=== PATIENT | male | born 2005 | race Caucasian/White ===

== ENCOUNTER → 2024-10-17 12:36 | Outpatient (BNVA) | payer OTHER, SELFPAY | PROVIDERS: PCP Pediatrics; Visit Provider Physician Assistant Surgical ==

== ENCOUNTER 2024-10-24 08:19 | Outpatient (AMB) | payer OTHER, SELFPAY ==
--- OUTSIDE RECORDS SUMMARY | 2024-10-24 08:36 | XMS_ITS | Data Portability ---
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 Winter use Not Available Not Available Not Available Pulmicort Flexhaler 180 mcg/actua tion breath activated active Not Available Not Available No t Available Flovent Diskus 250 mcg/actua tion powder for inhalatio n Inhale by inhalati on route. 09/29 completed Not Available Not Available Not Available Multi-Vit jensen With Fluoride 1 mg chewable tablet TAKE 1 TABLET BY MOUTH EVERY DAY 04/08 completed Not Available Not Available Not Available Vitals Date Recorded Body height Body mass index (BMI) Body mass index (BMI) Percentile per age and sex Body weight Systolic blood pressure Diastolic blood pressure Provider Name and Address Organization Details Last Updated DateTime 2 179.07 cm 42.2 kg/m2 99 % 763108. 53 g 116 mm[Hg] 66 mm[Hg] Cheli Nina [facility] 2 13:13:45 Date Recorded Body height Body mass index (BMI) Percentile per age and sex Body weight Body mass index (BMI) Systolic blood pressure Diastolic blood pressure Provider Name and Address Organization Details Last Updated DateTime 4 179.07 cm 99 % 200943. 85 g 47.2 kg/m2 122 mm[Hg] 72 mm[Hg] Elisabeth Long CMA [facility] 4 14:15:53 Date Recorded Body mass index (BMI) Percentile per age and sex Provider Name and Address Organization Details Last Updated DateTime 03/04/2024 99 % ADIEL CASTRO MD [address] [place] [address], [id number], [facility] 03/04/2024 14:33:36 Social History Question Answer Notes LastModified by Organizat ion Details LastModified Time Tobacco Smoking Status Never Smoker Not Available [facility] 05/11/2020 03:14:21 What Type Of Diet Are You Following? REGULAR [id number] Information not available 05/11/2020 Education Less Than 8th Grade [email or web address] Information not available 05/13/2011 Have There Been Any Changes To Your Family Or Social Situation? No [id number] Information not available 05/11/2020 Hard Of Hearing Or Deaf In One Or Both Ears? No Information not available 09/24/2015 Legally Blind In One Or Both Eyes? No Information not available 09/24/2015 Parent's Marital Status Unmarried [email or web address] Information not available 05/13/2011 Home Situation Both Parents Information not available 05/13/2011 Siblings Fingerville (M) 06/22/2006, Allison (F) 10/24/2012 Alliana (F) 04/16/2014 Information not available 04/21/2014 Childcare? None [email or web address] Information not available 05/13/2011 Passive Smoke Exposure No [email or web address] Information not available 05/13/2011 Year In School College Starting spring. 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 [employer] [id number] Information not available 05/11/2020 Do You Use Your Seat Belt Or Car Seat Routinely? Yes [id number] Information not available 05/11/2020 Are You Passively Exposed To Smoke? No nasselin Information not available 01/23/2013 How Much Tobacco Do You Smoke? No [id number] Information not available 05/11/2020 What Types Of Sporting Activities Do You Participate In? ACTIVE AT HOME [id number] Information not available 05/11/2020 General Stress Level Low Information not available 05/13/2011 Do You Use Any Illicit Or Recreational Drugs? No [id number] Information not available 05/11/2020 Have You Recently Traveled Abroad? No [id number] Information not available 05/11/2020 Year In School Kindergarten Information not available 05/13/2011 Sex: Unknown Functional Status Question Answer Note LastModified by Organization D etails LastModified Time What is your exercise level? Moderate [id number] Information not available 05/11/2020 Mental Status None recorded. Family History Relationship Description Onset Age of this Age Resolved Age Notes LastModified by Organization Details LastModified Time Paternal Grandfather Seizure disorder klisien Not available 2015 16:39:24 Paternal Grandfather Diabetes mellitus previo usly record ed as Diabet es klisien Not available 09/24/2015 16:39:24 Paternal Grandmother Seizure disorder klisien Not available 2015 16:39:24 Maternal Grandmother Blood coagulation disorder previo usly record ed as Bleedi ng Disord ers klisien Not available 09/24/2015 16:39:24 Brother Seizure disorder klisien Not available 2015 16:39:24 Brother Asthma klisien Not available 0 09/24/2015 16:39:24 Father Seizure disorder klisien Not available 2015 16:39:24 Father Hypercholest erolemia previo usly record ed as Elevat ed Choles terol klisien Not available 09/24/2015 16:39:24 Father Asthma klisien Not available 16:39:24 Mother Obese previo usly record ed as Obesit y klisien Not available 09/24/2015 16:39:24 Notes:Updated 03/01 Medical History Condition Response CARDIAC PROBLEMS Y ALLERGIC AND IMMUNOLOGIC PROBLEMS Y DEVELOPMENTAL/ BEHAVIORAL PROBLEMS Y HOSPITALIZATIONS N ACCIDENTS INJURIES Y VISION IMPAIRMENT Y ENDOCRINE PROBLEMS/DIABETES Y GI PROBLEMS/CONSTIPATION N CHICKEN POX / VARICELLA HISTORY or POSIT GUIDO TITER N ORTHOPEDIC PROBLEMS N MUSCLE/ JOINT/ BONE PROBLEMS Y DERMATOLOGIC PROBLEMS/ECZEMA Y ENT PROBLEMS/OTITIS MEDIA/ CHRONIC Y RENAL PROBLEMS Y HEMATOLOGIC /ONCOLOGIC PROBLEMS N OTHER Y NEUROLOGIC/ SEIZURES OR CONVULSIONS Y ADHD Y HEADACHES/MIGRAINES/DIZZINESS N CONGENITAL AND GENETIC PROBLEMS N INFECTIOUS DISEASE PROBLEMS Y PUMONARY PROBLEMS/ ASTHMA Y PSYCH PROBLEMS Y Immunizations Vaccine Type Date Status Note Provider Name and Address Organization Details Recorded Time MMR 09/25/19 08 completed Not Available [facility] 05/13/2011 03:19:09 DTP 01/06/20 04 completed Not Available [facility] 05/13/2011 03:19:09 DTP 03/24/20 05 completed Not Available [facility] 05/13/2011 03:19:09 DTP 11/04/19 04 completed Not Available [facility] 05/13/2011 03:19:09 DTP 03/16/20 04 completed Not Available [facility] 05/13/2011 03:19:20 IPV 01/06/20 04 completed Not Available [facility] 05/13/2011 03:19:09 IPV 11/04/19 04 completed Not Available [facility] 05/13/2011 03:19:20 IPV 03/24/20 05 completed Not Available [facility] 05/13/2011 03:19:09 Hib, unspecified formulation 11/04/19 04 completed Not Available [facility] 05/13/2011 03:19:09 Hib, unspecified formulation 12/03/19 05 completed Not Available [facility] 05/13/2011 03:19:09 Hib, unspecified formulation 03/16/20 04 completed Not Available [facility] 05/13/2011 03:19:09 MMR 12/03/19 05 completed Not Available [facility] 05/13/2011 03:19:20 Hib, unspecified formulation 01/06/20 04 completed Not Available [facility] 05/13/2011 03:19:09 Hep B, unspecified formulation 06/16/20 04 completed Not Available [facility] 05/13/2011 03:19:09 Hep B, unspecified formulation 10/01/19 04 completed Not Available [facility] 05/13/2011 03:19:09 Hep B, unspecified formulation 09/04/19 04 completed Not Available [facility] 05/13/2011 03:19:09 pneumococcal conjugate PCV 7 11/04/19 04 completed Not Available [facility] 05/13/2011 03:19:09 pneumococcal conjugate PCV 7 09/08/19 05 completed Not Available [facility] 05/13/2011 03:19:09 pneumococcal conjugate PCV 7 03/16/20 04 completed Not Available [facility] 05/13/2011 03:19:09 varicella 09/08/19 05 completed Not Available [facility] 05/13/2011 03:19:09 pneumococcal conjugate PCV 7 01/06/20 04 completed Not Available [facility] 05/13/2011 03:19:09 Tdap 09/12/19 15 completed Not Available [facility] 07/26/2019 02:33:47 meningococcal MCV4P 09/12/19 15 completed Not Available [facility] 07/26/2019 02:35:59 DTaP, unspecified formulation 09/30/19 09 completed Not Available [facility] 05/13/2011 03:17:07 IPV 09/30/19 09 completed Not Available [facility] 05/13/2011 03:17:07 varicella 09/30/19 09 completed Not Available [facility] 05/13/2011 03:19:09 HPV9 09/14/19 16 completed Not Available [facility] 07/26/2019 02:36:41 HPV9 11/17/19 16 completed Not Available [facility] 07/26/2019 02:36:44 HPV9 12/09/19 17 completed Not Available [facility] 07/26/2019 02:37:40 COVID-19, mRNA, LNP-S, PF, 30 mcg/0.3 mL dose 12/04/19 21 completed María Mccollum RN null, [facility] 02/23/2021 08:26:38 COVID-19, mRNA, LNP-S, PF, 30 mcg/0.3 mL dose 12/25/19 21 completed María Mccollum RN null, [facility] 02/23/2021 08:27:11 COVID-19, mRNA, LNP-S, PF, 30 mcg/0.3 mL dose 09/07/19 22 completed Karen Hall null, [facility] 09/08/2021 08:26:52 meningococcal MCV4P 04/08/20 20 completed Jory Carlos MD [address] [place] [address], , [facility] 04/08/2020 17:09:01 Hep A, ped/adol, 2 dose 04/08/20 20 completed Jory Carlos MD [address] [place] [address], , [facility] 04/08/2020 17:09:01 Influenza, split virus, quadrivalent, PF 04/08/20 20 completed Jory Carlos MD [address] [place] [address], , [facility] 04/08/2020 17:09:01 meningococcal B, OMV 04/08/20 20 cancelled patient objection Jory Carlos MD [address] [place] [address], , [facility] 04/08/2020 15:22:46 Hep A, ped/adol, 2 dose 09/30/19 22 completed Cheli Wood null, [facility] 09/29/2021 14:26:09 meningococcal B, OMV 09/30/19 22 completed Cheli rollins, [facility] 09/29/2021 14:26:10 Past Encounters Encounter ID Performer Location Encounter Start Date Encounter Closed Date Diagnosis/Indication Diagnosis SNOMED-CT Code Diagnosis ICD10 Code Diagnosis Note [id number] P[facility]a [facility] [address] [facility] [place] [address] 05/14/2007 14:35:27 05/14/2007 15:38:49 [id number] [facility] [place] [facility] [address] [place] [address] 06/05/2007 11:01:13 06/05/2007 11:02:10 [id number] [facility] [place] [facility] [address] [place] [address] 07/03/2007 14:46:11 07/03/2007 15:46:25 [id number] [facility] [place] [facility] [address] [place] [address] 08/16/2007 16:45:08 08/16/2007 17:03:09 [id number] [facility] [place] [facility] [address] [place] [address] 09/25/2007 10:05:09 09/25/2007 11:07:20 [id number] [facility] [place] [facility] [address] [place] [address] 01/21/2008 00:00:00 03/18/2009 01:23:50 [id number] [facility] [place] [facility] [address] [place] [address] 06/19/2008 15:48:51 03/18/2009 01:23:50 [id number] [facility] [place] [facility] [address] [place] [address] 07/29/2008 15:52:07 03/18/2009 01:23:50 [id number] [facility] [place] [facility] [address] [place] [address] 09/29/2008 09:42:09 09/29/2008 10:47:58 [id number] [facility] [place] [facility] [address] [place] [address] 10/14/2008 14:36:38 10/14/2008 15:11:44 [id number] [facility] [place] [facility] [address] [place] [address] 11/03/2008 11:09:36 11/03/2008 11:36:26 [id number] [facility] [place] [facility] [address] [place] [address] 4 09/13/2009 16:59:46 09/13/2009 18:10:28 [id number] Karen Hall [facility] [place] [facility] [address] [place] [address] 12/22/2009 13:27:39 12/22/2009 15:20:55 [id number] [facility] [place] [facility] [address] [place] [address] 04/13/2010 13:03:34 04/13/2010 13:51:14 [id number] [facility] [place] [facility] [address] [place] [address] 09/07/2010 12:50:29 09/07/2010 13:03:56 [id number] [facility] [place] [facility] [address] [place] [address] 09/26/2010 09:10:24 09/26/2010 09:30:24 [id number] Karen Hall [facility] [place] [facility] [address] [place] [address] 05/25/2011 13:07:00 05/25/2011 14:51:09 [id number] [facility] [place] [facility] [address] [place] [address] 06/05/2011 15:45:31 06/05/2011 17:08:07 [id number] [facility] [place] [facility] [address] [place] [address] 06/19/2011 14:50:22 06/19/2011 16:43:15 [id number] [facility] [place] [facility] [address] [place] [address] 06/21/2011 09:33:49 06/21/2011 10:21:18 [id number] [facility] [place] [facility] [address] [place] [address] 08/22/2011 14:22:23 08/22/2011 16:33:30 [id number] [facility] [place] [facility] [address] [place] [address] 4 09/13/2011 14:43:51 09/13/2011 15:18:36 [id number] [facility] [place] [facility] [address] [place] [address] 4 01/30/2012 14:33:41 01/30/2012 15:16:08 [id number] Karen Hall [facility] [place] [facility] [address] [place] [address] 09/12/2012 13:15:01 09/12/2012 16:30:43 [id number] Jory Carlos MD [address] [address] 10/30/2012 12:48:45 10/30/2012 14:16:[id number] [address] 01/23/2013 13:37:33 01/23/2013 17:22:03 Obesity 811335041 Continue w/excellen t control-BM I now 91%-and down 3 lbs. Will hold off on labs since doing so well. Will continue 1 yucky snack-no amilcar drinks-ski m milk-watch portions and exercise. F/u 2 months [id number] Miracle Ramirez [address] [address] 03/26/2013 13:35:21 03/26/2013 15:42:13 Eczema 67938695 using westcort cream qd-will increase to bid. Continue moisturize r Asthma 321398617 Just started the flovent-re cent visit Dr Vines-f/u in 07/22 Allergy 014648656 ? trou ble w/peanuts- will give epipen to have and refer to gold leaf printer Abnormal weight gain 582685261 Continues to do well-BMI now only @ 88%. Does have appt w/wgt management next month. Will f/u here prn. [id number] Jory Carlos MD [address] [address] 09/12/2013 13:11:48 09/12/2013 15:26:49 Well child 127007893 Adjustment disorder 51157666 Was seen at [facility] by Suni Lucas-saw X 1 year-wasn' t helpful-wi ll be starting w/a new therapist- Allergy 911295533 ? trou ble w/peanuts- has epipen still needs to see gold leaf printer Asthma 521056876 On flovent-rl ast visit Dr Vines 03/2013-nee ds f/u appt Attention deficit hyperactivity disorder, combined type 61665024 Was seen Psychiatry at [facility]-w as on stimulant- was on meds x 2-4 weeks-only tried 1 medication -mom to contact them again-if they won't see him I will need the records and will f/u here for eval. 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 Eczema 45313771 using westcort cream prn Continue moisturize r Seizure 19979488 Dr Light- no seizures in 2 years-disc harged him 2011 Childhood obesity 087196407 Large wgt gain-over last 6 months-BMI @ 93%-next appt w/wgt mangement in 3 months [id number] Leilani Casey MD [facility] [place] [facility] [address] [place] [address] 10/13/2013 18:03:54 10/13/2013 18:14:04 Acute pharyngitis 208878080 [id number] Katiuska Parks M.A. [facility] [address] [place] [address] 06/11/2014 10:16:18 06/11/2014 11:27:47 Acute pharyngitis 781396810 Concussion [id number] Karen Hall [facility] [address] [place] [address] 09/11/2014 13:10:37 09/11/2014 16:50:17 Well child 357364682 will defer HPV for now Asthma 526280375 On flovent- sees Dr Vines-will start albuterol before exercise Allergy 487206064 ? trou ble w/peanuts- has epipen still needs to see gold leaf printer Childhood obesity 344656839 has appt w/weight management scheduled- will defer labs to them Adjustment disorder 51500039 sees therapist at [facility] Attention deficit hyperactivity disorder, combined type 17084420 Seen by Psychiatry at [facility]- has been tried on medication -has 504 plan Developmen grey academic disorder 5928907 Had testing thru [facility]-d id recommend IEP 10/2010--fan s 504 plan now for ADHD. Eczema 19242604 using westcort cream prn Continue moisturize r Seizure 09652384 Dr Light- no seizures in 3 years-disc harged him [id number] [address] 09/22/2014 16:02:17 09/22/2014 16:45:07 Asthma 983095083 Viral syndrome 296844071 [id number] Preethi Mcdermott [address] [address] 12/09/2014 16:00:04 12/09/2014 17:14:11 Impetigo bullosa 937382472 [id number] Jory Carlos MD [address] [address] 01/06/2015 15:28:43 01/06/2015 17:16:06 Injury of finger 83357439 [id number] Jory Carlos MD [address] [address] 03/19/2015 16:32:47 03/19/2015 17:44:26 Acute pharyngitis 807933845 Asthma 671959225 restart flovent [id number] Jory Carlos MD [address] [address] 04/28/2015 15:30:59 04/28/2015 17:29:31 Acute pharyngitis 525489657 J02.9 Knee pain 61208478 M25.5 62 Longstandi ng intermitte nt knee pain [id number] Chin Hi [address] [address] 08/18/2015 14:50:17 08/18/2015 15:24:28 Acute pharyngitis 646403072 J02.9 Asthma 842799958 J45.90 9 Upper resp iratory infection 53112096 J06.9 [id number] Jory Carlos MD [address] [address] 09/14/2015 11:00:34 09/14/2015 12:55:47 Active or passive immunization 509246032 Z23 Well child 223098493 Z00 .129 Allergy 110163381 Z91.09 ? trouble w/peanuts- has epipen still needs to see gold leaf printer Asthma 350556092 J45.90 9 on flovent-se es Dr Vines-last visit ? 03/2014-mila nguyen make f/u appt Adjustment disorder 1722 600 F43.20 stopped seeing therapist at [facility] approx 3 months ago--would n't talk w/therapis t. Behavior is better Attention deficit hyperactivity disorder, combined type 54481743 F90.2 Seen by Psychiatry at [facility]- in the past-has been tried on medication X 1- -has 504 plan Developmen grey academic disorder 8032340 F81.9 has 504 plan now for ADHD. Eczema 99591179 L30.9 using westcort cream prn Continue moisturize r & dove soap Knee pain 10806161 M25.5 67 saw ortho- not an issue now Childhood obesity 164353 003 Z68.54 saw wgt management x 1- -BMI stable @ 95%-will return to weight management -will get labs done there [id number] Sophia Han [facility] [address] [place] [address] 09/24/2015 16:08:06 09/24/2015 17:05:22 Acute pharyngitis 832464854 J02.9 Streptococ amilcar sore throat 58782387 J02.0 [id number] Jory Carlos MD [facility] [employer] [address] 11/17/2015 15:27:29 11/17/2015 15:44:17 Active or passive immunization 911841598 Z23 [id number] Jory Carlos MD [facility] [employer] [address] 05/26/2016 15:45:21 05/26/2016 17:15:59 Asthma 253415340 J45.[address] Vines-? still needs to be on flovent ( last filled 07/2014 ) Low back pain 418930746 M54.5 pelvic rim pain posteriorl y w/running- x 2 weeks-? muscular- vs SI joint-will stretch before running-tr y ibuprofen- if still an issue in a few weeks will refer to sports medicine [id number] Jory Carlos MD [facility] [employer] [address] [address] 06/07/2016 14:01:52 06/07/2016 17:19:36 Child attention deficit disorder 736782893 F90.9 [id number] MD DK George Anitha hogan [address] [place] [address] [place] [address] 07/27/2016 12:41:57 07/27/2016 14:35:53 Child attention deficit disorder 581617054 F90.9 currently on Adderall 10 XR daily-pare nt scales w/ small improvemen t-do not have rn social work which had the most impairment . Will get that now and increase to 20 mg. Will f/u by phone in 2 weeks. Can use only school days now. Watch weight since has had some loss.Get repeat scales before next visit.Mom to talk with school about testing for LD. Did have neuropsych testing in 2010 through [facility] that had some issues demonstrat ed. 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 He does have some itrritabil ity after school and has some trouble getting homework done. Will try Adderall 5 mg after school-can increase to 10 mg.Can continue to use only school days now.Mom to talk with school about testing for LD again Did have neuropsych testing in 2010 through [facility] that had some issues demonstrat ed assistant professor of english shows problems with written and expressive language that can signal LD.f/u at [facility]-needs to schedule. Will schedule dedicated ADD recheck after that. [id number] MD DK George Anitha hogan [address] [place] [address] [place] [address] 12/08/2016 11:26:17 12/08/2016 13:31:52 Active or passive immunization 629961210 Z23 Well child 816511142 Z00 .129 will test for LD next year. EXcellent weight control-al though BMI still > 85%-likely combinatio n ADD meds and healthy eating. Will be following at ADD rechecks. Child atte ntion deficit disorder 496652191 F90.9 JUst saw this week-ramiro skelton on Adderall 20 XR daily, teacher scales w/ much improvemen t except hong konger which is worse.Vick oleary also does not like that teacher. He does have some irritabili ty after school and has some trouble getting homework done. Will try Adderall 5 mg after school-can increase to 10 mg.Can continue to use only school days now. Will be off for the summer. Will meet at the end of the summer /beginning or the school year. Allergy 986919313 Z91.09 ? trouble w/peanuts- has epipen still needs to see gold leaf printer- appt 02/2017 Adjustment disorder 1722 6007 F43.20 stopped seeing therapist at [facility] 2016--woul dn't talk w/therapis t. Behavior is better Developmen grey academic disorder 3987430 F81.9 has 504 plan now for ADHD. Asthma 665146103 J45.[address] Vines 2013-only uses when exercise for a long time-will use 2 puffs before exercise -if doesn't work will f/u. MDI demonstrat ed and info sheet given. Eczema 51977728 L30.9 resolved [id number] Jory Carlos MD [address] [address] 05/23/2017 10:14:21 05/23/2017 11:53:15 Child attention deficit disorder 751862331 F90.9 Currently on Adderall 20 XR school days. Teacher scales are great!!! 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 No trouble getting homework done now after school. Got crabby w/ Adderall 5 mg after school. Has 504 plan. Behavior is better. Weight increase likely 2nd to being off medication for the summer. Goals met. Will still pursue the eval for LD since needing outside help to be successful . Will remeet in 3 months. Needs to have something for lunch. Asthma 570710414 J45.90 9 will use before basketball Seborrheic dermatitis of scalp 914235916 L21.0 diffuse scaling-us e dandruff shampoo [id number] Jory Carlos MD [facility] [place] [address] [place] [address] 10/10/2017 10:25:58 10/10/2017 12:02:25 Child attention deficit disorder 079623305 F90.9 Currently on Adderall 20 XR school days. . Got crabby w/ Adderall 5 mg after school. Has 504 plan.Grade s are excellent! !! Goals met. Never pursued eval for LD since was doing so well in school. Will remeet in 2 months. at [facility]. Will meet after the summer after school has been in session for a few months & get teacher scales before then. [id number] Jory Carlos MD [facility] [place] w [address] [place] [address] 01/03/2018 14:46:38 01/03/2018 17:50:07 Well child 634964620 Z00.129 Mom to get [employer] book Re: Teenagers Overweight in childhood 353611032 Z68.53 increase in BMI to 93%-discus sed healthy eating and exercise- goal will be to keep weight the same-will f/u at next ADD checK Disorder of vision 78027 002 H53.9 no glasses-mo m to check to see when he needs his next appt Child atte ntion deficit disorder 284377371 F90.9 Currently on Adderall 20 XR school days. Will be off medication for the summer. . Got crabby w/ Adderall 5 mg after school. Has 504 plan.Grade s are much better. Goals met. Never pursued eval for LD since was doing so well in school. Will meet after the summer after school has been in session for a few months & get teacher scales before then. Allergy 972469739 Z91.09 saw gold leaf printer 04/24-has epipen-nee ds f/u 04/25 Adjustment disorder 1722 6007 F43.20 stopped seeing therapist at [facility] 2015--woul dn't talk w/therapis t. Behavior is better-see ms like typical teen Developmen grey academic disorder 3622383 F81.9 has 504 plan now for ADHD. Asthma 833122769 J45.90 9 will use before basketball -MDI demonstrat ed ( had poor technique) Eczema 64066668 L30.9 still an issue-west yannick prn Verruca vulgaris 5550665 3 B07.9 OTC meds 1st-f/u cryo prn [id number] Jory Carlos MD [facility] [place] [address] [facility] [address] 03/20/2018 15:53:33 03/20/2018 17:29:15 Child attention deficit disorder 718334361 F90.9 Currently on Adderall 20 XR school days. Was off medication for the summer. . Has 504 plan. Goals were met last year. Never pursued eval for LD since was doing so well in school.Now starting 8th grade feels disorganiz ed and less focused. Will increase to 30 mg-remeet in 2- 4 weeks & get teacher scales before then. Will contact me sooner if any issues on the increased dose of medication . Will continue melatonin for sleep. [id number] Jory Carlos MD [facility] [place] [address] [place] [address] 06/21/2018 10:44:58 06/21/2018 12:25:12 Child attention deficit disorder 547206677 F90.9 Currently on Adderall 30 XR school days.Incre ased from 20XR this school year. Has 504 plan. Melatonin works well for sleep. Discussed limiting screen time 1.5 hrs before bedtime to help with sleep issues. . Teacher's scales are all good-excep t some impairment noted in social studies. Grades however are not good in hong konger or social studies. Bunny is not sure that his medication is working any better at the higher dose- & appetite has decreased. Will try 20 XR again and see if he notices a difference . Mom to call me next week w/ progress. Will start on weekends also to see if life is better. Will then fill script for whatever works best. Never pursued eval for LD since was doing so well in school last year- really struggles w/ hong konger and social studies this this year in 8th grade. Mom to pursue now. Did have eval 2011 that was suggestive of speech and language issues. Adjustment disorder 1722 6007 F43.20 [facility] her weekly- just started- re: behavior at home Verruca vulgaris 5381543 3 B07.9 wart-cryo today. Info sheet given. [id number] Jory Carlos MD [address] [address] 10/04/2018 16:11:54 10/04/2018 17:25:22 Child attention deficit disorder 237890597 F90.9 Currently on Adderall 30 XR school days.Incre ased from 20XR this school year. Has 504 plan. Bunny is not getting enough sleep at night. Melatonin works well for sleep. Will increase to 5 mg Discussed limiting screen time 1.5 hrs before bedtime to help with sleep issues. . Teacher's scales were all good-excep t some impairment noted in social studies. Unclear how grades are right now. Never pursued eval for LD since was doing so well in school last year- really struggles w/ hong konger Did have eval 2011 that was suggestive of speech and language issues. Mom still needs to pursue eval. F/u at [facility] in 3 months. [id number] Jory Carlos MD [facility] [address] [address] 12/06/2018 10:42:51 12/06/2018 14:55:14 Allergy 014313573 Z91.09 Near syncope 575298462 R 55 had an episode near syncope- will work on breakfast and a snack- work on hydration. Does NOT sound like a seizure. No need for EEG at this point [id number] Jory Carlos MD [address] [address] 03/07/2019 08:23:32 03/07/2019 12:36:51 Well child 986549913 Z00.129 Can stop fluoride now. Will try OTC wart removal for wart on elbow. 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 Will hold off on labs unless unable to decrease weight. Eventual goal is is low 170s. Child atte ntion deficit disorder 592581287 F90.9 Has been off medication during the summer. Currently on Adderall 30 XR school days.. Has 504 plan. Melatonin works well for sleep. 5 mg . Bunny seemed to struggle in school last year.Did do educationa l testing last year. Has not found evidence of LD. Will get me a copy of the testing Did have eval 2011 that was suggestive of speech and language issues. Will need teacher scales before next appt. F/u in 2 months for recheck Asthma 379040459 J45.[address] Vines- started flovent and singulair- f/u w/ him in 2-3 months Allergy to peanut 694384 09 Z91.010 peanut allergy- epipens . Needs f/u w/ gold leaf printer Eczema 46514283 L30.9 has been doing well Adjustment disorder 1722 6007 F43.20 no longer seeing therapist since insurance doesn't cover [employer] [facility]- stopped seeing her at the end of the school year. Seems to be doing ok. Disorder of vision 43183 002 H53.9 needs appt w/ Dr antoine Anxiety 35698309 F41.9 improved [id number] Jory Carlos MD [address] [address] 05/09/2019 11:05:07 05/09/2019 12:18:53 Child attention deficit disorder 667357939 F90.9 On Adderall 30 XR taking school days- grades faily good- hong konger is a bit of a struggle- just had retesting done in school- no LD found but weakness in verbal comp. Will continue 504 plan.Bradley nue melatonin for sleep. f/u in 4 months- sooner if any change.Matt marcio get teacher scales when possible but before next next visit. Complainin g of - postnasal drip 899653033 R09.82 PND past 3 weeks- will try flonase- if not better in 1 week will treat for sinusitis w/ amox Increased body mass index 22210890 Z68.41 excellent weight control- weight down from 192-> 183. Will aim for BMI of 25 ( approx 173 lbs ) [id number] Jory Carlos MD [address] [address] 04/08/2020 14:31:27 04/08/2020 16:59:26 Child attention deficit disorder 579803230 F90.9 Last year was on Adderall 30 XR taken school days- Bunny felt like that was an OK dose- Has been off medication this year so far- needs to restart it.Will continue 504 plan.Since online , teacher scales will not be helpful. F/u 2 months. Allergy to peanut 960870 09 Z91.010 peanut allergy- ? epipens - will check. . Needs f/u w/ gold leaf printer ? 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 2019 had retesting done in school- no LD found but weakness in verbal comp. Asthma 489336443 J45.[address] Vines- 04/26- on flovent and singulair- will call to see if he needs a f/u appt Adjustment disorder 1722 6007 F43.20 no longer seeing therapist . Seems to be doing ok. Eczema 52640175 L30.9 has been doing well- not active for over a year Disorder of vision 80462 002 H53.9 needs appt w/ Dr antoine Well child 312614765 Z00 .129 Disc ADILSON. Continue melatonin for sleep. BP high today ( nervos re : immunizati ons. Will recheck at ADD recheck . Meningitis B vaccine before college. Active or passive immunization 387678149 Z23 Childhood obesity 796059 003 Z68.54 BMI continues to increase and now is >> 95%- discussed need to get weight down. 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 Will work on healthy eating- watch snacks and portions- needs to expand diet to eat more fruits and veggies. Check BMI labs. Will recheck at ADD checks. Eventual goal is is low 170s. May need referral to weight management clinic. Exercises education, guidance, and counseling 337734095 Z71.82 Diet education 72081496 Z71.3 Verruca vulgaris 8754327 3 B07.9 will do cryo when returns for ADD recheck [id number] Aleja Turk [address] [facility] [place] [address] 06/04/2020 10:45:23 06/04/2020 17:37:13 SARS-CoV-2 535817150 U07.1 Viral syndrome 820827879 B34.9 [id number] Jory Carlos MD [facility] An[place] [address] [address] 06/25/2020 14:22:44 06/25/2020 15:53:15 Child attention deficit disorder 614773629 F90.9 Last year was on Adderall 30 XR taken school days- Bunny felt like that was an OK dose. Restarted Adderall after [facility] a few months ago.504 plan.Since online , teacher scales will not be helpful.Gr ades aren't good but Bunny thinks that is because school is onlineCont inue melatonin school nights.F/u 3 months. Verruca vulgaris 5511303 3 B07.9 Nothing obvious today to cryo- will observe Excessive weight gain 22 0299298 R63.5 BMI >> 99 %- large weight gain over the past Tiny-will refer to weight management . Will limit dairy to 4 servings. Get a portion plate. Go to [employer]NJO[employer] ate.gov. Goal is 180 lbs. 2200- 2400 cals a day. Will continue daily exercise. Will recheck in 3 month at next visit. Increased blood pressure 18911204 R03.0 Today BP was excellent. [id number] Phong Swenson MD [facility] [place] [address] [address] 09/27/2020 15:40:49 09/27/2020 15:55:48 Paronychia of toe 645864061 L03.039 [id number] [facility] [address] [address] 02/23/2021 08:03:26 02/23/2021 14:21:45 Child attention deficit disorder 001300601 F90.9 ON adderall 30 XR school days- Bunny thinks this is a good dose -Grades weren't good but Bunny thinks that is because school was online.Dad is concerned that Bunny is forgetful about chores but I am not convinced that this is ADD related.We discussed some ways that may be help Bunny remember to do his chores.Has 504 plan. Continue melatonin school nights.F/u 3 months. Increased body mass index 73580587 Z68.41 Almost 50 lb weight gain over the past year- BMI >>>99 % - Bunny is already exercising 1 hr a day- has cut back on milk. NO calorie drinks. Will work on decreasing snacks more. Would get a potion plate. Sibs already on wait list for weight management . If he can get his weight down I will follow him here. Will repeat BMI labs at [facility] in a few months [id number] Phong Swenson MD [facility] [address] [place] [address] 03/07/2021 08:31:35 03/08/2021 14:04:40 Tuberculosis screening 162068781 Z11.1 [id number] Jory Carlos MD [facility] [place] [address] [place] [address] 09/29/2021 13:05:18 09/29/2021 17:26:53 History of SARS-CoV-2 7850362949 03580024 Z86.16 Had Covid 2 months ago- back to activity- never had cardiac recheck Anxiety 42105684 F41.9 no longer an issue Child atte ntion deficit disorder 265104625 F90.9 Had been on adderall 30 XR school days- Bunny thought this was a good dose. At his last ADD recheck 7 months ago , Dad was concerned that Bunny was forgetful about chores but I was not convinced that that was ADD related.We discussed some ways that might help Bunny remember to do his chores. Last refill for medication was 6 months ago . He was supposed to f/u in 3 months.Has 504 plan.Ramya than decided that he wanted to try off his medication - he feels that he is doing well. If he is interested in restarting medication he will let us know Developmen grey academic disorder 8884958 F81.9 Has 504 plan now for ADHD. 2019 had retesting done in school- no LD found but weakness in verbal comp. Allergy to peanut 290090 09 Z91.010 Peanut allergy- epipens - Needs f/u w/ gold leaf printer ? last visit 2017 Asthma 489191815 J45.[address] Vines- 04/26- was on flovent and singulair- stopped medication a while ago. Has not needed to use albuterol . Does have it at home. If starts to need it frequently will f/u. Eczema 93474050 L30.9 Not an issue for a while Adjustment disorder 1722 6007 F43.20 no longer seeing therapist . Seems to be doing ok. Disorder of vision 07615 002 H53.9 needs appt w/ opthal- it has been a long time since his last visit- used to wear glasses Verruca vulgaris 1743385 3 B07.9 resolved Childhood obesity 522669 003 Z68.54 BMI is 42.2. Bunny has gained 28 lbs from his last WCC but has lost 4 lbs over the past 7 months. Will continue to work on healthy eating- watch snacks and portions- needs to expand diet to eat more veggies.Ev entual goal is is low 170s.Will recheck weight in 3 months.Jamison lifies for bariatric surgery since BMI is > 40. May need referral to weight management clinic-if at his recheck weight increases. Last checked BMI labs 2019- needs repeat ( didn't check LFTs ) Hypertriglyceridemia 302 825046 E78.1 last trig 260- will repeat fasting Active or passive immunization 685909736 Z23 Active immunization 3387 9002 Z23 Adult heal th examination 715154735 Z00.00 Disc ADILSON. Continue melatonin for sleep. [id number] Leilani Casey MD [address] [address] 02/08/2022 13:31:01 02/08/2022 14:45:51 Impetigo bullosa 048951450 L01.03 [id number] Jory Carlos MD [address] [address] 05/12/2022 16:34:16 05/12/2022 19:59:36 Acute pharyngitis 618119886 J02.9 [id number] Leilani Casey MD [address] [address] 01/16/2024 16:18:16 01/16/2024 17:11:45 Acute pharyngitis 828671728 J02.9 Asthma 376993725 J45.90 9 [id number] ADIEL CASTRO MD [address] [address] 03/04/2024 14:07:27 03/05/2024 07:29:27 Adult health examination 851573346 Z00.00 Diet education 07029426 Z71.3 Exercises education, guidance, and counseling 697193473 Z71.82 Screening for disorder 725915080 Z13.31 Abnormal weight gain 161 932773 R63.5 Morbid obesity 596021665 E66.01 Health Concerns Section Related Observation LastModified by Organization Detai ls LastModified Time None Recorded Concern Status LastModified by Organization Details LastModified Time None Recorded Advance Directives Directive None Recorded Payers Encounter Date Sequence Insurance Name Policy Number Policy Guerrero Covered Member ID Guerrero Member ID Guarantor Name 09/29/2021 1 [place] [facility] Bunny Koromachelsea Russo [id number] Rosalie Koroma 02/08/2022 1 [place] [facility] Bunny Koromachelsea Russo [id number] Rosalie Koroma 05/12/2022 1 [place] [facility] Koromachelsea Russo [id number] Rosalie Koroma 01/16/2024 1 [place] [facility] Bunny Koromachelsea Russo [id number] Rosalie Koroma 03/04/2024 1 [place] [facility] Bunny Warechelsea Russo [id number] Rosalie Koroma Notes Date Note Type Note Provider Name and Address Organization Details Recorded Time 02/08/2022 text/html RS Sick Visit Narrative HistoryReported bypatient.Notes:Blist er rash started on R arm 3 days ago - spreading to thighs, arms, face. Itchy until they popped - yellow drainage. Not painful. No cough or congestion. No ST. No FAN. Denies myalgias. No N/V/D. Afebrile. Normal energy. Sleeping well. Normal appetite. Applying hydrocortisone cream for itch & triple antibiotic ointment. No OTC Meds taken. No sick contacts. Returned from [email or web address] 3 days ago. Has just started using antibacterial soap. Has been swimming in ocean. Lesions started BUEs - R antecub fossa area and L axilla but not where hair is present, now also on L lower abd/L popliteal fossae/R cheek and R eyebrow Leilani Casey MD [address] [place], [place], , [facility] 02/08/2022 14:06:26 05/12/2022 text/html RS Sick Visit Narrative HistoryReported bypatient.Notes:Pt here for a cough and ST that started 2 days ago.Pt has complained of FAN and body aches. Afebrile. No ear pain. No N/V/D. No new rashes noticed. No chills. No nasal congestion. Appetite slightly decreased. Energy level normal.Nyquil x 1. NO other medication.Has asthma- doesn't feel tight.Negative at home covid test performed yesterday.Brother w/ similar sx. Jory Carlos MD [address] [place] [address], , [facility] 05/12/2022 19:46:33 01/16/2024 text/html RS Sick Visit Narrative HistoryReported bypatient.Notes:Pt is here for a ST x 4 days.Dry cough, Congestion x 4 days.Intermittent SOB noticed 2 days ago. Hasn't been using inhaler.AfebrileNo sx of N/V/D, No FAN, No ear pain, No body aches, Afebrile.OTC meds Taken.Girlfriend dx w/ PNA 2 wks ago.Needs new Rx for inhaler. Leilani Casey MD [address] [place] [address], , [facility] 01/16/2024 16:56:22
--- NOTE | 2024-10-24 10:04 | A.OFFVIS_ITS ---
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 *SEE COMMENTS*: Details: Start time: 9.53am, End time: 10.38am ?I spent 40 minutes speaking with the patient on the phone plus an additional 5 minutes reviewing and updating records for a total of 45 minutes HPI Comments Details: Previous weight loss efforts: self diet this year (lost 20lbs and maintains) Wakes up: 7.30am, Sleeps: 11pm Breakfast: skips Lunch: 3-4/wk 11.30am (Ham and cheese croissant) Dinner: 9pm (chicken tenders and mac & cheese) Snacks: 2-3 snacks before dinner (cereal, chips), one after dinner (same) Exercise: Has home stationary bike Beverages: Coffee/tea: none, soda: Mountain Dew (4 days/wk), juice: none, ETOH: none PFSH Medical History (Updated 10/24/24 @ 10:11 by Rufus Still MD) Anxiety Morbid obesity Blocked tear duct, congenital Epilepsy ADHD Asthma Telehealth Telehealth Telehealth Platform: Telephone Location of provider rendering services: practice address Location of patient: address on file Patient Identification confirmed using: Name, : Yes Telehealth method: voice only Patient verbally consented to treatment: Yes Patient verbally consented to billing insurance company: Yes Patient informed of any privacy concerns related to visit: Yes Minutes spent on Phone/Video with Pt.: 45 Assessment & Plan Assessment & Plan (1) Morbid obesity: Code(s): E66.01 - Morbid (severe) obesity due to excess calories Category: Medical Plan: 1.? Plan for lap sleeve gastrectomy. If diaphragmatic or ventral hernias are present at time of surgery, these will be repaired laparoscopically as well. I emphasized the importance of close follow-up, adherence to instructions and good communication. The surgery does not replace the need to change your lifestlyle which is the cause of the obesity problem. The surgery provides the motivation to try again to change your lifestyle, it reduces the appetite and make the transition to a better lifestyle easier and doubles the amount of weight you would lose compared to doing the lifestyle change without the surgery. You will need to be on a liquid diet with protein shakes for 2 weeks before surgery to maximize weight loss and boost your nutritional status to recover better from surgery and also for the first two weeks after surgery to let the stomach heal before we introduce other foods. After the first 2 weeks we will introduce protein bars and soft foods like scrambled eggs, cottage cheese and yogurt and after the 6th week will introduce meat, fish and cooked vegetables in small amounts. Over time you should be able to eat everything in small amounts. Side effects like nausea, vomiting, heartburn or abdominal pain are not common in the practice unless you are not following in the practice. This operation requires lifetime commitment to following in our practice and communication with me. You will much less weight and experience side effects if you don?t communicate or not following in the practice. Complications are rare and in our practice is about 1/10 of the national average. However, you can develop bleeding that may require transfusion (hasn?t happened for year in the practice), you may from complications (we did not have any deaths in the practice) and infections. Infections are usually a result of breakdown in communication or not understanding or following directions correctly. They are difficult to treat, they can happen during the first 6 weeks, they may require to be in the hospital for weeks or even months, not being able to eat by mouth and you may have drains and surgeries to try and correct the issue. Other risks and complications include possible conversion to an open procedure, leaks, small bowel obstruction, blood clots, cardiac, or pulmonary complications, as [facility] complications such as ulcers, insufficient weight loss and vitamin deficiencies. 2. You will receive a link of our software hilda to generate an individualized nutritional and exercise plan specific for you. Please send me a screenshot of the plans you will generate Meal to include lean meat (beef, fish, pork, turkey, chicken), or malawian yogurt, or egg whites, or beans with a salad with olive oil and fruits (berries, pears, apples, kiwi). Avoid salt, breads, potatoes, rice, pasta, desserts. ?3. If you choose shakes, each shake would be drunk slowly, like coffee in a period of 2 hours. ?4. If you choose bars, cut each bar in 4 pieces and eat each piece in 30min ?to make each bar last 2 hours. ?5. I emphasized the importance of measuring accurately the food portion and measure it when serving the food in plate ?6. The meal portions include a specific number of forks of meat and salad. You always eat the meat portion but you can replace up to half of salad/vegetables portion with rice, potatoes or pasta, or a fruit ?if you like. The less you do it the better weight loss will be. ?7. One full-size fork is what it can be scooped on the fork without falling aside and not what can be bit with the fork. Use regular forks like those you find in a typical restaurant. ?8.? Please send me weight measurements with your body composition scale as soon as possible and then once a week. Always include your diet and exercise plan. 9. The best exercise choice would be to use your stationary bike at home that can track calories. You can create and exercise plan with the [place] hilda. ?11. Goal is to lose at least 1.5-2lbs per week ?12. Goal to lose 10% of your weight before surgery, which is about 33lbs. [facility] weight goal: 300lbs before surgery 13. Please follow the diet plan exactly without any change. If you don't like something about the plan or you feel hungry you need to communicate with me so I can help you revise the plan. You should not change the plan yourself. 14. To be scheduled for EGD to assess the stomach's anatomy. The possibility of biopsies was discussed. Patient needs to avoid use of NSAIDs and aspirin for 1 week prior to EGD. You must be on liquids only the day before your endoscopy. Risks of perforation and bleeding was discussed with the patient. This will be an outpatient procedure with IV sedation. Orders: Orders Insulin Today E66.01 - Morbid (severe) obesity due to excess calories, J45.909 - Unspecified asthma, uncomplicated H Pylori Breath Test Today E66.01 - Morbid (severe) obesity due to excess calories, J45.909 - Unspecified asthma, uncomplicated Complete Blood Count Auto Diff Today E66.01 - Morbid (severe) obesity due to excess calories, J45.909 - Unspecified asthma, uncomplicated IRON PROFILE Today E66.01 - Morbid (severe) obesity due to excess calories, J45.909 - Unspecified asthma, uncomplicated Vitamin B12 and Folate Today E66.01 - Morbid (severe) obesity due to excess calories, J45.909 - Unspecified asthma, uncomplicated Vitamin B1 Today E66.01 - Morbid (severe) obesity due to excess calories, J45.909 - Unspecified asthma, uncomplicated TSH reflex Free T4 Today E66.01 - Morbid (severe) obesity due to excess calories, J45.909 - Unspecified asthma, uncomplicated Ferritin Today E66.01 - Morbid (severe) obesity due to excess calories, J45.909 - Unspecified asthma, uncomplicated US abdomen comp w elastography Today E66.01 - Morbid (severe) obesity due to excess calories, J45.909 - Unspecified asthma, uncomplicated FL upper GI w air Today E66.01 - Morbid (severe) obesity due to excess amilcar ories, J45.909 - Unspecified asthma, uncomplicated Hemoglobin A1c Today E66.01 - Morbid (severe) obesity due to excess calories, J45.909 - Unspecified asthma, uncomplicated Lipid Panel Today E66.01 - Morbid (severe) obesity due to excess calories, J45.909 - Unspecified asthma, uncomplicated Comprehensive Met. Panel Today E66.01 - Morbid (severe) obesity due to excess calories, J45.909 - Unspecified asthma, uncomplicated Zinc Today E66.01 - Morbid (severe) obesity due to excess calories, J45.909 - Unspecified asthma, uncomplicated C Reactive Protein Today E66.01 - Morbid (severe) obesity due to excess calories, J45.909 - Unspecified asthma, uncomplicated Vitamin A Today E66.01 - Morbid (severe) obesity due to excess calories, J45.909 - Unspecified asthma, uncomplicated Vitamin D 25-OH Total Today E66.01 - Morbid (severe) obesity due to excess calories, J45.909 - Unspecified asthma, uncomplicated XR chest 2V Today E66.01 - Morbid (severe) obesity due to excess calories, J 45.909 - Unspecified asthma, uncomplicated ECG 12 lead EKG Today E66.01 - Morbid (severe) obesity due to excess calories, J45.909 - Unspecified asthma, uncomplicated Referrals Behavioral Health Referral E66.01 - Morbid (severe) obesity due to excess calories, J45.909 - Unspecified asthma, uncomplicated Nutrition/Dietitian Referral E66.01 - Morbid (severe) obesity due to excess calories, J45.909 - Unspecified asthma, uncomplicated
[2024-10-24 10:12] VITALS: BMI 46.4
== END 2024-10-24 10:39 | disposition home or self-care (01) ==
PROVIDERS: PCP Pediatrics; Visit Provider Surgery
DX: E66.01 Morbid (severe) obesity due to excess calories (principal); E66.813 Obesity, class 3; Z68.42 Body mass index [BMI] 45.0-49.9, adult
CPT/HCPCS: 98010

== ENCOUNTER 2024-11-24 13:12 | Outpatient (AMB) | payer OTHER, SELFPAY ==
--- NOTE | 2024-11-24 13:05 | MHC.WMTHER ---
Intake Intake Visit Reasons: VIDEO Intake Allergies peanut Allergy (Mild, Verified 10/24/24 10:09) [facility] Medical History (Updated 10/24/24 @ 10:11 by Rufus Still MD) Anxiety Morbid obesity Blocked tear duct, congenital Epilepsy ADHD Asthma Behavioral Health Assessment Weight Management Therapy Therapy Notes Details The patient is a 19-year-old male presenting for his initial visit to begin the behavioral health assessment as part of the surgical weight loss program. He was referred by his mother, who previously underwent weight loss surgery. The patient reports having attempted several weight loss strategies, including a low-calorie meal plan, low-carb diet, eliminating snacks, and maintaining a gym membership. He is now seeking a long-term solution to support sustained weight loss and a healthier lifestyle. Presenting Concerns Referral Source WMP-Provider. Reason for referral Completion of behavioral health assessment as part of process for weight-loss surgery. Precipitating Event Obesity. Living Situation Current Living Situation Own and Relative's/Guardian's Cliff Comments PT lives with his parents and 2 siblings. Food/Weight/Diet Expectations of change PT started the program at 333 lbs at the office scale, however he reported to be at 339Lbs at his home scale And most recent weight as of was 334 lbs using his home scale. The initial goal is to lose 10% of your weight before surgery, which is about 33lbs. Ultimate weight goal: 300lbs before surgery. PT is implementing the following: Current meal plan: Using the normal plan. He's doing a combination of shakes and 1 meal at day (dinner) Exercise plan: stationary bike. 150cal 2 times at day, trying to do 5-6 days at week. Scale: YEs Communication w/ the Dr: yes on Tuesdays. History/Relationship with food Example of meals before starting the program: Breakfast: Lunch: Dinner: Snacks: Drinks/Liquids: History/Relationship with weight In the last 10 years, the patient's Lowest weight was 180 lbs. (before COVID) and highest 350Lbs around June/2024. Social History Family history and relationship PT has been in a relationship for the past 2 years, he currently lives with his parents and 3 siblings, he's the oldest. 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 Developmental history and status Diagnosed with ADHD at age 4, had a 504 plan through school. Social support Parents, girlfriends, best friend. Community support Car club. 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 Cultural/Ethnic information Mixed, his mom is white, and his dad is . Legal Involvement and History Current or historical involvement with the legal system? None reported. Education Highest grade completed Hs. Some college. Preferred learning style Learn by doing and Visual Currently enrolled in educational program? No Interested in further educational program? 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 ) Wants help to find employment? No Meaningful activities cars, playing [employer], outdoor activites. Financial Situation Describe current financial situation Comfortable Financial assistance? None Service Service? No Mental Health and Addiction Treatment Current/Past substance abuse? No Comments Alcohol: Social. 1 beer. Cigarettes/Tobacco: None. Cannabis/Edibles: None. Current/Past addictive behavior concerns? No Psychiatric history PT reports he went to counseling around 6 years old as they were going through family issues. He was diagnosed with ADHD around age 4 and was prescribed Adderall in high school, but has not taken it since 10th grade. Denies having been in counseling as an adult. Denies any hospitalizations or MH crisis. Denies any past/current safety concerns around self-harm, other harm. However, in the last years he has had panic-like Sx, triggered by health concerns and fears of dying due to being obese. Medical and Physical Health Summary Additional Medical History not covered in history None reported. Sexual History concerns None reported. Physical exam in the last year? Yes Pain Screening Current pain? No Pain in the last few months? No Medications Is the patient compliant with medications? Not applicable Does the patient have Falcon Guardian in place? Not applicable Does the patient use complimentary health approaches? No Trauma/Abuse History History of trauma? No Questionnaires PHQ-9 Over the last 2 weeks, how often have you been bothered by any of the following problems? 1. Little interest or pleasure in doing things: not at all 2. Feeling down, depressed, or hopeless: not at all 3. Trouble falling or staying asleep, or sleeping too much: not at all 4. Feeling tired or having little energy: nearly every day 5. Poor appetite or overeating: nearly every day 6. Feeling bad about yourself - or that you are a failure or have let yourself or your family down: several days 7. Trouble concentrating on things, such as reading the newspaper or watching television: several days 8. Moving or speaking so slowly that other people could have noticed. Or the opposite - being so fidgety or restless that you have been moving around a lot more than usual: not at all 9. Thoughts that you would be better off or of hurting yourself in some way: not at all Total score: 8 Depression Screening Interpretation: Positive (From New PT pack. Completed on 10/17/24) Depression Screening Done: Yes Source: Developed by Drs. Sean Kowalksi, Natacha Brandt, Virgil Haqeu and colleagues, with an educational leydi from [employer]. Binge Eating Scale Group 1 A. I don't feel self-conscious about my wt. or body size when I'm with others. B. I feel concerned about how I look to others, but it normally does not make me fell disappointed with myself C. I do get self-conscious about my appearance and wt. which makes me feel disappointed in myself. D. I feel very self-conscious about my wt. and frequently I feel intense shame and disgust for myself. I try to avoid social contacts because of my self-consciousness. Response Group 1: C Group 2 A. I don't have any difficulty eating slowly in the proper manner. B. Although I seem to gobble down foods, I don't end up feeling stuffed because of eating to much. C. At times, I tend to eat quickly and then, I feel uncomfortably full afterwards. D. I have the habit of bolting down my food, without really chewing it. When this happens I usually feel uncomfortably stuffed because I've eaten to much. Response Group 2: C Group 3 A. I feel capable to control my eating urges when I want to. B. I feel like I have failed to control my eating more than the average person. C. I feel utterly helpless when it comes to feeling in control of my eating urges. D. Because I feel so helpless about controlling my eating I have become very desperate about trying to get control. Response Group 3: C Group 4 A. I don't have the habit of eating when I'm bored. B. I sometimes eat when I'm bored, but often I'm able to get busy and get my mind off food. C. I have a regular habit of eating when I'm bored, but occasionally, I can use some other activity to get my mind off eating. D. I have a strong habit of eating when I'm bored. Nothing seems to help me breath the habit. Response Group 4: D Group 5 A. I'm usually physically hungry when I eat something. B. Occasionally, I eat something on impulse even though I really am not hungry. C. I have the regular habit of eating foods, that I might not really enjoy, to satisfy a hungry feeling even though physically, I don't need the food. D. Although I'm not physically hungry, I get a hungry feeling in my mouth that only seems to be satisfied when I eat a food, like sandwich, that fills my mouth. Sometimes, when I eat the food to satisfy my mouth hunger, I then spit the food out so I won't gain weight. Response Group 5: C Group 6 A. I don't feel any guilt or self-hate after I overeat. B. After I overeat, occasionally I feel guilt or self-hate. C. Almost all the time I experience strong guilt or self-hate after I overeat. Response Group 6: C Group 7 A. I don't lose total control of my eating when dieting even after periods when I overeat. B. Sometimes when I eat a forbidden food on a diet, I feel like I blew it and eat even more. C. Frequently, I have the habit of saying to myself, I've blown it now, why not go all the way, when I overeat on a diet. When that happens I eat more. D. I have a regular habit of starting a strict diets for myself but I break the diets by going on an eating binge. My life seems to be either a feast or famine. Response Group 7: B Group 8 A. I rarely eat so much food that I feel uncomfortably stuffed afterwards. B. Usually about once a month, I each such a quantity of food, I end up feeling very stuffed. C. I have regular periods during the month when I eat large amounts of food, either at mealtime or at snacks. D. I eat so much food that I regularly feel quite uncomfortable after eating and sometimes a bit nauseous. Response Group 8: C Group 9 A. My level of calorie intake does not go up very high or go down very low on a regular basis. B. Sometimes after I overeat, I will try to reduce my caloric intake to almost nothing to compensate for the excess calories I've eaten. C. I have a regular habit of overeating during the night. It seems that my routine is not to be hungry in the morning but overeat in the evening. D. In my adult years, I have had week-long periods where I practically starve myself. This follows periods when I overeat. It seems I live a life of either feast or famine. Response Group 9: C Group 10 A. I usually am able to stop eating when I want to. I know when enough is enough. B. Every so often, I experience a compulsion to eat which I can't seem to control. C. Frequently, I experience strong urges to eat which I seem unable to control, but at other times I can control my eating urges. D. I feel incapable of controlling urges to eat. I have a fear of not being able to stop eating voluntarily. Response Group 10: D Group 11 A. I don't have any problem stopping eating when I feel full. B. I usually can stop eating when I feel full but occasionally overeat leaving me feeling uncomfortably stuffed. C. I have a problem stopping eating once I start and usually I feel uncomfortably stuffed after I eat a meal. D. Because I have a problem not being able to stop eating when I want, I sometimes have to induce vomiting to relieve my stuffed feeling. Response Group 11: C Group 12 A. I seem to eat just as much when I'm with others, Family social gatherings as when I'm by myself. B. Sometimes, when I'm with other persons, I don't eat as much as I want to eat because I'm self-conscious about my eating. C. Frequently, I eat only a small amount of food when others are present, because I'm very embarrassed about my eating. D. I feel so ashamed about overeating that I pick times to overeat when I know no one will see me. I feel like a closet eater. Response Group 12: A Group 13 A. I eat three meals a day with only an occasional between meal snack. B. I eat 3 meals a day, but I also normally snack between meals. C. When I am snacking heavily, I get in the habit of skipping regular meals. D. There are regular periods when I seem to be continually eating, with no planned meals. Response Group 13: D Group 14 A. I don't think much about trying to control unwanted eating urges. B. At least some of the time, I feel my thoughts are pre-occupied with trying to control my eating urges. C. I feel that frequently I spend much time thinking about how much I ate or about trying not to eat anymore. D. It seems to me that most of my waking hours are pre-occupied by thoughts about eating or not eating. I feel like I'm constantly struggling not to eat. Response Group 14: B Group 15 A. I don't think about food a great deal. B. I have strong craving for food but they last only for brief periods of time. C. I have days when I can't seem to think about anything else but food. D. Most of my days seem to be pre-occupied with thoughts about food. I feel like I live to eat. Response Group 15: B Group 16 A. I usually know whether or not I'm physically hungry. I take the right portion of food to satisfy me. B. Occasionally, I feel uncertain about knowing whether or not I'm physically hungry. A these times it's hard to know how much food I should take to satisfy me. C. Even though I might know how many calories I should eat, I don't have any idea what is a normal amount of food for me. Response Group 16: C Binge Eating Score: 30 Score less than 17 Minimal Risk Score between 18-26 Moderate Risk Score between 27-46 High Risk Assessment & Plan Assessment & Plan (1) ADHD: Code(s): F90.9 - Attention-deficit hyperactivity disorder, unspecified type (2) Anxiety: Code(s): F41.9 - Anxiety disorder, unspecified (3) Pre-bariatric surgery psychological evaluation: Code(s): Z71.89 - Other specified counseling Plan The patient is not cleared at this time, as the behavioral health assessment is still in progress. She is scheduled to return in 3 weeks to continue the evaluation and a new PHQ-9 will be completed at that time. Next Appointment: 12/17/2024 at 11am, telehealth Telehealth Telehealth Telehealth Platform: [facility] Location of provider rendering services: other Location of patient: address on file Patient Identification confirmed using: Name, : Yes Telehealth method: video Patient verbally consented to treatment: Yes Patient verbally consented to billing insurance company: Yes Patient informed of any privacy concerns related to visit: Yes Minutes spent on Phone/Video with Pt.: 50 Coding Level of Care Code New Pt Tele Psy Diag Eval (97125) Patient Type New Diagnoses ADHD F90.9 Anxiety F41.9 Pre-bariatric surgery psychological evaluation Z71.89 Time Spent (min) 50
--- OUTSIDE RECORDS SUMMARY | 2024-11-24 13:16 | XMS_ITS | Data Portability ---
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 using westcort cream qd-will increase to bid. Continue moisturize r Asthma 895817125 Just started the flovent-re cent visit Dr Vines-f/u in 07/22 Allergy 679251551 ? trou ble w/peanuts- will give epipen to have and refer to director of dietary Abnormal weight gain 119963260 Continues to do well-BMI now only @ 88%. Does have appt w/wgt management next month. Will f/u here prn. [id number] Jory Carlos MD [address] [address] 09/12/2013 13:11:48 09/12/2013 15:26:49 Well child 346477261 Adjustment disorder 48726786 Was seen at [facility] by Suni Lucas-saw X 1 year-wasn' t helpful-wi ll be starting w/a new therapist- Allergy 829469720 ? trou ble w/peanuts- has epipen still needs to see director of dietary Asthma 604548607 On flovent-rl ast visit Dr Vines 03/2013-nee ds f/u appt Attention deficit hyperactivity disorder, combined type 30532830 Was seen Psychiatry at [facility]-w as on stimulant- was on meds x 2-4 weeks-only tried 1 medication -mom to contact them again-if they won't see him I will need the records and will f/u here for eval. 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 Eczema 94574057 using westcort cream prn Continue moisturize r Seizure 23789566 Dr Light- no seizures in 2 years-disc harged him 2011 Childhood obesity 259282846 Large wgt gain-over last 6 months-BMI @ 93%-next appt w/wgt mangement in 3 months [id number] Leilani Casey MD [address] [address] 10/13/2013 18:03:54 10/13/2013 18:14:04 Acute pharyngitis 933405487 [id number] Jory Carlos MD [address] [address] 06/11/2014 10:16:18 06/11/2014 11:27:47 Acute pharyngitis 276327475 Concussion 67892855 [id number] Jory Carlos MD [address] [address] 4 09/11/2014 13:10:37 09/11/2014 16:50:17 Well child 539317021 will defer HPV for now Asthma 462927841 On flovent- sees Dr Mohinder-will start albuterol before exercise Allergy 098101997 ? trou ble w/peanuts- has epipen still needs to see director of dietary Childhood obesity 771939887 has appt w/weight management scheduled- will defer labs to them Adjustment disorder 67173058 sees therapist at [facility] Attention deficit hyperactivity disorder, combined type 95159298 Seen by Psychiatry at [facility]- has been tried on medication -has 504 plan Developmen grey academic disorder 5809413 Had testing thru [facility]-d id recommend IEP 10/2010--fan s 504 plan now for ADHD. Eczema 00038038 using westcort cream prn Continue moisturize r Seizure 50307698 Dr Light- no seizures in 3 years-disc harged him 2011 [id number] Chin Hi MD [address] [address] 09/22/2014 16:02:17 09/22/2014 16:45:07 Asthma 986405634 Viral syndrome 567083962 [id number] Jory Carlos MD [address] [address] 4 12/09/2014 16:00:04 12/09/2014 17:14:11 Impetigo bullosa 333502188 [id number] Jory Carlos MD [address] [address] 4 01/06/2015 15:28:43 01/06/2015 17:16:06 Injury of finger 39745550 [id number] Jory Carlos MD [address] [address] 4 03/19/2015 16:32:47 03/19/2015 17:44:26 Acute pharyngitis 848392540 Asthma 503911053 restart flovent [id number] Jory Carlos MD [address] [address] 4 04/28/2015 15:30:59 04/28/2015 17:29:31 Acute pharyngitis 437565746 J02.9 Knee pain 89561620 M25.5 62 Long[facility] ng intermitte nt knee pain [id number] Chin Hi MD [facility] [address] [address] 08/18/2015 14:50:17 08/18/2015 15:24:28 Acute pharyngitis 994851920 J02.9 Asthma 375252498 J45.90 9 Upper resp iratory infection 61272390 J06.9 [id number] Jory Carlos MD [address] [address] 4 09/14/2015 11:00:34 09/14/2015 12:55:47 Active or passive immunization 197377732 Z23 Well child 095337642 Z00 .129 Allergy 694864254 Z91.09 ? trouble w/peanuts- has epipen still needs to see director of dietary Asthma 356989762 J45.90 9 on flovent-se es Dr Vines-last visit ? 03/2014-mila nguyen make f/u appt Adjustment disorder 1722 6007 F43.20 stopped seeing therapist at [facility] approx 3 months ago--would n't talk w/therapis t. Behavior is better Attention deficit hyperactivity disorder, combined type 94120569 F90.2 Seen by Psychiatry at [facility]- in the past-has been tried on medication X 1- -has 504 plan Developmen grey academic disorder 5015111 F81.9 has 504 plan now for ADHD. Eczema 47823624 L30.9 using westcort cream prn Continue moisturize r & dove soap Knee pain 14168891 M25.5 67 saw ortho- not an issue now Childhood obesity 903371 003 Z68.54 saw wgt management x 1- -BMI stable @ 95%-will return to weight management -will get labs done there [id number] Sophia Han MD [address] [address] 09/24/2015 16:08:06 09/24/2015 17:05:22 Acute pharyngitis 574728444 J02.9 Streptococ amilcar sore throat 02676986 J02.0 [id number] Jory Carlos MD [address] [address] 4 11/17/2015 15:27:29 11/17/2015 15:44:17 Active or passive immunization 841243927 Z23 [id number] Jory Carlos MD [facility] [place] [facility] [address] [place] [address] 4 05/26/2016 15:45:21 05/26/2016 17:15:59 Asthma 087163557 J45.[address] Vines-? still needs to be on flovent ( last filled 07/2014 ) Low back pain 737715538 M54.5 pelvic rim pain posteriorl y w/running- x 2 weeks-? muscular- vs SI joint-will stretch before running-tr y ibuprofen- if still an issue in a few weeks will refer to sports medicine [id number] Jory Carlos MD [facility] [place] w [address] [place] [address] 4 06/07/2016 14:01:52 06/07/2016 17:19:36 Child attention deficit disorder 034647770 F90.9 [id number] Jory Carlos MD [address] [address] 4 07/27/2016 12:41:57 07/27/2016 14:35:53 Child attention deficit disorder 046496558 F90.9 currently on Adderall 10 XR daily-pare nt scales w/ small improvemen t-do not have social service worker which had the most impairment . Will get that now and increase to 20 mg. Will f/u by phone in 2 weeks. Can use only school days now. Watch weight since has had some loss.Get repeat scales before next visit.Mom to talk with school about testing for LD. Did have neuropsych testing in 2010 through [facility] that had some issues demonstrat ed. 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 w [address] [place] [address] 4 12/06/2016 10:21:34 12/06/2016 13:28:08 Child attention deficit disorder 506764830 F90.9 currently on Adderall 20 XR daily, teacher scales w/ much improvemen t except kosovan which is worse.Vick oleary also does not like that teacher. He does have some itrritabil ity after school and has some trouble getting homework done. 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 Will schedule dedicated ADD recheck after that. [id number] Jory Carlos MD [facility] [facility] [facility] [place] w [facility] [place] [address] 12/08/2016 11:26:17 12/08/2016 13:31:52 Active or passive immunization 999436190 Z23 Well child 363370718 Z00 .129 will test for LD next year. EXcellent weight control-al though BMI still > 85%-likely combinatio n ADD meds and healthy eating. Will be following at ADD rechecks. Child atte ntion deficit disorder 886429506 F90.9 JUst saw this week-ramiro skelton on Adderall 20 XR daily, teacher scales w/ much improvemen t except kosovan which is worse.Vick oleary also does not like that teacher. He does have some irritabili ty after school and has some trouble getting homework done. Will try Adderall 5 mg after school-can increase to 10 mg.Can continue to use only school days now. Will be off for the summer. Will meet at the end of the summer /beginning or the school year. Allergy 939907322 Z91.09 ? trouble w/peanuts- has epipen still needs to see director of dietary- appt 02/2017 Adjustment disorder 5442 1113 F43.20 stopped seeing therapist at [facility] 2015--woul dn't talk w/therapis t. Behavior is better Developmen grey academic disorder 3841714 F81.9 has 504 plan now for ADHD. Asthma 146484982 J45.[address] Vines 2013-only uses when exercise for a long time-will use 2 puffs before exercise -if doesn't work will f/u. MDI demonstrat ed and info sheet given. Eczema 82680202 L30.9 resolved [id number] Jory Carlos MD [facility] [facility] [place] [facility] [place] [address] 05/23/2017 10:14:21 05/23/2017 11:53:15 Child attention deficit disorder 837402351 F90.9 Currently on Adderall 20 XR school days. Teacher scales are great!!! and doing well in school w/ tutoring for kosovan. No trouble getting homework done now after school. Got crabby w/ Adderall 5 mg after school. Has 504 plan. Behavior is better. Weight increase likely 2nd to being off medication for the summer. Goals met. Will still pursue the eval for LD since needing outside help to be successful . Will remeet in 3 months. Needs to have something for lunch. Asthma 760815282 J45.90 9 will use before basketball Seborrheic dermatitis of scalp 649482311 L21.0 diffuse scaling-us e dandruff shampoo [id number] Jory Carlos MD [facility] [facility] w [address] [place] [address] 4 10/10/2017 10:25:58 10/10/2017 12:02:25 Child attention deficit disorder 156063987 F90.9 Currently on Adderall 20 XR school days. . Got crabby w/ Adderall 5 mg after school. Has 504 plan.Grade s are excellent! !! Goals met. Never pursued eval for LD since was doing so well in school. Will remeet in 2 months. at [facility]. Will meet after the summer after school has been in session for a few months & get teacher scales before then. [id number] [facility] [address] 01/03/2018 14:46:38 01/03/2018 17:50:07 Well child 829239196 Z00.129 Mom to get [employer] book Re: Teenagers Overweight in childhood 543078211 Z68.53 increase in BMI to 93%-discus sed healthy eating and exercise- goal will be to keep weight the same-will f/u at next ADD checK Disorder of vision 68534 002 H53.9 no glasses-mo m to check to see when he needs his next appt Child atte ntion deficit disorder 927440465 F90.9 Currently on Adderall 20 XR school [...] & get teacher scales before then. Allergy 798138419 Z91.09 saw director of dietary 04/24-has madeleine ds f/u 04/25 Adjustment disorder 1722 6007 F43.20 stopped seeing therapist at [facility] 2015--woul dn't talk w/therapis t. Behavior is better-see ms like typical teen Developmen grey academic disorder 3719068 F81.9 has 504 plan now for ADHD. Asthma 425448270 J45.90 9 will use before basketball -MDI demonstrat ed ( had poor technique) Eczema 90284829 L30.9 still an issue-west yannick prn Verruca vulgaris 8311666 3 B07.9 OTC meds 1st-f/u cryo prn [id number] Jory Carlos MD [facility] [facility] [facility] [place] [address] 03/20/2018 15:53:33 03/20/2018 17:29:15 Child attention deficit disorder 198198666 F90.9 Currently on Adderall 20 XR school [...] medication . Will continue melatonin for sleep. [id number] Jory Carlos MD [facility] [facility] w [facility] [place] [address] 06/21/2018 10:44:58 06/21/2018 12:25:12 Child attention deficit disorder 629985797 F90.9 Currently on Adderall 30 XR school days.Incre ased from 20XR this school year. Has 504 plan. Melatonin works well for sleep. Discussed limiting screen time 1.5 hrs before bedtime to help with sleep issues. . Teacher's scales are all good-excep t some impairment noted in social studies. Grades however are not good in kosovan or social studies. Bunny is not sure [...] in school last year- really struggles w/ kosovan and social studies this this year in 8th grade. Mom to pursue now. Did have eval 2011 that was suggestive of speech and language issues. Adjustment disorder 1722 6007 F43.20 Sees therapist at school-jo tom behavior- sees her weekly- just started- re: behavior at home Verruca vulgaris 5104695 3 B07.9 wart-cryo today. Info sheet given. [id number] MD DK George [facility] w [facility] [place] [address] 10/04/2018 16:11:54 10/04/2018 17:25:22 Child attention deficit disorder 587887827 F90.9 Currently on Adderall 30 XR school [...] in school last year- really struggles w/ kosovan Did have eval 2011 that was suggestive of speech and language issues. Mom still needs to pursue eval. F/u at [facility] in 3 months. [id number] MD DK George [employer] [place] [address] 12/06/2018 10:42:51 12/06/2018 14:55:14 Allergy 359313218 Z91.09 Near syncope 921532650 R 55 had an episode near syncope- will work on breakfast and a snack- work on hydration. Does NOT sound like a seizure. No need for EEG at this point [id number] MD DK George [facility] [address] [facility] [place] [address] 03/07/2019 08:23:32 03/07/2019 12:36:51 Well child 988660657 Z00.129 Can stop fluoride now. Will try OTC wart removal for wart on elbow. 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 Will hold off on labs unless unable to decrease weight. Eventual goal is is low 170s. Child atte ntion deficit disorder 941507068 F90.9 Has been off medication during the [...] F/u in 2 months for recheck Asthma 876270288 J45.[address] Vines- started flovent and singulair- f/u w/ him in 2-3 months Allergy to peanut 645919 09 Z91.010 peanut allergy- epipens . Needs f/u w/ director of dietary Eczema 09393660 L30.9 has been doing well Adjustment disorder 1722 6007 F43.20 no longer seeing therapist since insurance doesn't cover [facility]- stopped seeing her at the end of the school year. Seems to be doing ok. Disorder of vision 34283 002 H53.9 needs appt w/ Dr antoine Anxiety 03483239 F41.9 improved [id number] Jory Carlos MD [facility] [facility] [facility] [place] [facility] [place] [address] 05/09/2019 11:05:07 05/09/2019 12:18:53 Child attention deficit disorder 865564069 F90.9 On Adderall 30 XR taking school days- grades faily good- kosovan is a bit of a struggle- just had retesting done in school- no LD found but weakness in verbal comp. Will continue 504 plan.Bradley nue melatonin for sleep. f/u in 4 months- sooner if any change.Matt buckley get teacher scales when possible but before next next visit. Complainin g of - postnasal drip 335465011 R09.82 PND past 3 weeks- will try flonase- if not better in 1 week will treat for sinusitis w/ amox Increased body mass index 11177717 Z68.41 excellent weight control- weight down from 192-> 183. Will aim for BMI of 25 ( approx 173 lbs ) [id number] Jory Carlos MD [facility] [facility] [facility] [place] [address] [facility] [place] [address] 04/08/2020 14:31:27 04/08/2020 16:59:26 Child attention deficit disorder 559400726 F90.9 Last year was on Adderall 30 XR taken school days- Bunny felt like that was an OK dose- Has been off medication this year so far- needs to restart it.Will continue 504 plan.Since online , teacher scales will not be helpful. F/u 2 months. Allergy to peanut 506856 09 Z91.010 peanut allergy- ? epipens - will check. . Needs f/u w/ director of dietary ? last visit 2017 Developmen grey academic disorder 0241405 F81.9 has 504 plan now for ADHD. 2019 had retesting done in school- no LD found but weakness in verbal comp. Asthma 210700324 J45.[address] Vines- 04/26- on flovent and singulair- will call to see if he needs a f/u appt Adjustment disorder 1722 6007 F43.20 no longer seeing therapist . Seems to be doing ok. Eczema 97588488 L30.9 has been doing well- not active for over a year Disorder of vision 72649 002 H53.9 needs appt w/ Dr antoine Well child 281471872 Z00 .129 Disc ADILSON. Continue melatonin for sleep. BP high today ( nervos re : immunizati ons. Will recheck at ADD recheck . Meningitis B vaccine before college. Active or passive immunization 281557254 Z23 Childhood obesity 789541 003 Z68.54 BMI continues to increase and [...] management clinic. Exercises education, guidance, and counseling 972455649 Z71.82 Diet education 84407454 Z71.3 Verruca vulgaris 9273558 3 B07.9 will do cryo when returns for ADD recheck [id number] Jory Carlos MD [address] [address] 06/04/2020 10:45:23 06/04/2020 17:37:13 SARS-CoV-2 916764807 U07.1 Viral syndrome 188481991 B34.9 [id number] Jory Carlos MD [address] [address] 06/25/2020 14:22:44 06/25/2020 15:53:15 Child attention deficit disorder 791410676 F90.9 Last year was on Adderall 30 XR taken school days- Bunny felt like that was an OK dose. Restarted Adderall after [facility] a few months ago.504 plan.Since online , teacher scales will not be helpful.Gr ades aren't good but Bunny thinks that is because school is onlineCont inue melatonin school nights.F/u 3 months. Verruca vulgaris 3041628 3 B07.9 Nothing obvious today to cryo- will observe Excessive weight gain 22 3758745 R63.5 BMI >> 99 %- large weight gain over the past Tiny-will refer to weight management . Will limit dairy to 4 servings. Get a portion plate. Go to Choosemypl ate.gov. Goal is 180 lbs. 2200- 2400 cals a day. Will continue daily exercise. Will recheck in 3 month at next visit. Increased blood pressure 24046602 R03.0 Today BP was excellent. [id number] Phong Swenson MD [address] [address] 09/27/2020 15:40:49 09/27/2020 15:55:48 Paronychia of toe 379116213 L03.039 [id number] Jory Carlos MD [facility] [employer] [facility] [facility] [place] [address] [address] 02/23/2021 08:03:26 02/23/2021 14:21:45 Child attention deficit disorder 898253222 F90.9 ON adderall 30 XR school days- [...] nights.F/u 3 months. Increased body mass index 29086174 Z68.41 Almost 50 lb weight gain over [...] him here. Will repeat BMI labs at [facility] in a few months [id number] Phong Swenson MD [facility] [facility] [facility] [facility] [address] [address] 03/07/2021 08:31:35 03/08/2021 14:04:40 Tuberculosis screening 497684584 Z11.1 [id number] Jory Carlos MD [address] [address] 4 09/29/2021 13:05:18 09/29/2021 17:26:53 History of SARS-CoV-2 0614287419 18817864 Z86.16 Had Covid 2 months ago- back to activity- never had cardiac recheck Anxiety 64260808 F41.9 no longer an issue Child atte ntion deficit disorder 880132154 F90.9 Had been on adderall 30 XR [...] let us know Developmen grey academic disorder 3791170 F81.9 Has 504 plan now for ADHD. 2019 had retesting done in school- no LD found but weakness in verbal comp. Allergy to peanut 367502 09 Z91.010 Peanut allergy- epipens - Needs f/u w/ director of dietary ? last visit 2017 Asthma 652333034 J45.[address] Vines- 04/26- was on flovent and singulair- stopped medication a while ago. Has not needed to use albuterol . Does have it at home. If starts to need it frequently will f/u. Eczema 53425964 L30.9 Not an issue for a while Adjustment disorder 1722 6007 F43.20 no longer seeing therapist . Seems to be doing ok. Disorder of vision 64448 002 H53.9 needs appt w/ opthal- it has been a long time since his last visit- used to wear glasses Verruca vulgaris [id number] 3 B07.9 resolved Childhood obesity 059882 003 Z68.54 BMI is 42.2. Bunny has gained 28 lbs from his last WCC but has lost 4 lbs over the past 7 months. Will continue to work on healthy eating- watch snacks and portions- needs to expand diet to eat more veggies.Ev entual goal is is low 170s.Will recheck weight in 3 months.Jamison ortizies for bariatric surgery since BMI is > 40. May need referral to weight management clinic-if at his recheck weight increases. Last checked BMI labs 2019- needs repeat ( didn't check LFTs ) Hypertriglyceridemia 302 [id number] E78.1 last trig 260- will repeat fasting Active or passive immunization [id number] Z23 Active immunization 0737 9002 Z23 Adult heal th examination 405217072 Z00.00 Disc ADILSON. Continue melatonin for sleep. [id number] Leilani Casey MD [facility] Anitha hogan [address] [place] [address] [place] [phone] 02/08/2022 13:31:01 02/08/2022 14:45:51 Impetigo bullosa [id number] L01.03 [id number] Jory Carlos MD [facility] Anitha [address] [phone] 05/12/2022 16:34:16 05/12/2022 19:59:36 Acute pharyngitis [id number] J02.9 [id number] Leilani Casey MD [facility] [address] [phone] 01/16/2024 16:18:16 01/16/2024 17:11:45 Acute pharyngitis [id number] J02.9 Asthma 921059173 J45.90 [id number] ADIEL CASTRO MD [facility] Anitha [address] [phone] 03/04/2024 14:07:27 03/05/2024 07:29:27 Adult health examination 086263766 Z00.00 Diet education 17901401 Z71.3 Exercises education, guidance, and counseling 225934253 Z71.82 Screening for disorder 914570368 Z13.31 Abnormal weight gain 161 909268 R63.5 Morbid obesity 366958623 E66.01 Health Concerns Section Related Observation LastModified by Organization Detai ls LastModified Time None Recorded Concern Status LastModified by Organization Details LastModified Time None Recorded Advance Directives Directive None Recorded Payers Encounter Date Sequence Insurance Name Policy Number Policy Guerrero Covered Member ID Guerrero Member ID Guarantor Name 09/29/2021 2 [place] [facility] Bunny Russo [id number] Rosalie Koroma 02/08/2022 2 [place] Bunny Russo [id number] Rosalie Koroma 05/12/2022 2 [place] [facility] Bunny Koroma Russo [id number] Rosalie Koroma 01/16/2024 2 [place] Bunny Koroma Russo [id number] Rosalie Koroma 03/04/2024 2 [place] [facility] Bunny Russo [id number] Rosalie Koroma Notes Date Note Type Note [...] Meds taken. No sick contacts. Returned from [employer] 3 days ago. Has just started using antibacterial soap. Has been swimming in ocean. Lesions started BUEs - R antecub fossa area and L axilla but not where hair is present, now also on L lower abd/L popliteal fossae/R cheek and R eyebrow Leilani Casey MD [address] [place] [address], , [facility] 02/08/2022 14:06:26 05/12/2022 text/html RS [...] yesterday.Brother w/ similar sx. Jory Carlos MD [address] [place] [address], , [facility] 05/12/2022 19:46:33 01/16/2024 text/html RS Sick Visit Narrative HistoryReported bypatient.Notes:Pt is here for a ST x 4 days.Dry cough, Congestion x 4 days.Intermittent SOB noticed 2 days ago. Hasn't been using inhaler.AfebrileNo sx of N/V/D, No FAN, No ear pain, No body aches, Afebrile.OTC meds Taken.Girlfriend dx w/ PNA 2 wks ago.Needs new Rx for inhaler. Leilani Casey MD [address] [place] [address], [phone], [facility] 01/16/2024 16:56:22
== END 2024-11-24 14:05 | disposition home or self-care (01) ==
LOC: HO.HBST 13:12
PROVIDERS: Visit Provider Counselor Mental Health
DX: F90.9 Attention-deficit hyperactivity disorder, unspecified type (principal); F41.9 Anxiety disorder, unspecified; Z71.89 Other specified counseling
CPT/HCPCS: 90791

== ENCOUNTER → 2024-11-24 13:12 | Outpatient (BNVA) | payer OTHER, SELFPAY | PROVIDERS: Visit Provider Counselor Mental Health ==

== ENCOUNTER 2024-12-17 11:17 | Outpatient (AMB) | payer OTHER, SELFPAY ==
--- NOTE | 2024-12-17 11:10 | MHC.WMTHER ---
Intake Intake Visit Reasons: VIDEO F/U Allergies peanut Allergy (Mild, Verified 10/24/24 10:09) [facility] Medical History (Updated 10/24/24 @ 10:11 by Rufus Still MD) Anxiety Morbid obesity Blocked tear duct, congenital Epilepsy ADHD Asthma Behavioral Health Assessment Weight Management Therapy Therapy Notes Details The patient is a 19-year-old male presenting for a second behavioral health visit as part of the preoperative assessment for the surgical weight loss program. He was referred by his mother, who has previously undergone weight loss surgery. Bunny reported difficulty adhering to his prescribed meal plan, noting that he frequently skips shakes during the day and consumes snacks, which results in increased hunger later in the day. Despite these setbacks, he continues to engage in physical activity twice daily. He expressed frustration over not losing weight in recent weeks; he understands and is aware that this is due to not following the plan. During the session, the patient was challenged on his current level of commitment and the lifestyle changes required for long-term success. It was noted that his current behaviors suggest he may not yet be fully prepared for surgery. He acknowledged these concerns and agreed to re-engage with the meal plan. Mindfulness techniques and decision-making strategies were introduced to support improved regulation of snacking behaviors. Psychoeducation was provided to help him develop a more rational approach to managing unhealthy eating patterns, including snacking and episodes of binge eating. Today, the behavioral health assessment was completed. However, due to ongoing difficulties adhering to the pre-operative guidelines set by the surgical team, the patient is not yet cleared for surgery. He will continue with follow-up appointments to address behavioral modification and enhance readiness for weight-loss surgery. It was reinforced that surgery is not a substitute for sustainable lifestyle changes, and continued effort in this area will be essential for long-term success. Presenting Concerns Referral Source P-Provider. Reason for referral Completion of behavioral health assessment as part of process for weight-loss surgery. Precipitating Event Obesity. Living Situation Current Living Situation Own and Relative's/Guardian's Cliff At risk of losing current housing? No Satisfied with current living situation? Yes Comments PT lives with his parents and 3 siblings. Food/Weight/Diet Expectations of change PT started the program at 333 lbs at the office scale, however he reported to be at 339Lbs at his home scale And most recent weight as of 11/18/2024 was 334 lbs. using his home scale. Recent weight on 12/14/24: 333Lbs The initial goal is to lose 10% of your weight before surgery, which is about 33lbs. Ultimate weight goal: 300lbs before surgery. PT is implementing the following: Current meal plan: Using the normal plan. He's doing a combination of shakes and 1 meal at day (dinner). Currently not following it, he has been snacking at work. Exercise plan: stationary bike. 150cal 2 times at day, trying to do 5-6 days at week. Scale: Yes Communication w/ the Dr: yes on Tuesdays. History/Relationship with food PT reports he has issues trying new things, since age 1 he sticks to the same things do doesn't east as healthy. He doesn't eat veggies. Example of meals before starting the program: Breakfast: Skip Lunch: fast food/take out from [employer] or [employer]. Dinner: whatever his mom cooks - chicken dianne pasta, rice with pork, it varies daily, he wouldn't eat salads. Snacks: sweets, cereal, cakes, strawberry rolls, at least 3-4 at day. Drinks/Liquids: coffee: none. Soda: 1 can 3-4 times at week. Juice: 1 cup couple days at week. Milk: 1% half a gallon at day. Energy drinks: none. Water: over a gallon at day. History/Relationship with weight In the last 10 years, the patient's Lowest weight was 180 lbs. (before COVID) and highest 350Lbs around June/2024. History/Relationship with dieting Self-diets. Portion control. Choosing healthy options. Binge Eating Do you frequently eat large amounts of food in short periods of time, not feeling physically hungry? Yes Do you feel out of control when you eat a large amount of food in a short period of time? No Do you eat large amounts of food rapidly and typically alone? No Night Eating Do you wake up at least once during the night to eat? No If you wake up in the night, do you find that it is necessary to eat something in order to fall back asleep? No Do you have little or no appetite in the morning and feel very hungry in the evening, often overeating between dinner and when you go to bed? Yes Social History Family history and relationship PT has been in a relationship for the past 2 years, he currently lives with his parents and 3 siblings, he's the oldest. Pt reports he ahs good family relationships. 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 Developmental history and status Diagnosed with ADHD at age 4, had a 504 plan through school. Social support Parents, girlfriends, best friend. Community support Car club. Yazidism/Spirituality Baptism, goes to yazidi every Sunday. Cultural/Ethnic information Mixed, his mom is white, and his dad is . Legal Involvement and History Current or historical involvement with the legal system? None reported. Education Highest grade completed Hs. Some college. Preferred learning style Learn by doing and Visual Currently enrolled in educational program? No Interested in further educational program? 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 ) Wants help to find employment? No Meaningful activities cars, playing Xbox, outdoor activites. Financial Situation Describe current financial situation Comfortable Financial assistance? None Service Service? No Mental Health and Addiction Treatment Current/Past substance abuse? No Comments Alcohol: Social. 1 beer. Cigarettes/Tobacco: None. Cannabis/Edibles: None. Current/Past addictive behavior concerns? No Psychiatric history Patient reports engaging in counseling briefly around the age of 6 due to family-related issues. He was diagnosed with ADHD at approximately age 4 and was prescribed Adderall during high school; however, he discontinued use by 10th grade. He denies any mental health treatment or counseling in adulthood, as well as any history of psychiatric hospitalizations or mental health crises. He also denies any past or current thoughts or behaviors related to self-harm or harm to others. In recent years, he has experienced intermittent panic-like symptoms, primarily triggered by health-related anxiety and fears of mortality, which he attributes to concerns about obesity. Medical and Physical Health Summary Additional Medical History not covered in history None reported. Sexual History concerns None reported. Physical exam in the last year? Yes Pain Screening Current pain? No Pain in the last few months? No Medications Is the patient compliant with medications? Not applicable Does the patient have Falcon Guardian in place? Not applicable Does the patient use complimentary health approaches? No Trauma/Abuse History History of trauma? No Questionnaires PHQ-9 Over the last 2 weeks, how often have you been bothered by any of the following problems? 1. Little interest or pleasure in doing things: not at all 2. Feeling down, depressed, or hopeless: not at all 3. Trouble falling or staying asleep, or sleeping too much: not at all 4. Feeling tired or having little energy: not at all 5. Poor appetite or overeating: more than half the days (over snacking. ) 6. Feeling bad about yourself - or that you are a failure or have let yourself or your family down: several days (due to weight. ) 7. Trouble concentrating on things, such as reading the newspaper or watching television: not at all 8. Moving or speaking so slowly that other people could have noticed. Or the opposite - being so fidgety or restless that you have been moving around a lot more than usual: not at all 9. Thoughts that you would be better off or of hurting yourself in some way: not at all Total score: 3 Depression Screening Interpretation: Negative Depression Screening Done: Yes 83153 - PHQ-9 Billing: Yes Source: Developed by Drs. Sean Kowalski, Natacha Brandt, Virgil Haque and colleagues, with an educational leydi from [employer]. Assessment & Plan Assessment & Plan (1) ADHD: Code(s): F90.9 - Attention-deficit hyperactivity disorder, unspecified type (2) Anxiety: Code(s): F41.9 - Anxiety disorder, unspecified (3) Pre-bariatric surgery psychological evaluation: Code(s): Z71.89 - Other specified counseling Plan To support gradual behavior change, the patient agreed to implement small, manageable modifications?such as trying different protein bars and incorporating a greater variety of foods at dinner to reduce meal fatigue?while continuing to follow the portion guidelines provided by Dr. R. He was also encouraged to set timers for his shakes, particularly on days when his schedule varies and he is more likely to skip meals. Additionally, he was advised to prepare shakes in advance and bring them to work, even if doing so feels uncomfortable, in order to maintain consistency with the plan. As he will be traveling soon?and has noted that previous getaways have been challenging in terms of adhering to the program?the upcoming trip was framed as an opportunity to practice these new strategies and maintain accountability to his goals. Although there are no significant mental health concerns or risk factors preventing the patient from proceeding with surgery, he is not yet cleared due to ongoing challenges with eating behaviors. He will return in approximately 2-4 weeks for continued support focused on habit-building and mindset preparation. Next appointment: January 14, 2025, at 12:00 PM (Video Visit). Telehealth Telehealth Telehealth Platform: [facility] Location of provider rendering services: other Location of patient: address on file Patient Identification confirmed using: Name, : Yes Telehealth method: video Patient verbally consented to treatment: Yes Patient verbally consented to billing insurance company: Yes Patient informed of any privacy concerns related to visit: Yes Minutes spent on Phone/Video with Pt.: 55 Coding Level of Care Code Established Pt Tele Psytx >53 mins (99247) Patient Type Established Diagnoses ADHD F90.9 Anxiety F41.9 Pre-bariatric surgery psychological evaluation Z71.89 Additional Codes PHQ-9 - 60444 - PHQ-9 Billing: Yes ([id number]) Time Spent (min) 55
--- OUTSIDE RECORDS SUMMARY | 2024-12-17 12:57 | XMS_ITS | Data Portability ---
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 disorder 35868340 Was seen at [facility] by Suni Lucas-saw X 1 year-wasn' t helpful-wi ll be starting w/a new therapist- Allergy 499186366 ? trou ble w/peanuts- has epipen still needs to see sericulturist Asthma 429916854 On flovent-rl ast visit Dr Vines 03/2013-nee ds f/u appt Attention deficit hyperactivity disorder, combined type 03438216 Was seen Psychiatry at [facility]-w as on stimulant- was on meds x 2-4 weeks-only tried 1 medication -mom to contact them again-if they won't see him I will need the records and will f/u here for eval. 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 Eczema 20189869 using westcort cream prn Continue moisturize r Seizure 57554075 Dr Light- no seizures in 2 years-disc harged him 2011 Childhood obesity 139119684 Large wgt gain-over last 6 months-BMI @ 93%-next appt w/wgt mangement in 3 months [id number] Leilani Casey MD [address] [address] 4 10/13/2013 18:03:54 10/13/2013 18:14:04 Acute pharyngitis 709851439 [id number] Jory Carlos MD [address] [address] 4 06/11/2014 10:16:18 06/11/2014 11:27:47 Acute pharyngitis 122827694 Concussion 60495255 [id number] Jory Carlos MD [address] [address] 4 09/11/2014 13:10:37 09/11/2014 16:50:17 Well child 037302964 will defer HPV for now Asthma 536470200 On flovent- sees Dr Mohinder-will start albuterol before exercise Allergy 885007675 ? trou ble w/peanuts- has epipen still needs to see sericulturist Childhood obesity 551005588 has appt w/weight management scheduled- will defer labs to them Adjustment disorder 12510599 sees therapist at [facility] Attention deficit hyperactivity disorder, combined type 91806382 Seen by Psychiatry at [facility]- has been tried on medication -has 504 plan Developmen grey academic disorder 2170747 Had testing thru [facility]-d id recommend IEP 10/2010--fan s 504 plan now for ADHD. Eczema 96388748 using westcort cream prn Continue moisturize r Seizure 31005747 Dr Light- no seizures in 3 years-disc harged him 2011 [id number] Chin Hi MD [address] [address] 4 09/22/2014 16:02:17 09/22/2014 16:45:07 Asthma 692056202 Viral syndrome 463508106 [id number] Jory Carlos MD [address] [address] 4 12/09/2014 16:00:04 12/09/2014 17:14:11 Impetigo bullosa 132328657 [id number] Jory Carlos MD [address] [address] 4 01/06/2015 15:28:43 01/06/2015 17:16:06 Injury of finger 51590643 [id number] Jory Carlos MD [address] [address] 4 03/19/2015 16:32:47 03/19/2015 17:44:26 Acute pharyngitis 858122094 Asthma 700024526 restart flovent [id number] Jory Carlos MD [address] [address] 4 04/28/2015 15:30:59 04/28/2015 17:29:31 Acute pharyngitis 118331114 J02.9 Knee pain 32754559 M25.5 62 Longstandi ng intermitte nt knee pain [id number] Chin Hi MD [facility] [address] [address] 4 08/18/2015 14:50:17 08/18/2015 15:24:28 Acute pharyngitis 497384492 J02.9 Asthma 852225206 J45.90 9 Upper resp iratory infection 26145940 J06.9 [id number] Jory Carlos MD [address] [address] 4 09/14/2015 11:00:34 09/14/2015 12:55:47 Active or passive immunization 874150691 Z23 Well child 175699198 Z00 .129 Allergy 415851970 Z91.09 ? trouble w/peanuts- has epipen still needs to see sericulturist Asthma 985238359 J45.90 9 on flovent-se es Dr Vines-last visit ? 03/2014-mila nguyen make f/u appt Adjustment disorder 1722 6007 F43.20 stopped seeing therapist at [facility] approx 3 months ago--would n't talk w/therapis t. Behavior is better Attention deficit hyperactivity disorder, combined type 70148697 F90.2 Seen by Psychiatry at [facility]- in the past-has been tried on medication X 1- -has 504 plan Developmen grey academic disorder 6470320 F81.9 has 504 plan now for ADHD. Eczema 65461699 L30.9 using westcort cream prn Continue moisturize r & dove soap Knee pain 70157271 M25.5 67 saw ortho- not an issue now Childhood obesity 038308 003 Z68.54 saw wgt management x 1- -BMI stable @ 95%-will return to weight management -will get labs done there [id number] Sophia Han MD [address] [address] 4 09/24/2015 16:08:06 09/24/2015 17:05:22 Acute pharyngitis 621727779 J02.9 Streptococ amilcar sore throat 74687484 J02.0 [id number] Jory Carlos MD [address] [address] 4 11/17/2015 15:27:29 11/17/2015 15:44:17 Active or passive immunization 963686182 Z23 [id number] Jory Carlos MD [facility] [place] [facility] [address] [place] [address] 4 05/26/2016 15:45:21 05/26/2016 17:15:59 Asthma 262411539 J45.[address] Vines-? still needs to be on flovent ( last filled 07/2014 ) Low back pain 110528381 M54.5 pelvic rim pain posteriorl y w/running- x 2 weeks-? muscular- vs SI joint-will stretch before running-tr y ibuprofen- if still an issue in a few weeks will refer to sports medicine [id number] Jory Carlos MD [facility] [place] w [address] [place] [address] 4 06/07/2016 14:01:52 06/07/2016 17:19:36 Child attention deficit disorder 850779373 F90.9 [id number] Jory Carlos MD [address] [address] 4 07/27/2016 12:41:57 07/27/2016 14:35:53 Child attention deficit disorder 743650462 F90.9 currently on Adderall 10 XR daily-pare nt scales w/ small improvemen t-do not have social media specialist which had the most impairment . Will get that now and increase to 20 mg. Will f/u by phone in 2 weeks. Can use only school days now. Watch weight since has had some loss.Get repeat scales before next visit.Mom to talk with school about testing for LD. Did have neuropsych testing in 2010 through [facility] that had some issues demonstrat ed. weather teacher shows problems with written and expressive language that can signal LD.f/u 2 months [id number] Jory Carlos MD [facility] w [address] [place] [address] 4 12/06/2016 10:21:34 12/06/2016 13:28:08 Child attention deficit disorder 608427362 F90.9 currently on Adderall 20 XR daily, teacher scales w/ much improvemen t except malian which is worse.Vick oleary also does not like that teacher. He does have some itrritabil ity after school and has some trouble getting homework done. Will try Adderall 5 mg after school-can increase to 10 mg.Can continue to use only school days now.Mom to talk with school about testing for LD again Did have neuropsych testing in 2010 through [facility] that had some issues demonstrat ed weather teacher shows problems with written and expressive language that can signal LD.f/u at [facility]-needs to schedule. Will schedule dedicated ADD recheck after that. [id number] Jory Carlos MD [facility] [place] [facility] [place] [address] 4 12/08/2016 11:26:17 12/08/2016 13:31:52 Active or passive immunization 575304705 Z23 Well child 654573993 Z00 .129 will test for LD next year. EXcellent weight control-al though BMI still > 85%-likely combinatio n ADD meds and healthy eating. Will be following at ADD rechecks. Child atte ntion deficit disorder 572852840 F90.9 JUst saw this week-ramiro skelton on Adderall 20 XR daily, teacher scales w/ much improvemen t except malian which is worse.Vick oleary also does not like that teacher. He does have some irritabili ty after school and has some trouble getting homework done. Will try Adderall 5 mg after school-can increase to 10 mg.Can continue to use only school days now. Will be off for the summer. Will meet at the end of the summer /beginning or the school year. Allergy 299968324 Z91.09 ? trouble w/peanuts- has epipen still needs to see sericulturist- appt 02/2017 Adjustment disorder 7792 6166 F43.20 stopped seeing therapist at [facility] 2015--woul dn't talk w/therapis t. Behavior is better Developmen grey academic disorder 1977373 F81.9 has 504 plan now for ADHD. Asthma 747064171 J45.[address] Vines 2013-only uses when exercise for a long time-will use 2 puffs before exercise -if doesn't work will f/u. MDI demonstrat ed and info sheet given. Eczema 69777424 L30.9 resolved [id number] Jory Carlos MD [facility]a [address] [facility] [place] [address] 05/23/2017 10:14:21 05/23/2017 11:53:15 Child attention deficit disorder 533275175 F90.9 Currently on Adderall 20 XR school days. Teacher scales are great!!! and doing well in school w/ tutoring for malian. No trouble getting homework done now after school. Got crabby w/ Adderall 5 mg after school. Has 504 plan. Behavior is better. Weight increase likely 2nd to being off medication for the summer. Goals met. Will still pursue the eval for LD since needing outside help to be successful . Will remeet in 3 months. Needs to have something for lunch. Asthma 305183297 J45.90 9 will use before basketball Seborrheic dermatitis of scalp 036194208 L21.0 diffuse scaling-us e dandruff shampoo [id number] Jory Carlos MD [facility] [employer] w [address] [place] [address] 4 10/10/2017 10:25:58 10/10/2017 12:02:25 Child attention deficit disorder 176401367 F90.9 Currently on Adderall 20 XR school days. . Got crabby w/ Adderall 5 mg after school. Has 504 plan.Grade s are excellent! !! Goals met. Never pursued eval for LD since was doing so well in school. Will remeet in 2 months. at [facility]. Will meet after the summer after school has been in session for a few months & get teacher scales before then. [id number] J[facility] [address] 01/03/2018 14:46:38 01/03/2018 17:50:07 Well child 660239352 Z00.129 Mom to get [employer] book Re: Teenagers Overweight in childhood 951314908 Z68.53 increase in BMI to 93%-discus sed healthy eating and exercise- goal will be to keep weight the same-will f/u at next ADD checK Disorder of vision 76211 002 H53.9 no glasses-mo m to check to see when he needs his next appt Child atte ntion deficit disorder 035707242 F90.9 Currently on Adderall 20 XR school [...] & get teacher scales before then. Allergy 887576379 Z91.09 saw sericulturist 04/24-has madeleine ds f/u 04/25 Adjustment disorder 1722 6007 F43.20 stopped seeing therapist at [facility] 2015--woul dn't talk w/therapis t. Behavior is better-see ms like typical teen Developmen grey academic disorder 2006359 F81.9 has 504 plan now for ADHD. Asthma 906911362 J45.90 9 will use before basketball -MDI demonstrat ed ( had poor technique) Eczema 95252330 L30.9 still an issue-west yannick prn Verruca vulgaris 9101841 3 B07.9 OTC meds 1st-f/u cryo prn [id number] Jory Carlos MD [facility] [place] [address] 03/20/2018 15:53:33 03/20/2018 17:29:15 Child attention deficit disorder 012284178 F90.9 Currently on Adderall 20 XR school [...] medication . Will continue melatonin for sleep. [id number] Jory Carlos MD [facility] [employer] [address] 06/21/2018 10:44:58 06/21/2018 12:25:12 Child attention deficit disorder 465282940 F90.9 Currently on Adderall 30 XR school days.Incre ased from 20XR this school year. Has 504 plan. Melatonin works well for sleep. Discussed limiting screen time 1.5 hrs before bedtime to help with sleep issues. . Teacher's scales are all good-excep t some impairment noted in social studies. Grades however are not good in malian or social studies. Bunny is not sure [...] in school last year- really struggles w/ malian and social studies this this year in 8th grade. Mom to pursue now. Did have eval 2011 that was suggestive of speech and language issues. Adjustment disorder 1722 6007 F43.20 Sees therapist at school-jo tom behavior- sees her weekly- just started- re: behavior at home Verruca vulgaris 4717265 3 B07.9 wart-cryo today. Info sheet given. [id number] MD DK George [employer] [place] [facility] [place] [address] 10/04/2018 16:11:54 10/04/2018 17:25:22 Child attention deficit disorder 812036798 F90.9 Currently on Adderall 30 XR school [...] in school last year- really struggles w/ malian Did have eval 2011 that was suggestive of speech and language issues. Mom still needs to pursue eval. F/u at [facility] in 3 months. [id number] MD DK [facility] [place] [address] 4 12/06/2018 10:42:51 12/06/2018 14:55:14 Allergy 127973447 Z91.09 Near syncope 183080327 R 55 had an episode near syncope- will work on breakfast and a snack- work on hydration. Does NOT sound like a seizure. No need for EEG at this point [id number] MD [facility] [address] [facility] [place] [place] [address] 03/07/2019 08:23:32 03/07/2019 12:36:51 Well child 757043249 Z00.129 Can stop fluoride now. Will try OTC wart removal for wart on elbow. 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 Will hold off on labs unless unable to decrease weight. Eventual goal is is low 170s. Child atte ntion deficit disorder 828510460 F90.9 Has been off medication during the [...] F/u in 2 months for recheck Asthma 492472357 J45.[address] Vines- started flovent and singulair- f/u w/ him in 2-3 months Allergy to peanut 350069 09 Z91.010 peanut allergy- epipens . Needs f/u w/ sericulturist Eczema 05369747 L30.9 has been doing well Adjustment disorder 1722 6007 F43.20 no longer seeing therapist since insurance doesn't cover [facility]- stopped seeing her at the end of the school year. Seems to be doing ok. Disorder of vision 49618 002 H53.9 needs appt w/ Dr antoine Anxiety 09010091 F41.9 improved [id number] Jory Carlos MD [facility] [place] [facility] [place] [address] 05/09/2019 11:05:07 05/09/2019 12:18:53 Child attention deficit disorder 471445300 F90.9 On Adderall 30 XR taking school days- grades faily good- malian is a bit of a struggle- just had retesting done in school- no LD found but weakness in verbal comp. Will continue 504 plan.Bradley nue melatonin for sleep. f/u in 4 months- sooner if any change.Matt buckley get teacher scales when possible but before next next visit. Complainin g of - postnasal drip 945110490 R09.82 PND past 3 weeks- will try flonase- if not better in 1 week will treat for sinusitis w/ amox Increased body mass index 15217387 Z68.41 excellent weight control- weight down from 192-> 183. Will aim for BMI of 25 ( approx 173 lbs ) [id number] Jory Carlos MD [facility] Anitha [address] [facility] [place] [address] 4 04/08/2020 14:31:27 04/08/2020 16:59:26 Child attention deficit disorder 571579177 F90.9 Last year was on Adderall 30 XR taken school days- Bunny felt like that was an OK dose- Has been off medication this year so far- needs to restart it.Will continue 504 plan.Since online , teacher scales will not be helpful. F/u 2 months. Allergy to peanut 084220 09 Z91.010 peanut allergy- ? epipens - will check. . Needs f/u w/ sericulturist ? last visit 2017 Developmen grey academic disorder 3548575 F81.9 has 504 plan now for ADHD. 2019 had retesting done in school- no LD found but weakness in verbal comp. Asthma 732986697 J45.[address] Vines- 04/26- on flovent and singulair- will call to see if he needs a f/u appt Adjustment disorder 1722 6007 F43.20 no longer seeing therapist . Seems to be doing ok. Eczema 29002637 L30.9 has been doing well- not active for over a year Disorder of vision 98198 002 H53.9 needs appt w/ Dr antoine Well child 954533620 Z00 .129 Disc ADILSON. Continue melatonin for sleep. BP high today ( nervos re : immunizati ons. Will recheck at ADD recheck . Meningitis B vaccine before college. Active or passive immunization 067026848 Z23 Childhood obesity 716440 003 Z68.54 BMI continues to increase and [...] management clinic. Exercises education, guidance, and counseling 445557752 Z71.82 Diet education 95590505 Z71.3 Verruca vulgaris 9336311 3 B07.9 will do cryo when returns for ADD recheck [id number] Jory Carlos MD [address] [address] 06/04/2020 10:45:23 06/04/2020 17:37:13 SARS-CoV-2 392996035 U07.1 Viral syndrome 812174207 B34.9 [id number] Jory Carlos MD [address] [address] 4 06/25/2020 14:22:44 06/25/2020 15:53:15 Child attention deficit disorder 735461139 F90.9 Last year was on Adderall 30 XR taken school days- Bunny felt like that was an OK dose. Restarted Adderall after [facility] a few months ago.504 plan.Since online , teacher scales will not be helpful.Gr ades aren't good but Bunny thinks that is because school is onlineCont inue melatonin school nights.F/u 3 months. Verruca vulgaris 8163711 3 B07.9 Nothing obvious today to cryo- will observe Excessive weight gain 22 7596883 R63.5 BMI >> 99 %- large weight gain over the past Tiny-will refer to weight management . Will limit dairy to 4 servings. Get a portion plate. Go to Choosemypl ate.gov. Goal is 180 lbs. 2200- 2400 cals a day. Will continue daily exercise. Will recheck in 3 month at next visit. Increased blood pressure 36623806 R03.0 Today BP was excellent. [id number] Phong Swenson MD [address] [address] 09/27/2020 15:40:49 09/27/2020 15:55:48 Paronychia of toe 359550270 L03.039 [id number] Jory Carlos MD [facility] Anitha [address] [address] 02/23/2021 08:03:26 02/23/2021 14:21:45 Child attention deficit disorder 902117470 F90.9 ON adderall 30 XR school days- [...] nights.F/u 3 months. Increased body mass index 87720893 Z68.41 Almost 50 lb weight gain over [...] him here. Will repeat BMI labs at [facility] in a few months [id number] Phong Swenson MD [facility] [address] [address] 03/07/2021 08:31:35 03/08/2021 14:04:40 Tuberculosis screening 250356101 Z11.1 [id number] Jory Carlos MD [address] [address] 4 09/29/2021 13:05:18 09/29/2021 17:26:53 History of SARS-CoV-2 9377127921 28290845 Z86.16 Had Covid 2 months ago- back to activity- never had cardiac recheck Anxiety 09688959 F41.9 no longer an issue Child atte ntion deficit disorder 900653737 F90.9 Had been on adderall 30 XR [...] let us know Developmen grey academic disorder 7347024 F81.9 Has 504 plan now for ADHD. 2019 had retesting done in school- no LD found but weakness in verbal comp. Allergy to peanut 759846 09 Z91.010 Peanut allergy- epipens - Needs f/u w/ sericulturist ? last visit 2017 Asthma 987529060 J45.[address] Vines- 04/26- was on flovent and singulair- stopped medication a while ago. Has not needed to use albuterol . Does have it at home. If starts to need it frequently will f/u. Eczema 68020907 L30.9 Not an issue for a while Adjustment disorder 1722 6007 F43.20 no longer seeing therapist . Seems to be doing ok. Disorder of vision 31695 002 H53.9 needs appt w/ opthal- it has been a long time since his last visit- used to wear glasses Verruca vulgaris 2465239 3 B07.9 resolved Childhood obesity 991343 003 Z68.54 BMI is 42.2. Bunny has [...] ( didn't check LFTs ) Hypertriglyceridemia 302 715617 E78.1 last trig 260- will repeat fasting Active or passive immunization 208473479 Z23 Active immunization 3127 9002 Z23 Adult heal th examination 151486076 Z00.00 Disc ADILSON. Continue melatonin for sleep. [id number] Leilani Casey MD [facility] [place] [address] [place] [address] [place] [address] 4 02/08/2022 13:31:01 02/08/2022 14:45:51 Impetigo bullosa 163648640 L01.03 [id number] Jory Carlos MD [facility] [place] [address] [address] 4 05/12/2022 16:34:16 05/12/2022 19:59:36 Acute pharyngitis 193955899 J02.9 [id number] Leilani Casey MD [facility] [address] [address] 4 01/16/2024 16:18:16 01/16/2024 17:11:45 Acute pharyngitis 861771343 J02.9 Asthma 173027783 J45.90 9 [id number] ADIEL CASTRO MD [facility] [place] [address] [address] 03/04/2024 14:07:27 03/05/2024 07:29:27 Adult health examination 822393058 Z00.00 Diet education 57285051 Z71.3 Exercises education, guidance, and counseling 232466377 Z71.82 Screening for disorder 550177730 Z13.31 Abnormal weight gain 161 573989 R63.5 Morbid obesity [id number] E66.01 Health Concerns Section Related Observation LastModified by Organization Detai ls LastModified Time None Recorded Concern Status LastModified by Organization Details LastModified Time None Recorded Advance Directives Directive None Recorded Payers Encounter Date Sequence Insurance Name Policy Number Policy Guerrero Covered Member ID Guerrero Member ID Guarantor Name 09/29/2021 2 [place] [facility] Bunny Russo [id number] Rosalie Koroma 02/08/2022 2 [place] Bunny Russo [id number] Rosalie Koroma 05/12/2022 2 [place] [facility] [place] Bunny Koroma Russo [id number] Rosalie Koroma 01/16/2024 2 [place] Bunny Koroma Rus[place] [id number] Rosalie Koroma 03/04/2024 2 [place] [facility] [place] Bunny Russo [id number] Rosalie Koroma Notes Date Note Type Note [...] Meds taken. No sick contacts. Returned from [place] 3 days ago. Has just started using antibacterial soap. Has been swimming in ocean. Lesions started BUEs - R antecub fossa area and L axilla but not where hair is present, now also on L lower abd/L popliteal fossae/R cheek and R eyebrow Leilani Casey MD [address] [place] [address], , [facility] 02/08/2022 14:06:26 05/12/2022 text/html RS Sick [...] yesterday.Brother w/ similar sx. Jory Carlos MD [address] [place] [address], , [facility] 05/12/2022 19:46:33 01/16/2024 text/html RS Sick Visit Narrative HistoryReported bypatient.Notes:Pt is here for a ST x 4 days.Dry cough, Congestion x 4 days.Intermittent SOB noticed 2 days ago. Hasn't been using inhaler.AfebrileNo sx of N/V/D, No FAN, No ear pain, No body aches, Afebrile.OTC meds Taken.Girlfriend dx w/ PNA 2 wks ago.Needs new Rx for inhaler. Leilani Casey MD [address] [place] [address], [id number], [facility] 01/16/2024 16:56:22
== END 2024-12-17 12:01 | disposition home or self-care (01) ==
LOC: HO.HBST 11:17
PROVIDERS: Visit Provider Counselor Mental Health
DX: F90.9 Attention-deficit hyperactivity disorder, unspecified type (principal); F41.9 Anxiety disorder, unspecified; Z71.89 Other specified counseling
CPT/HCPCS: 90837

== ENCOUNTER 2024-12-23 07:22 | Outpatient (REF) | payer OTHER, SELFPAY ==
--- NOTE | ~2024-12-23 | XR_ITS ---
EXAMINATION: XR CHEST CLINICAL INFORMATION: E66.01 - Morbid (severe) obesity due to excess calories COMPARISON: None available. TECHNIQUE: 2 views of the chest were obtained. FINDINGS: No consolidation, pleural effusion or pneumothorax. Cardiomediastinal silhouette size is normal. Osseous structures are intact. XR/XR chest 2V IMPRESSION: No acute airspace disease. Normal chest x-ray. Electronically signed by: Martin Segura MD 12/23/2024 08:43 AM EDT
--- OUTSIDE RECORDS SUMMARY | 2024-12-23 07:26 | XMS_ITS | Data Portability ---
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 and exercise. F/u 2 months [id number] Jory Carlos MD [facility] [place] [address] [address] 03/26/2013 13:35:21 03/26/2013 15:42:13 Eczema 23507975 using westcort cream qd-will increase to bid. Continue moisturize r Asthma 023701186 Just started the flovent-re cent visit Dr Vines-f/u in 07/22 Allergy 019228730 ? trou ble w/peanuts- will give epipen to have and refer to plastics fabricator and assembler Abnormal weight gain 197029517 Continues to do well-BMI now only @ 88%. Does have appt w/wgt management next month. Will f/u here prn. [id number] Jory Carlos MD [address] [address] 09/12/2013 13:11:48 09/12/2013 15:26:49 Well child 462397052 Adjustment disorder 69074751 Was seen at [facility] by Suni Lucas-saw X 1 year-wasn' t helpful-wi ll be starting w/a new therapist- Allergy 250552551 ? trou ble w/peanuts- has epipen still needs to see plastics fabricator and assembler Asthma 745782632 On flovent-rl ast visit Dr Vines 03/2013-nee ds f/u appt Attention deficit hyperactivity disorder, combined type 45033168 Was seen Psychiatry at [facility]-w as on stimulant- was on meds x 2-4 weeks-only tried 1 medication -mom to contact them again-if they won't see him I will need the records and will f/u here for eval. Developmen grey academic disorder 2142876 Had testing thru [facility]-d id recommend IEP 10/2010--fan s 504 plan now for ADHD. Eczema 33391033 using westcort cream prn Continue moisturize r Seizure 33324250 Dr Light- no seizures in 2 years-disc harged him 2011 Childhood obesity 213939238 Large wgt gain-over last 6 months-BMI @ 93%-next appt w/wgt mangement in 3 months [id number] Leilani Casey MD [facility] [address] [address] 10/13/2013 18:03:54 10/13/2013 18:14:04 Acute pharyngitis 872001671 [id number] Jory Carlos MD [facility] [address] [address] 06/11/2014 10:16:18 06/11/2014 11:27:47 Acute pharyngitis 209488100 Concussion 14217804 [id number] Jory Carlos MD [address] [address] 09/11/2014 13:10:37 09/11/2014 16:50:17 Well child 101317230 will defer HPV for now Asthma 745526167 On flovent- sees Dr Vines-will start albuterol before exercise Allergy 919642826 ? trou ble w/peanuts- has epipen still needs to see plastics fabricator and assembler Childhood obesity 584489116 has appt w/weight management scheduled- will defer labs to them Adjustment disorder 96124064 sees therapist at [facility] Attention deficit hyperactivity disorder, combined type 35898820 Seen by Psychiatry at [facility]- has been tried on medication -has 504 plan Developmen grey academic disorder 8661855 Had testing thru [facility]-d id recommend IEP 10/2010--fan s 504 plan now for ADHD. Eczema 83261085 using westcort cream prn Continue moisturize r Seizure 17994669 Dr Light- no seizures in 3 years-disc harged him 2011 [id number] Chin Hi MD [address] [address] 09/22/2014 16:02:17 09/22/2014 16:45:07 Asthma 079667652 Viral syndrome 508044729 [id number] Jory Carlos MD [address] [address] 12/09/2014 16:00:04 12/09/2014 17:14:11 Impetigo bullosa 247121645 [id number] Jory Carlos MD [address] [address] 01/06/2015 15:28:43 01/06/2015 17:16:06 Injury of finger 79718683 [id number] Jory Carlos MD [address] [address] 03/19/2015 16:32:47 03/19/2015 17:44:26 Acute pharyngitis 716865710 Asthma 486639286 restart flovent [id number] Jory Carlos MD [address] [address] 04/28/2015 15:30:59 04/28/2015 17:29:31 Acute pharyngitis 915293167 J02.9 Knee pain 56217494 M25.5 62 Longstandi ng intermitte nt knee pain [id number] Chin Hi MD [facility] [address] [address] 08/18/2015 14:50:17 08/18/2015 15:24:28 Acute pharyngitis 443307376 J02.9 Asthma 791163249 J45.90 9 Upper resp iratory infection 09213817 J06.9 [id number] Jory Carlos MD [address] [address] 09/14/2015 11:00:34 09/14/2015 12:55:47 Active or passive immunization 295390513 Z23 Well child 013449518 Z00 .129 Allergy 440468478 Z91.09 ? trouble w/peanuts- has epipen still needs to see plastics fabricator and assembler Asthma 113720481 J45.90 9 on flovent-se es Dr Vines-last visit ? 03/2014-mila trejo f/u appt Adjustment disorder 1722 6007 F43.20 stopped seeing therapist at [facility] approx 3 months ago--would n't talk w/therapis t. Behavior is better Attention deficit hyperactivity disorder, combined type 46429978 F90.2 Seen by Psychiatry at [facility]- in the past-has been tried on medication X 1- -has 504 plan Developmen grey academic disorder 4576377 F81.9 has 504 plan now for ADHD. Eczema 41949276 L30.9 using westcort cream prn Continue moisturize r & dove soap Knee pain 52447673 M25.5 67 saw ortho- not an issue now Childhood obesity 315903 003 Z68.54 saw wgt management x 1- -BMI stable @ 95%-will return to weight management -will get labs done there [id number] Sophia Han MD [facility] [place] [address] 09/24/2015 16:08:06 09/24/2015 17:05:22 Acute pharyngitis 906893808 J02.9 Streptococ mailcar sore throat 15537890 J02.0 [id number] Jory Carlos MD [facility] [address] [address] 11/17/2015 15:27:29 11/17/2015 15:44:17 Active or passive immunization 337238218 Z23 [id number] Jory Carlos MD [address] [address] 05/26/2016 15:45:21 05/26/2016 17:15:59 Asthma 458087466 J45.[address] Vines-? still needs to be on flovent ( last filled 07/2014 ) Low back pain 225851817 M54.5 pelvic rim pain posteriorl y w/running- x 2 weeks-? muscular- vs SI joint-will stretch before running-tr y ibuprofen- if still an issue in a few weeks will refer to sports medicine [id number] Jory Carlos MD [facility] [address] [address] 06/07/2016 14:01:52 06/07/2016 17:19:36 Child attention deficit disorder 354314440 F90.9 [id number] Jory Carlos MD [address] [address] 07/27/2016 12:41:57 07/27/2016 14:35:53 Child attention deficit disorder 333856506 F90.9 currently on Adderall 10 XR daily-pare nt scales w/ small improvemen t-do not have manager social work which had the most impairment . Will get that now and increase to 20 mg. Will f/u by phone in 2 weeks. Can use only school days now. Watch weight since has had some loss.Get repeat scales before next visit.Mom to talk with school about testing for LD. Did have neuropsych testing in 2010 through [facility] that had some issues demonstrat ed. instructional resource teacher shows problems with written and expressive language that can signal LD.f/u 2 months [id number] Jory Carlos MD [address] [address] 12/06/2016 10:21:34 12/06/2016 13:28:08 Child attention deficit disorder 834362392 F90.9 currently on Adderall 20 XR daily, teacher scales w/ much improvemen t except thai which is worse.Vick oleary also does not like that teacher. He does have some itrritabil ity after school and has some trouble getting homework done. Will try Adderall 5 mg after school-can increase to 10 mg.Can continue to use only school days now.Mom to talk with school about testing for LD again Did have neuropsych testing in 2010 through [facility] that had some issues demonstrat ed instructional resource teacher shows problems with written and expressive language that can signal LD.f/u at [facility]-needs to schedule. Will schedule dedicated ADD recheck after that. [id number] Jory Carlos MD [facility] [place] [address] [facility] [place] [address] 12/08/2016 11:26:17 12/08/2016 13:31:52 Active or passive immunization 128411849 Z23 Well child 350133979 Z00 .129 will test for LD next year. EXcellent weight control-al though BMI still > 85%-likely combinatio n ADD meds and healthy eating. Will be following at ADD rechecks. Child atte ntion deficit disorder 502634643 F90.9 JUst saw this week-ramiro skelton on Adderall 20 XR daily, teacher scales w/ much improvemen t except thai which is worse.Vick oleary also does not like that teacher. He does have some irritabili ty after school and has some trouble getting homework done. Will try Adderall 5 mg after school-can increase to 10 mg.Can continue to use only school days now. Will be off for the summer. Will meet at the end of the summer /beginning or the school year. Allergy 083777581 Z91.09 ? trouble w/peanuts- has epipen still needs to see plastics fabricator and assembler- appt 02/2017 Adjustment disorder 1722 0147 F43.20 stopped seeing therapist at [facility] 2015--woul dn't talk w/therapis t. Behavior is better Developmen grey academic disorder 1630675 F81.9 has 504 plan now for ADHD. Asthma 675619318 J45.[address] Vines 2013-only uses when exercise for a long time-will use 2 puffs before exercise -if doesn't work will f/u. MDI demonstrat ed and info sheet given. Eczema 58191767 L30.9 resolved [id number] Jory Carlos MD [facility] [address] [facility] [place] [address] 05/23/2017 10:14:21 05/23/2017 11:53:15 Child attention deficit disorder 545356792 F90.9 Currently on Adderall 20 XR school days. Teacher scales are great!!! and doing well in school w/ tutoring for thai. No trouble getting homework done now after school. Got crabby w/ Adderall 5 mg after school. Has 504 plan. Behavior is better. Weight increase likely 2nd to being off medication for the summer. Goals met. Will still pursue the eval for LD since needing outside help to be successful . Will remeet in 3 months. Needs to have something for lunch. Asthma 299346253 J45.90 9 will use before basketball Seborrheic dermatitis of scalp 452305485 L21.0 diffuse scaling-us e dandruff shampoo [id number] Jory Carlos MD [facility] [place] [address] [place] [address] 10/10/2017 10:25:58 10/10/2017 12:02:25 Child attention deficit disorder 863562019 F90.9 Currently on Adderall 20 XR school days. . Got crabby w/ Adderall 5 mg after school. Has 504 plan.Grade s are excellent! !! Goals met. Never pursued eval for LD since was doing so well in school. Will remeet in 2 months. at [facility]. Will meet after the summer after school has been in session for a few months & get teacher scales before then. [id number] Jory Carlos MD [facility] [place] [address] [address] 01/03/2018 14:46:38 01/03/2018 17:50:07 Well child 591162796 Z00.129 Mom to get [employer] book Re: Teenagers Overweight in childhood 621993638 Z68.53 increase in BMI to 93%-discus sed healthy eating and exercise- goal will be to keep weight the same-will f/u at next ADD checK Disorder of vision 00640 002 H53.9 no glasses-mo m to check to see when he needs his next appt Child atte ntion deficit disorder 417743506 F90.9 Currently on Adderall 20 XR school [...] & get teacher scales before then. Allergy 055100907 Z91.09 saw plastics fabricator and assembler 04/24-has madeleine ds f/u 04/25 Adjustment disorder 1722 6007 F43.20 stopped seeing therapist at [facility] 2016--woul dn't talk w/therapis t. Behavior is better-see ms like typical teen Developmen grey academic disorder 8759046 F81.9 has 504 plan now for ADHD. Asthma 191403386 J45.90 9 will use before basketball -MDI demonstrat ed ( had poor technique) Eczema 96972802 L30.9 still an issue-west yannick prn Verruca vulgaris 5828209 3 B07.9 OTC meds 1st-f/u cryo prn [id number] Jory Carlos MD [facility] [employer] [address] [address] 03/20/2018 15:53:33 03/20/2018 17:29:15 Child attention deficit disorder 509588143 F90.9 Currently on Adderall 20 XR school [...] medication . Will continue melatonin for sleep. [id number] Jory Carlos MD [facility] [place] [address] [address] [facility] [place] [address] 06/21/2018 10:44:58 06/21/2018 12:25:12 Child attention deficit disorder 330080833 F90.9 Currently on Adderall 30 XR school days.Incre ased from 20XR this school year. Has 504 plan. Melatonin works well for sleep. Discussed limiting screen time 1.5 hrs before bedtime to help with sleep issues. . Teacher's scales are all good-excep t some impairment noted in social studies. Grades however are not good in thai or social studies. Bunny is not sure [...] in school last year- really struggles w/ thai and social studies this this year in 8th grade. Mom to pursue now. Did have eval 2011 that was suggestive of speech and language issues. Adjustment disorder 1722 6007 F43.20 Sees therapist at school-jo tom behavior- sees her weekly- just started- re: behavior at home Verruca vulgaris 1434685 3 B07.9 wart-cryo today. Info sheet given. [id number] MD DK George [employer] w [facility] [place] [address] 10/04/2018 16:11:54 10/04/2018 17:25:22 Child attention deficit disorder 858338297 F90.9 Currently on Adderall 30 XR school [...] in school last year- really struggles w/ thai Did have eval 2011 that was suggestive of speech and language issues. Mom still needs to pursue eval. F/u at [facility] in 3 months. [id number] MD DK George [place] [address] 12/06/2018 10:42:51 12/06/2018 14:55:14 Allergy 140930045 Z91.09 Near syncope 033408051 R 55 had an episode near syncope- will work on breakfast and a snack- work on hydration. Does NOT sound like a seizure. No need for EEG at this point [id number] MD DK George [place] [address] [facility] [place] [address] 03/07/2019 08:23:32 03/07/2019 12:36:51 Well child 722345868 Z00.129 Can stop fluoride now. Will try OTC wart removal for wart on elbow. 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 Will hold off on labs unless unable to decrease weight. Eventual goal is is low 170s. Child atte ntion deficit disorder 514134961 F90.9 Has been off medication during the [...] F/u in 2 months for recheck Asthma 395708279 J45.[address] Vines- started flovent and singulair- f/u w/ him in 2-3 months Allergy to peanut 131248 09 Z91.010 peanut allergy- epipens . Needs f/u w/ plastics fabricator and assembler Eczema 06392030 L30.9 has been doing well Adjustment disorder 1722 6007 F43.20 no longer seeing therapist since insurance doesn't cover [facility]- stopped seeing her at the end of the school year. Seems to be doing ok. Disorder of vision 06172 002 H53.9 needs appt w/ Dr antoine Anxiety 22586490 F41.9 improved [id number] MD [facility] [place] [address] [facility] [place] [address] 05/09/2019 11:05:07 05/09/2019 12:18:53 Child attention deficit disorder 250625843 F90.9 On Adderall 30 XR taking school days- grades faily good- thai is a bit of a struggle- just had retesting done in school- no LD found but weakness in verbal comp. Will continue 504 plan.Bradley nue melatonin for sleep. f/u in 4 months- sooner if any change.Matt buckley get teacher scales when possible but before next next visit. Complainin g of - postnasal drip 597624493 R09.82 PND past 3 weeks- will try flonase- if not better in 1 week will treat for sinusitis w/ amox Increased body mass index 40261544 Z68.41 excellent weight control- weight down from 192-> 183. Will aim for BMI of 25 ( approx 173 lbs ) [id number] Jory Carlos MD [facility] [address] [facility] [place] [address] 04/08/2020 14:31:27 04/08/2020 16:59:26 Child attention deficit disorder 665535715 F90.9 Last year was on Adderall 30 XR taken school days- Bunny felt like that was an OK dose- Has been off medication this year so far- needs to restart it.Will continue 504 plan.Since online , teacher scales will not be helpful. F/u 2 months. Allergy to peanut 544043 09 Z91.010 peanut allergy- ? epipens - will check. . Needs f/u w/ plastics fabricator and assembler ? last visit 2017 Developmen grey academic disorder 0431374 F81.9 has 504 plan now for ADHD. 2019 had retesting done in school- no LD found but weakness in verbal comp. Asthma 841784609 J45.[address] Vines- 04/26- on flovent and singulair- will call to see if he needs a f/u appt Adjustment disorder 1722 6007 F43.20 no longer seeing therapist . Seems to be doing ok. Eczema 69450784 L30.9 has been doing well- not active for over a year Disorder of vision 22213 002 H53.9 needs appt w/ Dr antoine Well child 419706537 Z00 .129 Disc ADILSON. Continue melatonin for sleep. BP high today ( nervos re : immunizati ons. Will recheck at ADD recheck . Meningitis B vaccine before college. Active or passive immunization 630965030 Z23 Childhood obesity 279679 003 Z68.54 BMI continues to increase and [...] management clinic. Exercises education, guidance, and counseling 785036785 Z71.82 Diet education 01706640 Z71.3 Verruca vulgaris 8617812 3 B07.9 will do cryo when returns for ADD recheck [id number] Jory Carlos MD [address] [address] 06/04/2020 10:45:23 06/04/2020 17:37:13 SARS-CoV-2 597058123 U07.1 Viral syndrome 362352648 B34.9 [id number] Jory Carlos MD [address] [address] 06/25/2020 14:22:44 06/25/2020 15:53:15 Child attention deficit disorder 341742900 F90.9 Last year was on Adderall 30 XR taken school days- Bunny felt like that was an OK dose. Restarted Adderall after [facility] a few months ago.504 plan.Since online , teacher scales will not be helpful.Gr ades aren't good but Bunny thinks that is because school is onlineCont inue melatonin school nights.F/u 3 months. Verruca vulgaris 0816713 3 B07.9 Nothing obvious today to cryo- will observe Excessive weight gain 22 8703597 R63.5 BMI >> 99 %- large weight gain over the past Tiny-will refer to weight management . Will limit dairy to 4 servings. Get a portion plate. Go to Choosemypl ate.gov. Goal is 180 lbs. 2200- 2400 cals a day. Will continue daily exercise. Will recheck in 3 month at next visit. Increased blood pressure 89219479 R03.0 Today BP was excellent. [id number] Phong Swenson MD [address] [address] 09/27/2020 15:40:49 09/27/2020 15:55:48 Paronychia of toe 062319658 L03.039 [id number] Jory Carlos MD [address] [address] 02/23/2021 08:03:26 02/23/2021 14:21:45 Child attention deficit disorder 886838362 F90.9 ON adderall 30 XR school days- [...] nights.F/u 3 months. Increased body mass index 99732606 Z68.41 Almost 50 lb weight gain over [...] him here. Will repeat BMI labs at [facility] in a few months [id number] Phong Swenson MD [address] [address] 03/07/2021 08:31:35 03/08/2021 14:04:40 Tuberculosis screening 549335638 Z11.1 [id number] Jory Carlos MD [address] [address] 09/29/2021 13:05:18 09/29/2021 17:26:53 History of SARS-CoV-2 3860146998 90238799 Z86.16 Had Covid 2 months ago- back to activity- never had cardiac recheck Anxiety 88318750 F41.9 no longer an issue Child atte ntion deficit disorder 527575893 F90.9 Had been on adderall 30 XR [...] let us know Developmen grey academic disorder 4173327 F81.9 Has 504 plan now for ADHD. 2019 had retesting done in school- no LD found but weakness in verbal comp. Allergy to peanut 739519 09 Z91.010 Peanut allergy- epipens - Needs f/u w/ plastics fabricator and assembler ? last visit 2017 Asthma 859174221 J45.[address] Vines- 04/26- was on flovent and singulair- stopped medication a while ago. Has not needed to use albuterol . Does have it at home. If starts to need it frequently will f/u. Eczema [id number] L30.9 Not an issue for a while Adjustment disorder 1722 6007 F43.20 no longer seeing therapist . Seems to be doing ok. Disorder of vision 48022 002 H53.9 needs appt w/ opthal- it has been a long time since his last visit- used to wear glasses Verruca vulgaris [id number] B07.9 resolved Childhood obesity 193923 003 Z68.54 BMI is 42.2. Bunny has [...] recheck weight increases. Last checked BMI labs 2020- needs repeat ( didn't check LFTs ) Hypertriglyceridemia 302 033401 E78.1 last trig 260- will repeat fasting Active or passive immunization [id number] Z23 Active immunization 1187 9002 Z23 Adult heal th examination 222090553 Z00.00 Disc ADILSON. Continue melatonin for sleep. [id number] Leilani Casey MD [facility] Anitha hogan [address] [place] [address] [place] [address] 02/08/2022 13:31:01 02/08/2022 14:45:51 Impetigo bullosa 216630867 L01.03 [id number] Jory Carlos MD [facility] [address] [address] 05/12/2022 16:34:16 05/12/2022 19:59:36 Acute pharyngitis [id number] J02.9 [id number] Leilani Casey MD [facility] [address] [address] 01/16/2024 16:18:16 01/16/2024 17:11:45 Acute pharyngitis 125887282 J02.9 Asthma 378824416 J45.90 9 [id number] ADIEL CASTRO MD [facility] [address] [address] 03/04/2024 14:07:27 03/05/2024 07:29:27 Adult health examination 577376927 Z00.00 Diet education 01144899 Z71.3 Exercises education, guidance, and counseling 143077048 Z71.82 Screening for disorder 610670641 Z13.31 Abnormal weight gain 161 932975 R63.5 Morbid obesity 530487618 E66.01 Health Concerns Section Related Observation LastModified by Organization Detai ls LastModified Time None Recorded Concern Status LastModified by Organization Details LastModified Time None Recorded Advance Directives Directive None Recorded Payers Insurance Date Sequence Insurance Name Policy Number Policy Guerrero Covered Member ID Guerrero Member ID Guarantor Name 10/02/[address] [place] [address] [email or web address] [facility] [id number] Bunny Russo [id number] 1 Rosalie Koroma 10/02/2024 1 [facility] - PLAN TYPE 3 (MEDICAID HMO) Bunny Martins [id number] Rosalie Koroma 10/02/2024 1 [facility] NET PLAN (MEDICAID HMO) [id number] Bunny Martins [id number] Rosalie Koroma 05/14/2007 1 *SELF PAY* Paulino Koroma 11/18/2024 2 [place] [facility] Bunny Russo [id number] Rosalie Koroma 11/18/2024 1 SULY [id number] Bunny Russo [id number] Rosalie Koroma Notes Date Note Type Note [...] Meds taken. No sick contacts. Returned from [employer] 3 days ago. Has just started using antibacterial soap. Has been swimming in ocean. Lesions started BUEs - R antecub fossa area and L axilla but not where hair is present, now also on L lower abd/L popliteal fossae/R cheek and R eyebrow Leilani Casey MD [address] [place] [address], , [facility] 02/08/2022 14:06:26 05/12/2022 text/html [...] yesterday.Brother w/ similar sx. Jory Carlos MD [address] [place] [address], , [facility] 05/12/2022 19:46:33 01/16/2024 text/html RS Sick Visit Narrative HistoryReported bypatient.Notes:Pt is here for a ST x 4 days.Dry cough, Congestion x 4 days.Intermittent SOB noticed 2 days ago. Hasn't been using inhaler.AfebrileNo sx of N/V/D, No FAN, No ear pain, No body aches, Afebrile.OTC meds Taken.Girlfriend dx w/ PNA 2 wks ago.Needs new Rx for inhaler. Leilani Casey MD [address] [place] [address], [phone], [facility] 01/16/2024 16:56:22
--- NOTE | 2024-12-23 07:57 | ECG_ITS ---
Test Reason : obesity Blood Pressure : */* mmHG Vent. Rate : 79 BPM Atrial Rate : 79 BPM P-R Int : 154 ms QRS Dur : 88 ms QT Int : 374 ms P-R-T Axes : 31 23 11 degrees QTcB Int : 428 ms Normal sinus rhythm Normal ECG No previous ECGs available Referred By: Rufus Still Electronically Signed By: Livan Patricio
[2024-12-23 08:10] LABS: MANUAL DIFF FLAG NO
[2024-12-23 08:42] LABS: Basophils Absolute Auto 0.1 X10*3/uL (0.0-0.2); Basophils Percent Auto 0.7 % (0-2); Eosinophils Absolute Auto 0.3 X10*3/uL (0.0-0.4); Eosinophils Percent Auto 3.1 % (0-4); Hematocrit 46.7 % (42.0-52.0); Hemoglobin 15.9 g/dl (14.0-18.0); Imm Gran Abs Auto 0.08 X10*3/uL (0.00-0.03); Imm Gran Pct Auto 0.8 % (0.0-0.4); Lymphocytes Percent Auto 31.9 % (20-40); Mean Corpuscular Hemoglobin 28.3 pg (27.0-33.0); Mean Corpuscular Volume 83.1 fL (80.0-98.0); Monocytes Absolute Auto 1.1 X10*3/uL (0.1-1.2); Monocytes Percent Auto 11.4 % (2-11); Neutrophils Absolute Auto 4.9 x10*3/uL (2.0-8.3); Neutrophils Percent Auto 52.1 % (45-73); Platelet Count 233 X10*3/uL (160-400); Red Blood Count 5.62 X10*6/uL (4.60-5.80); Red Cell Distribution Width 12.7 % (11.0-16.0); White Blood Count 9.5 X10*3/uL (4.8-10.8)
[2024-12-23 08:59] LABS: Estimated Average Glucose 111 mg/dL; Hemoglobin A1C 150.4096 umol/L; Hemoglobin A1c % 5.5 % (<6.0)
[2024-12-23 09:01] LABS: Anion Gap 10 (12-20)
[2024-12-23 09:06] LABS: Alanine Aminotransferase 76 U/L (0-40); Albumin Level 4.4 g/dL (3.5-5.0); Alkaline Phosphatase 106 U/L (39-117); Aspartate Amino Transferase 39 U/L (5-37); Bilirubin Total 1.1 mg/dL (0.0-1.0); Blood Urea Nitrogen 14 mg/dL (9-16); C Reactive Protein 1.39 mg/dL (< or = 0.50); Calcium 9.4 mg/dL (8.4-10.2); Carbon Dioxide 26 mmol/L (22-29); Chloride 107 mmol/L (96-108); Cholesterol 172 mg/dL (<200); Estimated Glomerular Filt Rate > 60; Glucose Random 106 mg/dL (60-115); HDL Cholesterol 35 mg/dL (>40); Iron 68 mcg/dL (45-160); LDL Cholesterol Calculated 105 mg/dL (<100); Percent Iron Saturation 23 % (15-50); Potassium 4.2 mmol/L (3.3-5.1); Sodium 139 mmol/L (135-145); Total Iron Binding Capacity 296 mcg/dL (228-428); Triglycerides 164 mg/dL (<150); Unsaturated Iron Binding 228 ug/dL
[2024-12-23 09:30] LABS: Ferritin 98 ng/mL (20-250); TSH reflex Free T4 3.42 uIU/mL (0.32-4.0); Vitamin D 25-OH Total 20.9 ng/mL (>30)
[2024-12-23 09:37] LABS: Folate 10.9 ng/mL (> or = 4.0); Vitamin B12 698 pg/mL (200-900)
[2024-12-23 10:36] LABS: Insulin 29 uU/mL (2-29)
[2024-12-25 23:19] LABS: Zinc 75 mcg/dL (60-130)
[2024-12-26 19:34] LABS: Vitamin A 65 mcg/dL (38-98)
[2024-12-27 08:13] LABS: Vitamin B1 11 nmol/L (8-30)
== END 2024-12-23 07:23 | disposition home or self-care (01) ==
LOC: HO.XRAY 07:22
PROVIDERS: Visit Provider Surgery
DX: E66.01 Morbid (severe) obesity due to excess calories (principal); I10 Essential (primary) hypertension; Z13.1 Encounter for screening for diabetes mellitus
CPT/HCPCS: 36415; 71046; 80053; 80061; 82306; 82607; 82728; 82746; 83036; 83525; 83540; 84425; 84443; 84590; 84630; 85025; 86140; 93005

== ENCOUNTER → 2024-12-23 07:57 | Outpatient (BNV) | payer OTHER, SELFPAY | PROVIDERS: Visit Provider Internal Medicine Cardiovascular Disease | DX: E66.9 Obesity, unspecified (principal) | CPT/HCPCS: 93010 ==

== ENCOUNTER → 2024-12-23 08:25 | Outpatient (BNV) | payer OTHER, SELFPAY | PROVIDERS: Visit Provider Radiology Diagnostic Radiology | DX: E66.01 Morbid (severe) obesity due to excess calories (principal) | CPT/HCPCS: 71046 ==

== ENCOUNTER 2025-01-14 12:11 | Outpatient (AMB) | payer OTHER, SELFPAY ==
--- NOTE | 2025-01-14 12:05 | A.OFFWM_ITS ---
Intake Intake Visit Reasons: VIDEO F/U Allergies peanut Allergy (Mild, Verified 10/24/24 10:09) UNKN [facility] Medical History (Updated 12/23/24 @ 21:11 by Rufus Still MD) Anxiety Morbid obesity Blocked tear duct, congenital Epilepsy ADHD Asthma Behavioral Health Assessment Weight Management Therapy Therapy Notes Details The patient is a 19-year-old male presenting for a behavioral health follow-up visit via Telehealth. He has been cleared from a behavioral health standpoint for weight-loss surgery. His mental health is currently stable, with no safety concerns or significant psychological barriers noted. He demonstrates emotional readiness for surgery, appropriate insight, and the capacity to follow through with treatment. However, the patient has shown inconsistent adherence to the pre-operative meal and exercise plans provided. During the session, psychoeducation was offered on the importance of pre- surgical behavior change and its direct impact on post-operative outcomes, including weight loss, recovery, and complication risk. Motivational interviewing techniques were used to explore current barriers to adherence and to enhance his internal motivation for change. The patient was encouraged to reflect on personal values and goals that support healthier routines. He is advised to maintain ongoing communication with bariatric care team to reinforce accountability and support. Behavioral health follow-up will continue after surgery monitor progress, address potential emotional challenges, and assist in establishing long-term behavioral changes essential for surgical success. Presenting Concerns Referral Source WMP-Provider. Reason for referral Completion of behavioral health assessment as part of process for weight-loss surgery. Precipitating Event Obesity. Living Situation Current Living Situation Own and Relative's/Guardian's Cliff At risk of losing current housing? No Satisfied with current living situation? Yes Comments PT lives with his parents and 3 siblings. Food/Weight/Diet Expectations of change PT started the program at 333 lbs at the office scale, however he reported to be at 339Lbs at his home scale And most recent weight as of 11/18/2024 was 334 lbs. using his home scale. Recent weight on 12/14/24: 333Lbs Weight as of 01/13/2025: 327Lbs The initial goal is to lose 10% of your weight before surgery, which is about 33lbs. Ultimate weight goal: 300lbs before surgery. PT is implementing the following: Current meal plan: Using the normal plan. He's doing a combination of shakes and 1 meal at day (dinner). Following most of the times, besides when he was on vacation. Exercise plan: stationary bike. 150cal 2 times at day, trying to do 5-6 days at week. Scale: Yes Communication w/ the Dr: yes on Tuesdays. History/Relationship with food PT reports he has issues trying new things, since age 1 he sticks to the same things do doesn't east as healthy. He doesn't eat veggies. Yesterday meals: Breakfast: Nutra gram bar and a cheese stick. In between 12-2: Protein shake (24 oz of water and 2 scoops- uses isopure) - Doing it wrong. Dinner: Quesadillas (grilled chicken, cheese, marii de suresh, low carb tortilla) Snacks: None. Drinks/Liquids: water. History/Relationship with weight In the last 10 years, the patient's Lowest weight was 180 lbs. (before COVID) and highest 350Lbs around June/2024. History/Relationship with dieting Self-diets. Portion control. Choosing healthy options. Binge Eating Do you frequently eat large amounts of food in short periods of time, not feeling physically hungry? Yes Do you feel out of control when you eat a large amount of food in a short period of time? No Do you eat large amounts of food rapidly and typically alone? No Night Eating Do you wake up at least once during the night to eat? No If you wake up in the night, do you find that it is necessary to eat something in order to fall back asleep? No Do you have little or no appetite in the morning and feel very hungry in the evening, often overeating between dinner and when you go to bed? Yes Social History Family history and relationship PT has been in a relationship for the past 2 years, he currently lives with his parents and 3 siblings, he's the oldest. Pt reports he ahs good family relationships. Parental/Familial geographic information scientist obligations None reported. Developmental history and status Diagnosed with ADHD at age 4, had a 504 plan through school. Social support Parents, girlfriends, best friend. Community support Car club. Gnosticist/Spirituality Yarsanism, goes to confucianist every Sunday. Cultural/Ethnic information Mixed, his mom is white, and his dad is . Legal Involvement and History Current or historical involvement with the legal system? None reported. Education Highest grade completed Hs. Some college. Preferred learning style Learn by doing and Visual Currently enrolled in educational program? No Interested in further educational program? 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 ) Wants help to find employment? No Meaningful activities cars, playing [employer], outdoor activites. Financial Situation Describe current financial situation Comfortable Financial assistance? None Service Service? No Mental Health and Addiction Treatment Current/Past substance abuse? No Comments Alcohol: Social. 1 beer. Cigarettes/Tobacco: None. Cannabis/Edibles: None. Current/Past addictive behavior concerns? No Psychiatric history Patient reports engaging in counseling briefly around the age of 6 due to family-related issues. He was diagnosed with ADHD at approximately age 4 and was prescribed Adderall during high school; however, he discontinued use by 10th grade. He denies any mental health treatment or counseling in adulthood, as well as any history of psychiatric hospitalizations or mental health crises. He also denies any past or current thoughts or be haviors related to self-harm or harm to others. In recent years, he has experienced intermittent panic-like symptoms, primarily triggered by health-related anxiety and fears of mortality, which he attributes to concerns about obesity. Medical and Physical Health Summary Additional Medical History not covered in history None reported. Sexual History concerns None reported. Physical exam in the last year? Yes Pain Screening Current pain? No Pain in the last few months? No Medications Is the patient compliant with medications? Not applicable Does the patient have Falcon Guardian in place? Not applicable Does the patient use complimentary health approaches? No Trauma/Abuse History History of trauma? No Assessment & Plan Assessment & Plan (1) ADHD: Code(s): F90.9 - Attention-deficit hyperactivity disorder, unspecified type (2) Anxiety: Code(s): F41.9 - Anxiety disorder, unspecified (3) Pre-bariatric surgery psychological evaluation: Code(s): Z71.89 - Other specified counseling Plan Patient is cleared from a behavioral health standpoint for weight-loss surgery. Behavioral health follow-up to continue after surgery to support lifestyle adjustments, emotional coping, and long-term habit formation. Next hilda: 1-2 weeks after surgery. Telehealth Telehealth Telehealth Platform: [employer] Location of provider rendering services: other (Home office. [place], [place]) Location of patient: address on file Patient Identification confirmed using: Name, : Yes Telehealth method: video Patient verbally consented to treatment: Yes Patient verbally consented to billing insurance company: Yes Patient informed of any privacy concerns related to visit: Yes Minutes spent on Phone/Video with Pt.: 45 Coding Level of Care Code Established Pt Tele Psytx 45 mins (11905) Patient Type Established Diagnoses ADHD F90.9 Anxiety F41.9 Pre-bariatric surgery psychological evaluation Z71.89 Time Spent (min) 45
--- OUTSIDE RECORDS SUMMARY | 2025-01-14 13:15 | XMS_ITS | Data Portability ---
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 14:16:33 [id number] Jory Carlos MD [address] [address] 01/23/2013 13:37:33 01/23/2013 17:22:03 Obesity [id number] Continue w/excellen t control-BM I now 91%-and down 3 lbs. Will hold off on labs since doing so well. Will continue 1 yucky snack-no amilcar drinks-ski m milk-watch portions and exercise. F/u 2 months [id number] Jory Carlos MD [facility] [address] [place] [address] 03/26/2013 13:35:21 03/26/2013 15:42:13 Eczema 25412145 using westcort cream qd-will increase to bid. Continue moisturize r Asthma 962302866 Just started the flovent-re cent visit Dr Vines-f/u in 07/22 Allergy 591522314 ? trou ble w/peanuts- will give epipen to have and refer to enterprise analyst Abnormal weight gain 089324049 Continues to do well-BMI now only @ 88%. Does have appt w/wgt management next month. Will f/u here prn. [id number] Jory Carlos MD [address] [address] 09/12/2013 13:11:48 09/12/2013 15:26:49 Well child [id number] Adjustment disorder 27656728 Was seen at [facility] by Suni Lucas-saw X 1 year-wasn' t helpful-wi ll be starting w/a new therapist- Allergy 200721274 ? trou ble w/peanuts- has epipen still needs to see enterprise analyst Asthma 454950027 On flovent-rl ast visit Dr Vines 03/2013-nee ds f/u appt Attention deficit hyperactivity disorder, combined type 68732275 Was seen Psychiatry at [facility]-w as on stimulant- was on meds x 2-4 weeks-only tried 1 medication -mom to contact them again-if they won't see him I will need the records and will f/u here for eval. 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 Eczema 36524856 using westcort cream prn Continue moisturize r Seizure 09228694 Dr Light- no seizures in 2 years-disc harged him 2011 Childhood obesity 057949531 Large wgt gain-over last 6 months-BMI @ 93%-next appt w/wgt mangement in 3 months [id number] Leilani Casey MD [address] [address] 10/13/2013 18:03:54 10/13/2013 18:14:04 Acute pharyngitis 182775878 [id number] Jory Carlos MD [address] [address] 06/11/2014 10:16:18 06/11/2014 11:27:47 Acute pharyngitis 281390372 Concussion 83675210 [id number] Jory Carlos MD [address] [address] 09/11/2014 13:10:37 09/11/2014 16:50:17 Well child 278174984 will defer HPV for now Asthma 947996660 On flovent- sees Dr Vines-will start albuterol before exercise Allergy 963070299 ? trou ble w/peanuts- has epipen still needs to see enterprise analyst Childhood obesity 981703457 has appt w/weight management scheduled- will defer labs to them Adjustment disorder 14859258 sees therapist at [facility] Attention deficit hyperactivity disorder, combined type 93909034 Seen by Psychiatry at [facility]- has been tried on medication -has 504 plan Developmen grey academic disorder 0216489 Had testing thru [facility]-d id recommend IEP 10/2010--fan s 504 plan now for ADHD. Eczema 81967620 using westcort cream prn Continue moisturize r Seizure 79681073 Dr Light- no seizures in 3 years-disc harged him 2011 [id number] Chin Hi MD [address] [address] 09/22/2014 16:02:17 09/22/2014 16:45:07 Asthma 665183800 Viral syndrome 602933021 [id number] Jory Carlos MD [address] [address] 12/09/2014 16:00:04 12/09/2014 17:14:11 Impetigo bullosa 200534735 [id number] Jory Carlos MD [address] [address] 01/06/2015 15:28:43 01/06/2015 17:16:06 Injury of finger 35444742 [id number] Jory Carlos MD [address] [address] 4 03/19/2015 16:32:47 03/19/2015 17:44:26 Acute pharyngitis 991627861 Asthma 663465622 restart flovent [id number] Jory Carlos MD [address] [address] 04/28/2015 15:30:59 04/28/2015 17:29:31 Acute pharyngitis 920379480 J02.9 Knee pain 17053703 M25.5 62 Long[address] [address] intermitte nt knee pain [id number] Chin Hi MD [facility] [address] [address] 4 08/18/2015 14:50:17 08/18/2015 15:24:28 Acute pharyngitis 123914906 J02.9 Asthma 890542841 J45.90 9 Upper resp iratory infection 87049461 J06.9 [id number] Jory Carlos MD [address] [address] 09/14/2015 11:00:34 09/14/2015 12:55:47 Active or passive immunization 419123959 Z23 Well child 632090005 Z00 .129 Allergy 105912914 Z91.09 ? trouble w/peanuts- has epipen still needs to see enterprise analyst Asthma 131040462 J45.90 9 on flovent-se es Dr Vines-last visit ? 03/2014-mila nguyen make f/u appt Adjustment disorder 1722 6007 F43.20 stopped seeing therapist at [facility] approx 3 months ago--would n't talk w/therapis t. Behavior is better Attention deficit hyperactivity disorder, combined type 11293557 F90.2 Seen by Psychiatry at [facility]- in the past-has been tried on medication X 1- -has 504 plan Developmen grey academic disorder 3471422 F81.9 has 504 plan now for ADHD. Eczema 74462622 L30.9 using westcort cream prn Continue moisturize r & dove soap Knee pain 26542615 M25.5 67 saw ortho- not an issue now Childhood obesity 130829 003 Z68.54 saw wgt management x 1- -BMI stable @ 95%-will return to weight management -will get labs done there [id number] Sophia Han MD [address] [address] 4 09/24/2015 16:08:06 09/24/2015 17:05:22 Acute pharyngitis 169678098 J02.9 Streptococ amilcar sore throat 35666227 J02.0 [id number] Jory Carlos MD [address] [address] 11/17/2015 15:27:29 11/17/2015 15:44:17 Active or passive immunization 920197650 Z23 [id number] Jory Carlos MD [facility] [address] [place] [address] 4 05/26/2016 15:45:21 05/26/2016 17:15:59 Asthma 780635468 J45.[address] Vines-? still needs to be on flovent ( last filled 07/2014 ) Low back pain 531830695 M54.5 pelvic rim pain posteriorl y w/running- x 2 weeks-? 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 Will get that now and increase to 20 mg. Will f/u by phone in 2 weeks. Can use only school days now. Watch weight since has had some loss.Get repeat scales before next visit.Mom to talk with school about testing for LD. Did have neuropsych testing in 2010 through [facility] that had some issues demonstrat ed. latin teacher shows problems with written and expressive language that can signal LD.f/u 2 months [id number] Jory Carlos MD [facility] w [address] [place] [address] 12/06/2016 10:21:34 12/06/2016 13:28:08 Child attention deficit disorder 569104448 F90.9 currently on Adderall 20 XR daily, teacher scales w/ much improvemen t except jordanian which is worse.Vick oleary also does not like that teacher. He does have some itrritabil ity after school and has some trouble getting homework done. Will try Adderall 5 mg after school-can increase to 10 mg.Can continue to use only school days now.Mom to talk with school about testing for LD again Did have neuropsych testing in 2010 through [facility] that had some issues demonstrat ed latin teacher shows problems with written and expressive language that can signal LD.f/u at [facility]-needs to schedule. Will schedule dedicated ADD recheck after that. [id number] Jory Carlos MD [facility] [place]ith[facility] w [facility] [place] [address] 12/08/2016 11:26:17 12/08/2016 13:31:52 Active or passive immunization 182975814 Z23 Well child 822205235 Z00 .129 will test for LD next year. EXcellent weight control-al though BMI still > 85%-likely combinatio n ADD meds and healthy eating. Will be following at ADD rechecks. Child atte ntion deficit disorder 344963275 F90.9 JUst saw this week-ramiro skelton on Adderall 20 XR daily, teacher scales w/ much improvemen t except jordanian which is worse.Vick oleary also does not like that teacher. He does have some irritabili ty after school and has some trouble getting homework done. Will try Adderall 5 mg after school-can increase to 10 mg.Can continue to use only school days now. Will be off for the summer. Will meet at the end of the summer /beginning or the school year. Allergy 639072035 Z91.09 ? trouble w/peanuts- has epipen still needs to see enterprise analyst- appt 02/2017 Adjustment disorder 1722 4187 F43.20 stopped seeing therapist at [facility] 2015--woul dn't talk w/therapis t. Behavior is better Developmen grey academic disorder 4902338 F81.9 has 504 plan now for ADHD. Asthma 147661014 J45.[address] Vines 2013-only uses when exercise for a long time-will use 2 puffs before exercise -if doesn't work will f/u. MDI demonstrat ed and info sheet given. Eczema 44880315 L30.9 resolved [id number] Jory Carlos MD [facility]a [facility] [place] [address] 05/23/2017 10:14:21 05/23/2017 11:53:15 Child attention deficit disorder 403172495 F90.9 Currently on Adderall 20 XR school days. Teacher scales are great!!! and doing well in school w/ tutoring for jordanian. No trouble getting homework done now after school. Got crabby w/ Adderall 5 mg after school. Has 504 plan. Behavior is better. Weight increase likely 2nd to being off medication for the summer. Goals met. Will still pursue the eval for LD since needing outside help to be successful . Will remeet in 3 months. Needs to have something for lunch. Asthma 759026153 J45.90 9 will use before basketball Seborrheic dermatitis of scalp 556890802 L21.0 diffuse scaling-us e dandruff shampoo [id number] Jory Carlos MD [facility] [employer] w [address] [place] [address] 10/10/2017 10:25:58 10/10/2017 12:02:25 Child attention deficit disorder 956932906 F90.9 Currently on Adderall 20 XR school days. . Got crabby w/ Adderall 5 mg after school. Has 504 plan.Grade s are excellent! !! Goals met. Never pursued eval for LD since was doing so well in school. Will remeet in 2 months. at [facility]. Will meet after the summer after school has been in session for a few months & get teacher scales before then. [id number] Jory Carlos MD [facility] [address] [address] 01/03/2018 14:46:38 01/03/2018 17:50:07 Well child 838357367 Z00.129 Mom to get [employer] book Re: Teenagers Overweight in childhood 272041052 Z68.53 increase in BMI to 93%-discus sed healthy eating and exercise- goal will be to keep weight the same-will f/u at next ADD checK Disorder of vision 11112 002 H53.9 no glasses-mo m to check to see when he needs his next appt Child atte ntion deficit disorder 921305438 F90.9 Currently on Adderall 20 XR school [...] & get teacher scales before then. Allergy 068786281 Z91.09 saw enterprise analyst 04/24-has madeleine ds f/u 04/25 Adjustment disorder 1722 6007 F43.20 stopped seeing therapist at [facility] 2016--woul dn't talk w/therapis t. Behavior is better-see ms like typical teen Developmen grey academic disorder 2194092 F81.9 has 504 plan now for ADHD. Asthma 660415442 J45.90 9 will use before basketball -MDI demonstrat ed ( had poor technique) Eczema 00837909 L30.9 still an issue-west yannick prn Verruca vulgaris 0296690 3 B07.9 OTC meds 1st-f/u cryo prn [id number] Jory Carlos MD [facility] [employer] [facility] [place] [address] 03/20/2018 15:53:33 03/20/2018 17:29:15 Child attention deficit disorder 576205432 F90.9 Currently on Adderall 20 XR school [...] medication . Will continue melatonin for sleep. [id number] Jory Carlos MD [facility] [employer] [facility] [employer] [facility] [place] [address] 06/21/2018 10:44:58 06/21/2018 12:25:12 Child attention deficit disorder 168588964 F90.9 Currently on Adderall 30 XR school days.Incre ased from 20XR this school year. Has 504 plan. Melatonin works well for sleep. Discussed limiting screen time 1.5 hrs before bedtime to help with sleep issues. . Teacher's scales are all good-excep t some impairment noted in social studies. Grades however are not good in jordanian or social studies. Bunny is not sure [...] in school last year- really struggles w/ jordanian and social studies this this year in 8th grade. Mom to pursue now. Did have eval 2011 that was suggestive of speech and language issues. Adjustment disorder 1722 6007 F43.20 Sees therapist at school-jo tom behavior- sees her weekly- just started- re: behavior at home Verruca vulgaris 4526825 3 B07.9 wart-cryo today. Info sheet given. [id number] MD DK George [employer] [facility] [place] [address] 10/04/2018 16:11:54 10/04/2018 17:25:22 Child attention deficit disorder 703167925 F90.9 Currently on Adderall 30 XR school [...] in school last year- really struggles w/ jordanian Did have eval 2011 that was suggestive of speech and language issues. Mom still needs to pursue eval. F/u at [facility] in 3 months. [id number] MD DK [employer] [place] [address] [facility] [place] [address] 12/06/2018 10:42:51 12/06/2018 14:55:14 Allergy 911371554 Z91.09 Near syncope 726088362 R 55 had an episode near syncope- will work on breakfast and a snack- work on hydration. Does NOT sound like a seizure. No need for EEG at this point [id number] MD [facility] [employer] [facility] [address] [facility] [place] [address] 03/07/2019 08:23:32 03/07/2019 12:36:51 Well child 374231923 Z00.129 Can stop fluoride now. Will try OTC wart removal for wart on elbow. 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 Will hold off on labs unless unable to decrease weight. Eventual goal is is low 170s. Child atte ntion deficit disorder 447127988 F90.9 Has been off medication during the [...] F/u in 2 months for recheck Asthma 753559697 J45.[address] Vines- started flovent and singulair- f/u w/ him in 2-3 months Allergy to peanut 399322 09 Z91.010 peanut allergy- epipens . Needs f/u w/ enterprise analyst Eczema 04075135 L30.9 has been doing well Adjustment disorder 1722 6007 F43.20 no longer seeing therapist since insurance doesn't cover [facility]- stopped seeing her at the end of the school year. Seems to be doing ok. Disorder of vision 01681 002 H53.9 needs appt w/ Dr antoine Anxiety 56624203 F41.9 improved [id number] Jory Carlos MD [facility] Anitha w [address] [facility] [place] [address] 05/09/2019 11:05:07 05/09/2019 12:18:53 Child attention deficit disorder 390175243 F90.9 On Adderall 30 XR taking school days- grades faily good- jordanian is a bit of a struggle- just had retesting done in school- no LD found but weakness in verbal comp. Will continue 504 plan.Bradley nue melatonin for sleep. f/u in 4 months- sooner if any change.Matt buckley get teacher scales when possible but before next next visit. Complainin g of - postnasal drip 336780744 R09.82 PND past 3 weeks- will try flonase- if not better in 1 week will treat for sinusitis w/ amox Increased body mass index 69990509 Z68.41 excellent weight control- weight down from 192-> 183. Will aim for BMI of 25 ( approx 173 lbs ) [id number] Jory Carlos MD [facility] Anith[address] [facility] [place] [address] 04/08/2020 14:31:27 04/08/2020 16:59:26 Child attention deficit disorder 148571626 F90.9 Last year was on Adderall 30 XR taken school days- Bunny felt like that was an OK dose- Has been off medication this year so far- needs to restart it.Will continue 504 plan.Since online , teacher scales will not be helpful. F/u 2 months. Allergy to peanut 858847 09 Z91.010 peanut allergy- ? epipens - will check. . Needs f/u w/ enterprise analyst ? last visit 2017 Developmen grey academic disorder 9534103 F81.9 has 504 plan now for ADHD. 2019 had retesting done in school- no LD found but weakness in verbal comp. Asthma 669451031 J45.[address] Vines- 04/26- on flovent and singulair- will call to see if he needs a f/u appt Adjustment disorder 1722 6007 F43.20 no longer seeing therapist . Seems to be doing ok. Eczema 16208324 L30.9 has been doing well- not active for over a year Disorder of vision 59050 002 H53.9 needs appt w/ Dr antoine Well child 576874069 Z00 .129 Disc ADILSON. Continue melatonin for sleep. BP high today ( nervos re : immunizati ons. Will recheck at ADD recheck . Meningitis B vaccine before college. Active or passive immunization 002924377 Z23 Childhood obesity 510930 003 Z68.54 BMI continues to increase and [...] management clinic. Exercises education, guidance, and counseling 134221884 Z71.82 Diet education 78837361 Z71.3 Verruca vulgaris 4517308 3 B07.9 will do cryo when returns for ADD recheck [id number] Jory Carlos MD [address] [address] 06/04/2020 10:45:23 06/04/2020 17:37:13 SARS-CoV-2 622541440 U07.1 Viral syndrome 975687617 B34.9 [id number] Jory Carlos MD [address] [address] 06/25/2020 14:22:44 06/25/2020 15:53:15 Child attention deficit disorder 575814057 F90.9 Last year was on Adderall 30 XR taken school days- Bunny felt like that was an OK dose. Restarted Adderall after [facility] a few months ago.504 plan.Since online , teacher scales will not be helpful.Gr ades aren't good but Bunny thinks that is because school is onlineCont inue melatonin school nights.F/u 3 months. Verruca vulgaris 5917662 3 B07.9 Nothing obvious today to cryo- will observe Excessive weight gain 22 3836757 R63.5 BMI >> 99 %- large weight gain over the past Tiny-will refer to weight management . Will limit dairy to 4 servings. Get a portion plate. Go to Choosemypl ate.gov. Goal is 180 lbs. 2200- 2400 cals a day. Will continue daily exercise. Will recheck in 3 month at next visit. Increased blood pressure 05656714 R03.0 Today BP was excellent. [id number] Phong Swenson MD [address] [address] 09/27/2020 15:40:49 09/27/2020 15:55:48 Paronychia of toe 174603979 L03.039 [id number] Jory Carlos MD [facility] Anitha [address] [address] 02/23/2021 08:03:26 02/23/2021 14:21:45 Child attention deficit disorder 540528285 F90.9 ON adderall 30 XR school days- [...] nights.F/u 3 months. Increased body mass index 45279515 Z68.41 Almost 50 lb weight gain over [...] him here. Will repeat BMI labs at [facility] in a few months [id number] Phong Swenson MD [facility] Anitha [address] [address] 03/07/2021 08:31:35 03/08/2021 14:04:40 Tuberculosis screening 361862455 Z11.1 [id number] Jory Carlos MD [facility] [address] 09/29/2021 13:05:18 09/29/2021 17:26:53 History of SARS-CoV-2 0254565116 53952701 Z86.16 Had Covid 2 months ago- back to activity- never had cardiac recheck Anxiety 65845195 F41.9 no longer an issue Child atte ntion deficit disorder 641305948 F90.9 Had been on adderall 30 XR [...] let us know Developmen grey academic disorder [id number] F81.9 Has 504 plan now for ADHD. 2019 had retesting done in school- no LD found but weakness in verbal comp. Allergy to peanut 570590 09 Z91.010 Peanut allergy- epipens - Needs f/u w/ enterprise analyst ? last visit 2017 Asthma [id number] J45.[address] Vines- 04/26- was on flovent and singulair- stopped medication a while ago. Has not needed to use albuterol . Does have it at home. If starts to need it frequently will f/u. Eczema 60391340 L30.9 Not an issue for a while Adjustment disorder 1722 6007 F43.20 no longer seeing therapist . Seems to be doing ok. Disorder of vision 13741 002 H53.9 needs appt w/ opthal- it has been a long time since his last visit- used to wear glasses Verruca vulgaris 1971430 3 B07.9 resolved Childhood obesity 739617 003 Z68.54 BMI is 42.2. Bunny has [...] ( didn't check LFTs ) Hypertriglyceridemia 302 003465 E78.1 last trig 260- will repeat fasting Active or passive immunization 789071365 Z23 Active immunization 1177 9002 Z23 Adult heal th examination 110396442 Z00.00 Disc ADILSON. Continue melatonin for sleep. [id number] Leilani Casey MD [facility] Anitha hogan [address] [place] [address] [place] [phone] 02/08/2022 13:31:01 02/08/2022 14:45:51 Impetigo bullosa 114736692 L01.03 [id number] Jory Carlos MD [facility] Anitha [address] [phone] 05/12/2022 16:34:16 05/12/2022 19:59:36 Acute pharyngitis 314364699 J02.9 [id number] Leilani Casey MD [facility] Anitha [address] [address] 01/16/2024 16:18:16 01/16/2024 17:11:45 Acute pharyngitis 413142984 J02.9 Asthma 417196564 J45.90 9 [id number] ADIEL CASTRO MD [facility] Anitha [address] [address] 03/04/2024 14:07:27 03/05/2024 07:29:27 Adult health examination 096940921 Z00.00 Diet education 71010674 Z71.3 Exercises education, guidance, and counseling 687695397 Z71.82 Screening for disorder 501668818 Z13.31 Abnormal weight gain 161 105304 R63.5 Morbid obesity 393208995 E66.01 Health Concerns Section Related Observation LastModified by Organization Detai ls LastModified Time None Recorded Concern Status LastModified by Organization Details LastModified Time None Recorded Advance Directives Directive None Recorded Payers Insurance Date Sequence Insurance Name Policy Number Policy Guerrero Covered Member ID Guerrero Member ID Guarantor Name 10/02/2024 1 [facility] (MEDICAID HMO) [id number] Bunny Russo [id number] Rosalie Koroma 10/02/2024 1 [facility] - PLAN TYPE 3 (MEDICAID HMO) Bunny Martins [id number] Rosalie Koroma 10/02/2024 1 [facility] NET PLAN (MEDICAID HMO) [id number] Bunny Martins [id number] Rosalie Koroma 05/14/2007 1 *SELF PAY* Paulino Koroma 11/18/2024 2 [place] [facility] Bunny Russo [id number] Rosalie Koroma 11/18/2024 1 [id number] Bunny Russo [id number] Rosalie Koroma Notes Date Note Type [...] Meds taken. No sick contacts. Returned from [employer] 3 days ago. Has just started using antibacterial soap. Has been swimming in ocean. Lesions started BUEs - R antecub fossa area and L axilla but not where hair is present, now also on L lower abd/L popliteal fossae/R cheek and R eyebrow Leilani Casey MD [address] [place] [address], , [facility] 02/08/2022 14:06:26 05/12/2022 text/html RS [...] yesterday.Brother w/ similar sx. Jory Carlos MD [address] [place] [address], , [facility] 05/12/2022 19:46:33 01/16/2024 text/html RS Sick Visit Narrative HistoryReported bypatient.Notes:Pt is here for a ST x 4 days.Dry cough, Congestion x 4 days.Intermittent SOB noticed 2 days ago. Hasn't been using inhaler.AfebrileNo sx of N/V/D, No FAN, No ear pain, No body aches, Afebrile.OTC meds Taken.Girlfriend dx w/ PNA 2 wks ago.Needs new Rx for inhaler. Leilani Casey MD [address] [place] [address], [phone], [facility] 01/16/2024 16:56:22
== END 2025-01-14 13:06 | disposition home or self-care (01) ==
LOC: HO.HBST 12:11
PROVIDERS: Visit Provider Counselor Mental Health
DX: F90.9 Attention-deficit hyperactivity disorder, unspecified type (principal); F41.9 Anxiety disorder, unspecified; Z71.89 Other specified counseling
CPT/HCPCS: 90834

== ENCOUNTER 2025-01-15 10:35 | Day surgery (SDC) | payer OTHER, SELFPAY ==
[2025-01-12 14:33] VITALS: BMI 46.4
--- NOTE | 2025-01-14 09:16 | HO.ANESPROP2 ---
Documented by User: Tiara Baer NP 01/14/25 09:16 HPI - Anesthesia Eval Consult details Narrative: 19yo M for Upper Endoscopy [facility] Active Problems Active Problems: All Active Problems Vitamin D deficiency (Acute) Asthma (Acute) Epilepsy (Acute) Anxiety (Acute) ADHD (Acute) Morbid obesity (Acute) Past Medical History Medical History Anxiety Morbid obesity Blocked tear duct, congenital Epilepsy ADHD Asthma Social History Social History Are you a primary foster care therapist to a significant other at home: No Do you presently have visiting nurse or other home services: No Patient Tobacco Use Status: Never used Tobacco Second Hand Smoke Exposure: No Meds Allergies Allergy/AdvReac Type Severity Reaction Status Date / Time peanut Allergy Mild UNKN Verified 10/24/24 10:09 Home Medications ?Medication ?Instructions ?Recorded ?Confirmed ?Last Taken ?Type albuterol sulfate 90 mcg/actuation 2 puff inhalation Q6H PRN Wheezing 10/24/24 01/15/25 Unknown History aerosol inhaler Exam Height,Weight and Vital Signs: Height 5 ft 11 in Weight 151.046 kg Assessment and Plan Assessment Anesthesia Assessment: Chart Reviewed Documented by User: Miracle Cowart MD 01/15/25 12:13 [facility] Past Medical History Medical History Anxiety Morbid obesity Blocked tear duct, congenital Epilepsy ADHD Asthma Surgical History History of Problems with Anesthesia: No Social History Social History Are you a primary foster care therapist to a significant other at home: No Do you presently have visiting nurse or other home services: No Patient Tobacco Use Status: Never used Tobacco Second Hand Smoke Exposure: No Meds Allergies Allergy/AdvReac Type Severity Reaction Status Date / Time peanut Allergy Mild UNKN Verified 10/24/24 10:09 Home Medications ?Medication ?Instructions ?Recorded ?Confirmed ?Last Taken ?Type albuterol sulfate 90 mcg/actuation 2 puff inhalation Q6H PRN Wheezing 10/24/24 01/15/25 Unknown History aerosol inhaler Exam Airway Mallampati Class: III TM Dist: >3cm Neck ROM: Full Loose/Missing/Broken Teeth: No Heart: RRR Lungs: CTA Assessment and Plan Assessment Anesthesia Assessment: Anesthesia Plan Discussed Final Anesthetic Review History of Problems with Anesthesia: No NPO: Yes ASA Class: III Final Preanesthetic Review: Meds/Allgs Chart Reviewed, Consent Obtained/Reviewed and Anes Risks/Benef Reviewed Patient Risk: Intermediate Procedure Risk: Intermediate Anesthetic Plan Anesthetic Plan: MAC: Disposition: Standard PACU
[2025-01-15 10:51] VITALS: BP 140/86; PULSE 106; RESP 16; TEMP 36.7; O2SAT 100
[2025-01-15] MEDS: Lactated Ringers 1,000 ML 80 ML IVCONT (10:57)
--- NOTE | 2025-01-15 11:57 | MHC.SHP ---
Pre-Procedural Eval Section A - 24 Hr Update-Section A only Date of Service: 01/15/25 The patient is an INPATIENT: No The patient has been examined within 24 hours of the surgical procedure. The History & Physical has been completed within 30 days and I have reviewed it.: Yes Section B - Complete if H&P > 30 days Chief Complaint: Morbid (severe) obesity due to excess calories Relevant Family History (Specify if Yes): No Relevant Social History: None Present Medications: None Medical History: No relevant PMH History of Previous Operations: No relevant previous surgery Allergies: Allergies Allergy/AdvReac Type Severity Reaction Status Date / Time peanut Allergy Mild UNKN Verified 10/24/24 10:09 Review of Systems Sugical H&P ROS: Negative: Constitution, Cardiovascular, Respiratory, Neurological, Psychiatric, Hem-Onc, Allergic/Immunologic, Gastrointestinal, Genitourinary, Musculoskeletal, Integumentary, Endocrine and Eyes/Ears/Nose/Throat Exam Surgical H&P Exam: Normal: HEENT, Normal: Heart, Normal: Lungs, Normal: Extremities, Normal: Abdomen, Normal: Skin and Normal: Neurological Plan Diagnosis/Plan: Unchanged (EGD to assess the stomach's anatomy. Risks of bleeding and perforation were discussed with the patient and he is in agreement with the plan.) I have reviewed the history and physical and performed a pertinent physical examination on my patient. No changes have occurred unless specified. Time Spent With Patient Time: Total time managing care of this patient today ____ minutes.
--- NOTE | 2025-01-15 11:58 | PM.OP ---
Brief Operative Note Date of Service: 01/15/25 Pre-op diagnosis: Morbid obesity Post-op diagnosis: same (& small diaphragmatic hernia) Procedure: PROCEDURE DATE: 01/15/2025 PREOPERATIVE DIAGNOSIS: Morbid obesity POSTOPERATIVE DIAGNOSIS: ?Same as above. 1) small hiatal hernia PROCEDURE: Gnckiiex-nsqtka-hjqrjiyqgyyd with biopsies Surgeon: ?Joao Still M.D.. Ph.D. Hospice Home Care Coordinator: None ? Anesthesia: IV sedation Estimated blood loss: ?Minimal FINDINGS AND PROCEDURE: ? OPERATIVE INDICATIONS: ?The patient is a 19 year old male known to me who is interested in bariatric surgery. Based on this information I recommended an upper endoscopy to evaluate the patient's symptoms. Risks and complications of the surgery were discussed with the patient in advance particularly the possibility of perforation or bleeding that may require surgical intervention. The patient understood the risks and was in agreement with the plan. ? PROCEDURE: After informed consent was obtained by the patient, the patient was ?transferred to the Operating Room and was placed in the supine position.? After successful induction of IV sedation, a mouth block was inserted and the patient was placed in the left lateral decubitus position. An upper endoscopy was performed next, the oropharynx and esophagus appeared within the normal limits. There was a small fixed 2-3cm hiatal hernia. The z-line was smooth. Two biopsies were obtained from the distal esophagus 2-3 cm proximal to the GE junction and two additional biopsies from the GE junction. The stomach was entered and it appeared to be of normal size. There was no gastritis. There was no stricture or ulcer. A biopsy was obtained from the gastric fundus and antrum. No significant bleeding was noted from any of the biopsy sites. Retroflexion of the scope confirmed the presence of a diaphragmatic hernia. The scope was then advanced into the duodenum which appeared to be normal as well. At that point the duodenum ?and the stomach were decompressed and the scope was withdrawn from the patient's mouth. The patient extubated and was transferred in stable condition to the Recovery Room for further care. I was present and performed all steps of the procedure. There were no residents to assist with this case. Joao Still M.D., Ph.D. Surgeon: Rufus Still MD Anesthesia: MAC Was an Hospice Home Care Coordinator used for this Procedure?: No Estimated blood loss (mL): 0 IV fluids (mL): 400 Urine output (mL): 0 (No Plok to record output) Pathology: other (1) antrum x1, 2) fundus x1, 3) GE junction x2, 4) distal esophagus x2) Condition: stable Disposition: PACU
[2025-01-15 12:40] VITALS: BP 129/87; PULSE 101; RESP 18; TEMP 36.4; O2SAT 98
[2025-01-15 12:55] VITALS: BP 134/86; PULSE 80; RESP 18; O2SAT 98
[2025-01-15 13:10] VITALS: BP 147/93; PULSE 76; RESP 18; O2SAT 98
[2025-01-15 13:25] VITALS: BP 139/95; PULSE 76; RESP 18; TEMP 36.4; O2SAT 98
== END 2025-01-15 13:58 | disposition home or self-care (01) ==
PROVIDERS: Visit Provider Surgery
PROC: 0DJ08ZZ Inspection of Upper Intestinal Tract, Via Natural or Artificial Opening Endoscopic (ICD-10-PCS; CPT 43235; principal; 2025-01-15 13:10)
DX: E66.01 Morbid (severe) obesity due to excess calories (principal); Z68.42 Body mass index [BMI] 45.0-49.9, adult; K44.9 Diaphragmatic hernia without obstruction or gangrene; K20.80 Other esophagitis without bleeding; J45.909 Unspecified asthma, uncomplicated; G40.909 Epilepsy, unspecified, not intractable, without status epilepticus; F90.9 Attention-deficit hyperactivity disorder, unspecified type; F41.9 Anxiety disorder, unspecified; Z91.010 Allergy to peanuts; Z79.899 Other long term (current) drug therapy
CPT/HCPCS: 43239; 88305; 88313; 88342; J2250; J2704

== ENCOUNTER → 2025-01-15 10:35 | Outpatient (BNV) | payer OTHER, SELFPAY | PROVIDERS: Visit Provider Surgery | DX: K44.0 Diaphragmatic hernia with obstruction, without gangrene (principal) | CPT/HCPCS: 43239 ==

== ENCOUNTER 2025-01-26 10:00 | Outpatient (REF) | payer OTHER, SELFPAY ==
--- NOTE | ~2025-01-26 | FL_ITS ---
EXAMINATION: XR FLUOROSCOPY UPPER GI SERIES CLINICAL INFORMATION: Morbid obesity due to excess calories. Patient complaining of mild reflux type symptoms. COMPARISON: None TECHNIQUE: Fluoroscopic air contrast upper GI examination was performed utilizing standard techniques with thin and thick barium and effervescent granules. Numerous spot images were obtained. Several fluoroscopic image hold cine sequences were also obtained. FINDINGS: UPPER GI SERIES: Lateral cine images of the oropharynx and hypopharynx demonstrate normal swallow mechanism with normal epiglottic inversion and soft palate elevation. No laryngeal penetration, glottic or subglottic aspiration identified. No nasopharyngeal reflux present. Hypopharyngeal structures appear normal without evidence of mass or diverticulum. There was no significant cricopharyngeal achalasia. Dual and single contrast images of the esophagus demonstrate normal caliber, contour, and mucosal pattern. No evidence of stricture, mass, or ulcerations identified. Esophageal peristalsis was normal. No evidence of hiatus hernia identified. No significant gastroesophageal reflux was seen during the course of the examination and on reflux views. Dual contrast and single contrast images of the stomach demonstrated normal contour and mucosal pattern without evidence of mass, ulceration, or other abnormality. Contrast freely passed into the gastric antrum and duodenal bulb without delay. Single and air-contrast images of the duodenal bulb demonstrate no abnormality. The duodenal sweep has a normal appearance, course, and mucosal fold appearance. FLUOROSCOPY TIME: 2 minutes, 12 seconds Number of Spot Images:8 Number of cines obtained: 16 DOSE AREA PRODUCT: 4042 uGy-m2 (microgray-meter squared) FL/FL upper GI w air IMPRESSION: 1. Normal upper GI examination. Electronically signed by: Jeremy Goins MD 01/26/2025 11:12 AM EDT
--- OUTSIDE RECORDS SUMMARY | 2025-01-26 10:45 | XMS_ITS ---
Author Name [facility] Organization Unknown History of Medication Use Medication Directions Dispensed Refills Start Date End Date Stat us Adderall XR 20 mg capsule,extended release Take 1 capsule every day by oral route for 30 days. 12/12/2017 8 completed desonide 0.05 % topical cream apply bid to area (face) 08/22/2011 active Zithromax 200 mg/5 mL oral suspension Take 7.5 ml PO day one, then 3.25 ml PO day 2-5 06/19/2011 active Loprox 0.77 % topical gel Apply to the affected and surrounding areas of skin by topical route 2 times per day in the morning and evening 09/26/2010 active ketoconazole 2 % topical cream Apply to the affected area(s) by topical route once daily for 2 weeks 09/07/2010 active Amoxil 250 mg/5 mL oral suspension Take 10 mL twice a day by oral route for 10 days. 09/13/2009 0 completed montelukast 10 mg tablet TAKE 1 TABLET BY MOUTH EVERY DAY IN THE EVENING 0 completed hydrocortisone valerate 0.2 % oint 03/07/20 1 9 active dextroamphetamine-am phetamine 5 mg tablet Take 1 tablet every day by oral route for 30 days. 8 completed epinephrine 0.3 mg/0.3 mL injection, auto-injector USE NEEDED FOR ANAPHYLAXIS- MAY REPEAT IN 5-15 MIN active mupirocin 2 % topical ointment Apply a small amount to the affected area by topical route 3 times per day x 7 days active Pulmicort Flexhaler 180 mcg/actuation breath activated active cephalexin 500 mg capsule Take 1 capsule twice a day by oral route for 10 days. Take 1 capsule twice a day by oral route for 10 days. completed Allergies Allergen Reaction Severity Comment Documented Date Source Statu s PEANUT CTHLPVP PEANUT ALLERGENIC EXTRACT CTHLPV P active PHENOBARBITAL VOMITING [facility] Problems Problem Status Onset Date Problem Type Date of Resoluti on Source Developmental academic disorder active ProblemAct [facility] History of SARS-CoV-2 active 2020-06-04 ProblemAct [facility] Allergy to peanut active 2019-03-07 ProblemAct [facility] Anxiety active 2019-03-07 ProblemAct [facility] Child attention deficit disorder active 2016-09-23 ProblemAct [facility] Increased body mass index active 2017-12-24 ProblemAct [facility] Adjustment disorder active ProblemAct [facility] Asthma active ProblemAct [facility] Hypertriglyceridemia active 2021-09-24 ProblemAct [facility] Disorder of vision active 2016-09-23 ProblemAct [facility] Immunizations Vaccine Date Source Lot Number Status Hep A, ped/adol, 2 dose 09/29/2021 [facility] [id number] c ompleted meningococcal B, OMV 09/29/2021 [facility] [id number] comp leted COVID-19, mRNA, LNP-S, PF, 30 mcg/0.3 mL dose 09/06/2021 [facility] completed COVID-19, mRNA, LNP-S, PF, 30 mcg/0.3 mL dose 12/24/2020 C [facility] completed COVID-19, mRNA, LNP-S, PF, 30 mcg/0.3 mL dose 12/03/2020 [facility] completed Hep A, ped/adol, 2 dose 04/08/2020 [facility] [id number] c ompleted Influenza, split virus, quadrivalent, PF 04/08/2020 [facility] P [id number] completed meningococcal MCV4P 04/08/2020 [facility] [id number] compl eted HPV9 12/08/2016 [facility] [id number] completed HPV9 11/17/2015 [facility] [id number] completed HPV9 09/14/2015 [facility] [id number] completed meningococcal MCV4P 09/11/2014 [facility] [id number] compl eted Tdap 09/11/2014 [facility] [id number] completed DTaP, unspecified formulation 09/29/2008 [facility] completed IPV 09/29/2008 [facility] completed varicella 09/29/2008 [facility] completed MMR 09/25/2007 [facility] completed DTP 03/24/2005 [facility] completed IPV 03/24/2005 [facility] completed Hib, unspecified formulation 12/02/2004 [facility] completed MMR 12/02/2004 [facility] completed pneumococcal conjugate PCV 7 09/07/2004 [facility] completed varicella 09/07/2004 [facility] completed Hep B, unspecified formulation 06/16/2004 [facility] completed DTP 03/16/2004 [facility] completed Hib, unspecified formulation 03/16/2004 [facility] completed pneumococcal conjugate PCV 7 03/16/2004 [facility] completed DTP 01/06/2004 [facility] completed Hib, unspecified formulation 01/06/2004 [facility] completed IPV 01/06/2004 [facility] completed pneumococcal conjugate PCV 7 01/06/2004 [facility] completed DTP 2003 [facility] completed Hib, unspecified formulation 2003 [facility] completed IPV 2003 [facility] completed pneumococcal conjugate PCV 7 2003 [facility] completed Hep B, unspecified formulation 2003 [facility] completed Hep B, unspecified formulation 2003 [facility] completed Encounters Encounter Type Encounter Reason Primary Diagnosis Location Date Ambulatory Acute pharyngitis, unspecified Acute pharyngitis, unspecified [facility] 03/04/2024 Ambulatory Acute pharyngitis, unspecified Acute pharyngitis, unspecified [facility] 01/16/2024 Ambulatory [facility] 05/12/2022 Ambulatory [facility] 02/08/2022 Ambulatory [facility] 09/29/2021 Care Team Organization Name Specialty Phone Email Start Date End Da te [facility] 05/10/2023 [facility] 03/30/2023 024 [facility] 2021 [facility] 202005/12/2022
--- OUTSIDE RECORDS SUMMARY | 2025-01-26 10:45 | XMS_ITS | Data Portability ---
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 18668057 using westcort cream qd-will increase to bid. Continue moisturize r Asthma 095219865 Just started the flovent-re cent visit Dr Vines-f/u in 07/22 Allergy 293310759 ? trou ble w/peanuts- will give epipen to have and refer to industrial aerial installer Abnormal weight gain 363536131 Continues to do well-BMI now only @ 88%. Does have appt w/wgt management next month. Will f/u here prn. [id number] Jory Carlos MD [address] [address] 09/12/2013 13:11:48 09/12/2013 15:26:49 Well child 126115095 Adjustment disorder 55574878 Was seen at [facility] by Suni Lucas-saw X 1 year-wasn' t helpful-wi ll be starting w/a new therapist- Allergy 526745456 ? trou ble w/peanuts- has epipen still needs to see industrial aerial installer Asthma 610817048 On flovent-rl ast visit Dr Vines 03/2013-nee ds f/u appt Attention deficit hyperactivity disorder, combined type 74507548 Was seen Psychiatry at [facility]-w as on stimulant- was on meds x 2-4 weeks-only tried 1 medication -mom to contact them again-if they won't see him I will need the records and will f/u here for eval. 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 Eczema 36255282 using westcort cream prn Continue moisturize r Seizure 03510423 Dr Light- no seizures in 2 years-disc harged him 2011 Childhood obesity 241162016 Large wgt gain-over last 6 months-BMI @ 93%-next appt w/wgt mangement in 3 months [id number] Leilani Casey MD [address] [address] 10/13/2013 18:03:54 10/13/2013 18:14:04 Acute pharyngitis 249899489 [id number] Jory Carlos MD [address] [address] 06/11/2014 10:16:18 06/11/2014 11:27:47 Acute pharyngitis 031155208 Concussion 29711036 [id number] Jory Carlos MD [address] [address] 09/11/2014 13:10:37 09/11/2014 16:50:17 Well child 278946316 will defer HPV for now Asthma 060473063 On flovent- sees Dr Vines-will start albuterol before exercise Allergy 751761357 ? trou ble w/peanuts- has epipen still needs to see industrial aerial installer Childhood obesity 922292082 has appt w/weight management scheduled- will defer labs to them Adjustment disorder 97910580 sees therapist at [facility] Attention deficit hyperactivity disorder, combined type 61902599 Seen by Psychiatry at [facility]- has been tried on medication -has 504 plan Developmen grey academic disorder 6763811 Had testing thru [facility]-d id recommend IEP 10/2010--fan s 504 plan now for ADHD. Eczema 51771497 using westcort cream prn Continue moisturize r Seizure 74443226 Dr Light- no seizures in 3 years-disc harged him 2011 [id number] Chin Hi MD [address] [address] 09/22/2014 16:02:17 09/22/2014 16:45:07 Asthma 858370075 Viral syndrome 302689608 [id number] Jory Carlos MD [address] [address] 4 12/09/2014 16:00:04 12/09/2014 17:14:11 Impetigo bullosa 641464033 [id number] Jory Carlos MD [address] [address] 4 01/06/2015 15:28:43 01/06/2015 17:16:06 Injury of finger 11700243 [id number] Jory Carlos MD [address] [address] 4 03/19/2015 16:32:47 03/19/2015 17:44:26 Acute pharyngitis 933234478 Asthma 331710341 restart flovent [id number] Jory Carlos MD [address] [address] 4 04/28/2015 15:30:59 04/28/2015 17:29:31 Acute pharyngitis 667889284 J02.9 Knee pain 49541590 M25.5 [address] knee pain [id number] Chin Hi MD [facility] [address] [address] 08/18/2015 14:50:17 08/18/2015 15:24:28 Acute pharyngitis 668516506 J02.9 Asthma 249330609 J45.90 9 Upper resp iratory infection 71932582 J06.9 [id number] Jory Carlos MD [address] [address] 09/14/2015 11:00:34 09/14/2015 12:55:47 Active or passive immunization 272824631 Z23 Well child 979869712 Z00 .129 Allergy 976792468 Z91.09 ? trouble w/peanuts- has epipen still needs to see industrial aerial installer Asthma 088111425 J45.90 9 on flovent-se es Dr Vines-last visit ? 03/2014-mila nguyen make f/u appt Adjustment disorder 1722 6007 F43.20 stopped seeing therapist at [facility] approx 3 months ago--would n't talk w/therapis t. Behavior is better Attention deficit hyperactivity disorder, combined type 06904964 F90.2 Seen by Psychiatry at [facility]- in the past-has been tried on medication X 1- -has 504 plan Developmen grey academic disorder 5884272 F81.9 has 504 plan now for ADHD. Eczema 79168686 L30.9 using westcort cream prn Continue moisturize r & dove soap Knee pain 43621199 M25.5 67 saw ortho- not an issue now Childhood obesity 833319 003 Z68.54 saw wgt management x 1- -BMI stable @ 95%-will return to weight management -will get labs done there [id number] Sophia Han MD [address] [address] 4 09/24/2015 16:08:06 09/24/2015 17:05:22 Acute pharyngitis 504623099 J02.9 Streptococ amilcar sore throat 82008564 J02.0 [id number] Jory Carlos MD [address] [address] 4 11/17/2015 15:27:29 11/17/2015 15:44:17 Active or passive immunization 799956470 Z23 [id number] Jory Carlos MD [facility] [address] [place] [address] 4 05/26/2016 15:45:21 05/26/2016 17:15:59 Asthma 729500436 J45.[address] Vines-? still needs to be on flovent ( last filled 07/2014 ) Low back pain 277546018 M54.5 pelvic rim pain posteriorl y w/running- x 2 weeks-? muscular- vs SI joint-will stretch before running-tr y ibuprofen- if still an issue in a few weeks will refer to sports medicine [id number] Jory Carlos MD [facility] [address] [place] [address] 4 06/07/2016 14:01:52 06/07/2016 17:19:36 Child attention deficit disorder 665666599 F90.9 [id number] Jory Carlos MD [address] [address] 4 07/27/2016 12:41:57 07/27/2016 14:35:53 Child attention deficit disorder 381703902 F90.9 currently on Adderall 10 XR daily-pare nt scales w/ small improvemen t-do not have social work lecturer which had the most impairment . Will get that now and increase to 20 mg. Will f/u by phone in 2 weeks. Can use only school days now. Watch weight since has had some loss.Get repeat scales before next visit.Mom to talk with school about testing for LD. Did have neuropsych testing in 2010 through [facility] that had some issues demonstrat ed. 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 He does have some itrritabil ity after school and has some trouble getting homework done. 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 Will schedule dedicated ADD recheck after that. [id number] Jory Carlos MD [facility] w [facility] [place] [address] 12/08/2016 11:26:17 12/08/2016 13:31:52 Active or passive immunization 450694382 Z23 Well child 000458621 Z00 .129 will test for LD next year. EXcellent weight control-al though BMI still > 85%-likely combinatio n ADD meds and healthy eating. Will be following at ADD rechecks. Child atte ntion deficit disorder 949466169 F90.9 JUst saw this week-ramiro skelton on Adderall 20 XR daily, teacher scales w/ much improvemen t except ethiopian which is worse.Vick oleary also does not like that teacher. He does have some irritabili ty after school and has some trouble getting homework done. Will try Adderall 5 mg after school-can increase to 10 mg.Can continue to use only school days now. Will be off for the summer. Will meet at the end of the summer /beginning or the school year. Allergy 274231434 Z91.09 ? trouble w/peanuts- has epipen still needs to see industrial aerial installer- appt 02/2017 Adjustment disorder 1722 9777 F43.20 stopped seeing therapist at [facility] 2015--woul dn't talk w/therapis t. Behavior is better Developmen grey academic disorder 8962408 F81.9 has 504 plan now for ADHD. Asthma 930855708 J45.[address] Vines 2013-only uses when exercise for a long time-will use 2 puffs before exercise -if doesn't work will f/u. MDI demonstrat ed and info sheet given. Eczema 73547217 L30.9 resolved [id number] Jory Carlos MD [facility] [place] [place] [address] 05/23/2017 10:14:21 05/23/2017 11:53:15 Child attention deficit disorder 617251956 F90.9 Currently on Adderall 20 XR school days. Teacher scales are great!!! and doing well in school w/ tutoring for ethiopian. No trouble getting homework done now after school. Got crabby w/ Adderall 5 mg after school. Has 504 plan. Behavior is better. Weight increase likely 2nd to being off medication for the summer. Goals met. Will still pursue the eval for LD since needing outside help to be successful . Will remeet in 3 months. Needs to have something for lunch. Asthma 124777687 J45.90 9 will use before basketball Seborrheic dermatitis of scalp 004792342 L21.0 diffuse scaling-us e dandruff shampoo [id number] Jory Carlos MD [facility] [address] [place] [address] 10/10/2017 10:25:58 10/10/2017 12:02:25 Child attention deficit disorder 411153995 F90.9 Currently on Adderall 20 XR school days. . Got crabby w/ Adderall 5 mg after school. Has 504 plan.Grade s are excellent! !! Goals met. Never pursued eval for LD since was doing so well in school. Will remeet in 2 months. at [facility]. Will meet after the summer after school has been in session for a few months & get teacher scales before then. [id number] Jory Carlos MD [facility] [employer] [address] 01/03/2018 14:46:38 01/03/2018 17:50:07 Well child 590774952 Z00.129 Mom to get [employer] book Re: Teenagers Overweight in childhood 360969298 Z68.53 increase in BMI to 93%-discus sed healthy eating and exercise- goal will be to keep weight the same-will f/u at next ADD checK Disorder of vision 93232 002 H53.9 no glasses-mo m to check to see when he needs his next appt Child atte ntion deficit disorder 591229796 F90.9 Currently on Adderall 20 XR school [...] & get teacher scales before then. Allergy 771528670 Z91.09 saw industrial aerial installer 04/24-has madeleine ds f/u 04/25 Adjustment disorder 1722 6007 F43.20 stopped seeing therapist at [facility] 2016--woul dn't talk w/therapis t. Behavior is better-see ms like typical teen Developmen grey academic disorder 6617497 F81.9 has 504 plan now for ADHD. Asthma 265509702 J45.90 9 will use before basketball -MDI demonstrat ed ( had poor technique) Eczema 36568458 L30.9 still an issue-west yannick prn Verruca vulgaris 2752461 3 B07.9 OTC meds 1st-f/u cryo prn [id number] Jory Carlos MD [facility] [place] [place] [address] 03/20/2018 15:53:33 03/20/2018 17:29:15 Child attention deficit disorder 352118754 F90.9 Currently on Adderall 20 XR school [...] medication . Will continue melatonin for sleep. [id number] Jory Carlos MD [facility] [employer] [facility] [employer] [place] [address] 06/21/2018 10:44:58 06/21/2018 12:25:12 Child attention deficit disorder 207004278 F90.9 Currently on Adderall 30 XR school days.Incre ased from 20XR this school year. Has 504 plan. Melatonin works well for sleep. Discussed limiting screen time 1.5 hrs before bedtime to help with sleep issues. . Teacher's scales are all good-excep t some impairment noted in social studies. Grades however are not good in ethiopian or social studies. Bunny is not sure [...] in school last year- really struggles w/ ethiopian and social studies this this year in 8th grade. Mom to pursue now. Did have eval 2011 that was suggestive of speech and language issues. Adjustment disorder 1722 6007 F43.20 Sees therapist at school-jo tom behavior- sees her weekly- just started- re: behavior at home Verruca vulgaris 7275805 3 B07.9 wart-cryo today. Info sheet given. [id number] MD DK George [facility] [employer] [place] [place] [address] 10/04/2018 16:11:54 10/04/2018 17:25:22 Child attention deficit disorder 000754064 F90.9 Currently on Adderall 30 XR school [...] in school last year- really struggles w/ ethiopian Did have eval 2011 that was suggestive of speech and language issues. Mom still needs to pursue eval. F/u at [facility] in 3 months. [id number] MD DK [facility] w [address] [facility] [employer] [place] [address] 12/06/2018 10:42:51 12/06/2018 14:55:14 Allergy 033744442 Z91.09 Near syncope 303099687 R 53 had an episode near syncope- will work on breakfast and a snack- work on hydration. Does NOT sound like a seizure. No need for EEG at this point [id number] MD [facility] [address] [facility] [place] [address] 03/07/2019 08:23:32 03/07/2019 12:36:51 Well child 450864802 Z00.129 Can stop fluoride now. Will try OTC wart removal for wart on elbow. 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 Will hold off on labs unless unable to decrease weight. Eventual goal is is low 170s. Child atte ntion deficit disorder 700575641 F90.9 Has been off medication during the [...] F/u in 2 months for recheck Asthma 202221367 J45.[address] Vines- started flovent and singulair- f/u w/ him in 2-3 months Allergy to peanut 345902 09 Z91.010 peanut allergy- epipens . Needs f/u w/ industrial aerial installer Eczema 96178909 L30.9 has been doing well Adjustment disorder 1722 6007 F43.20 no longer seeing therapist since insurance doesn't cover [place] [facility]- stopped seeing her at the end of the school year. Seems to be doing ok. Disorder of vision 41825 002 H53.9 needs appt w/ Dr antoine Anxiety 90082431 F41.9 improved [id number] Jory Carlos MD [facility] w [address] [facility] [place] [address] 05/09/2019 11:05:07 05/09/2019 12:18:53 Child attention deficit disorder 901345029 F90.9 On Adderall 30 XR taking school days- grades faily good- ethiopian is a bit of a struggle- just had retesting done in school- no LD found but weakness in verbal comp. Will continue 504 plan.Bradley nue melatonin for sleep. f/u in 4 months- sooner if any change.Matt buckley get teacher scales when possible but before next next visit. Complainin g of - postnasal drip 471657594 R09.82 PND past 3 weeks- will try flonase- if not better in 1 week will treat for sinusitis w/ amox Increased body mass index 72937700 Z68.41 excellent weight control- weight down from 192-> 183. Will aim for BMI of 25 ( approx 173 lbs ) [id number] Jory Carlos MD [facility] [address] [facility] [place] [address] 04/08/2020 14:31:27 04/08/2020 16:59:26 Child attention deficit disorder 043097523 F90.9 Last year was on Adderall 30 XR taken school days- Bunny felt like that was an OK dose- Has been off medication this year so far- needs to restart it.Will continue 504 plan.Since online , teacher scales will not be helpful. F/u 2 months. Allergy to peanut 712758 09 Z91.010 peanut allergy- ? epipens - will check. . Needs f/u w/ industrial aerial installer ? last visit 2017 Developmen grey academic disorder 6874559 F81.9 has 504 plan now for ADHD. 2019 had retesting done in school- no LD found but weakness in verbal comp. Asthma 935871638 J45.[address] Vines- 04/26- on flovent and singulair- will call to see if he needs a f/u appt Adjustment disorder 1722 6007 F43.20 no longer seeing therapist . Seems to be doing ok. Eczema 00529021 L30.9 has been doing well- not active for over a year Disorder of vision 32918 002 H53.9 needs appt w/ Dr antoine Well child 843413356 Z00 .129 Disc ADILSON. Continue melatonin for sleep. BP high today ( nervos re : immunizati ons. Will recheck at ADD recheck . Meningitis B vaccine before college. Active or passive immunization 966092199 Z23 Childhood obesity 170304 003 Z68.54 BMI continues to increase and [...] management clinic. Exercises education, guidance, and counseling 806339947 Z71.82 Diet education 23296993 Z71.3 Verruca vulgaris 4382926 3 B07.9 will do cryo when returns for ADD recheck [id number] Jory Carlos MD [address] [address] 06/04/2020 10:45:23 06/04/2020 17:37:13 SARS-CoV-2 540412925 U07.1 Viral syndrome 569795606 B34.9 [id number] Jory Carlos MD [address] [address] 06/25/2020 14:22:44 06/25/2020 15:53:15 Child attention deficit disorder 124029264 F90.9 Last year was on Adderall 30 XR taken school days- Bunny felt like that was an OK dose. Restarted Adderall after [facility] a few months ago.504 plan.Since online , teacher scales will not be helpful.Gr ades aren't good but Bunny thinks that is because school is onlineCont inue melatonin school nights.F/u 3 months. Verruca vulgaris 3378083 3 B07.9 Nothing obvious today to cryo- will observe Excessive weight gain 22 0430823 R63.5 BMI >> 99 %- large weight gain over the past Tiny-will refer to weight management . Will limit dairy to 4 servings. Get a portion plate. Go to Choosemypl ate.gov. Goal is 180 lbs. 2200- 2400 cals a day. Will continue daily exercise. Will recheck in 3 month at next visit. Increased blood pressure 51634866 R03.0 Today BP was excellent. [id number] Phong Swenson MD [address] [address] 09/27/2020 15:40:49 09/27/2020 15:55:48 Paronychia of toe 059668909 L03.039 [id number] Jory Carlos MD [facility] Anitha [address] [address] 02/23/2021 08:03:26 02/23/2021 14:21:45 Child attention deficit disorder 598833373 F90.9 ON adderall 30 XR school days- [...] nights.F/u 3 months. Increased body mass index 89888745 Z68.41 Almost 50 lb weight gain over [...] him here. Will repeat BMI labs at [facility] in a few months [id number] Phong Swenson MD [facility] Anith[address] [address] 03/07/2021 08:31:35 03/08/2021 14:04:40 Tuberculosis screening 131699240 Z11.1 [id number] Jory Carlos MD [facility] [address] 09/29/2021 13:05:18 09/29/2021 17:26:53 History of SARS-CoV-2 8963983058 35026667 Z86.16 Had Covid 2 months ago- back to activity- never had cardiac recheck Anxiety 81925766 F41.9 no longer an issue Child atte ntion deficit disorder [id number] F90.9 Had been on adderall 30 XR [...] let us know Developmen grey academic disorder 7841027 F81.9 Has 504 plan now for ADHD. 2019 had retesting done in school- no LD found but weakness in verbal comp. Allergy to peanut 706109 09 Z91.010 Peanut allergy- epipens - Needs f/u w/ industrial aerial installer ? last visit 2017 Asthma [id number] J45.[address] Vines- 04/26- was on flovent and singulair- stopped medication a while ago. Has not needed to use albuterol . Does have it at home. If starts to need it frequently will f/u. Eczema 09718681 L30.9 Not an issue for a while Adjustment disorder 1722 6007 F43.20 no longer seeing therapist . Seems to be doing ok. Disorder of vision 18900 002 H53.9 needs appt w/ opthal- it has been a long time since his last visit- used to wear glasses Verruca vulgaris [id number] 3 B07.9 resolved Childhood obesity 680609 003 Z68.54 BMI is 42.2. Bunny has [...] ( didn't check LFTs ) Hypertriglyceridemia 302 561611 E78.1 last trig 260- will repeat fasting Active or passive immunization 067339511 Z23 Active immunization 2377 9002 Z23 Adult heal th examination 519915834 Z00.00 Disc ADILSON. Continue melatonin for sleep. [id number] Leilani Casey MD [facility] Anitha hogan [address] [place] [address] [place] [phone] 02/08/2022 13:31:01 02/08/2022 14:45:51 Impetigo bullosa 870957975 L01.03 [id number] Jory Carlos MD [facility] Anitha [address] [phone] 05/12/2022 16:34:16 05/12/2022 19:59:36 Acute pharyngitis 539912037 J02.9 [id number] Leilani Casey MD [facility] Anitha [address] [phone] 01/16/2024 16:18:16 01/16/2024 17:11:45 Acute pharyngitis 458959836 J02.9 Asthma 928989697 J45.90 9 [id number] ADIEL CASTRO MD [facility] Anitha [address] [phone] 03/04/2024 14:07:27 03/05/2024 07:29:27 Adult health examination 016093062 Z00.00 Diet education 38916641 Z71.3 Exercises education, guidance, and counseling 497946978 Z71.82 Screening for disorder 080842003 Z13.31 Abnormal weight gain 161 117263 R63.5 Morbid obesity 871248221 E66.01 Health Concerns Section Related Observation LastModified by Organization Detai ls LastModified Time None Recorded Concern Status LastModified by Organization Details LastModified Time None Recorded Advance Directives Directive None Recorded Payers Insurance Date Sequence Insurance Name Policy Number Policy Guerrero Covered Member ID Guerrero Member ID Guarantor Name 10/02/2024 1 [facility] (MEDICAID HMO) [id number] Bunny Russo [id number] Rosalie Koroma 10/02/2024 1 [facility] - PLAN TYPE 3 (MEDICAID HMO) Bunny Martins [id number] Rosalie Koroma 10/02/2024 1 [facility] NET PLAN (MEDICAID HMO) [id number] Bunny Martins [id number] Rosalie Koroma 05/14/2007 1 *SELF PAY* Paulino Koroma 11/18/2024 2 [place] [facility] Bunny Russo [id number] Rosalie Koroma 11/18/2024 1 [id number] Bunny Russo [id number] Rosalie Koroma Notes Date Note Type [...] Meds taken. No sick contacts. Returned from [place] 3 days ago. Has just started using antibacterial soap. Has been swimming in ocean. Lesions started BUEs - R antecub fossa area and L axilla but not where hair is present, now also on L lower abd/L popliteal fossae/R cheek and R eyebrow Leilani Casey MD [address] [place] [address], , [facility] 02/08/2022 14:06:26 05/12/2022 text/html [...] yesterday.Brother w/ similar sx. Jory Carlos MD [address] [place] [address], , [facility] 05/12/2022 19:46:33 01/16/2024 text/html RS Sick Visit Narrative HistoryReported bypatient.Notes:Pt is here for a ST x 4 days.Dry cough, Congestion x 4 days.Intermittent SOB noticed 2 days ago. Hasn't been using inhaler.AfebrileNo sx of N/V/D, No FAN, No ear pain, No body aches, Afebrile.OTC meds Taken.Girlfriend dx w/ PNA 2 wks ago.Needs new Rx for inhaler. Leilani Casey MD [address] [place] [address], [phone], [facility] 01/16/2024 16:56:22
== END 2025-01-26 10:01 | disposition home or self-care (01) ==
LOC: HO.XRAY 10:00
PROVIDERS: Visit Provider Surgery
DX: E66.01 Morbid (severe) obesity due to excess calories (principal); J45.909 Unspecified asthma, uncomplicated
CPT/HCPCS: 74246

== ENCOUNTER → 2025-01-26 10:31 | Outpatient (BNV) | payer OTHER, SELFPAY | PROVIDERS: Visit Provider Radiology Diagnostic Radiology | DX: R12 Heartburn (principal) | CPT/HCPCS: 74246 ==

== ENCOUNTER 2025-02-10 09:42 | Outpatient (REF) | payer OTHER, SELFPAY ==
--- NOTE | ~2025-02-10 | US_ITS ---
EXAMINATION: US ABDOMEN COMPLETE WITH LIVER ELASTOGRAPHY HISTORY: E66.01 - Morbid (severe) obesity due to excess calories TECHNIQUE: Real-time grayscale ultrasound imaging of the abdomen was performed and images were reviewed. COMPARISON: There are no prior studies available for comparison. FINDINGS: Liver: The right lobe of the liver measures 17.0 cm in size. The left lobe of the liver measures 9.8 cm in size. The liver demonstrates increased echotexture, consistent with steatosis. There is focal fatty sparing adjacent to the gallbladder. No focal mass or intrahepatic biliary ductal dilatation is identified. There is normal hepatopedal flow in the portal vein. Ultrasound elastography of the liver was performed with 10 separate measurements of the liver parenchyma with the patient in the supine position. Measurements were obtained approximately 2 cm below David's capsule and perpendicular to the capsule. The median shear wave velocity is 1.45 m/s. The interquartile range/median (IQR/median) is 0.15. Gallbladder and biliary tree: The gallbladder is unremarkable, without evidence of calculi, wall thickening, or pericholecystic fluid. There is no sonographic Mcmullen sign. The common bile duct is normal in caliber measuring 4 mm. Kidneys: The right kidney measures 11.5 cm in length. The left kidney measures 12.0 cm in length. The kidneys are unremarkable, without evidence of masses, hydronephrosis, or calculi. Pancreas: The pancreatic head, neck, and body are unremarkable. The pancreatic tail is obscured by bowel gas. Spleen: The spleen is normal in size and contour, measuring 13.5 cm in length. Abdominal aorta and inferior vena cava: The visualized portions of the abdominal aorta and inferior vena cava are normal in caliber. There is no free fluid in the abdomen. US/US abdomen comp w elastography IMPRESSION: Hepatosplenomegaly and hepatic steatosis. The median shear wave velocity in the liver is 1.45 m/s, corresponding to a median liver stiffness of 6.45 kPa. The IQR/median value is 0.15. This is indicative of a poor quality data set, and the estimated liver stiffness may be unreliable. Findings are indicative of a low elastography value which rules out advanced chronic liver disease in asymptomatic patients. REFERENCE: Society of Radiologists in Ultrasound Liver Stiffness Thresholds (2020): LIVER STIFFNESS THRESHOLDS: *Shear wave velocity less than 1.3 m/s (Liver Stiffness equal or less than 5 kPa): High probability of being normal. *Shear wave velocity less than 1.7 m/s (Liver Stiffness less than 9 kPa): In the absence of other known clinical signs, rules out compensated advanced chronic liver disease. *Shear wave velocity between 1.7-2.1 m/s (Liver Stiffness 9-13 kPa): Suggestive of compensated advanced chronic liver disease but need further test for confirmation. *Shear wave velocity between 2.1-2.4 m/s (Liver Stiffness 13-17 kPa): Rules in compensated advanced chronic liver disease. *Shear wave velocity greater than 2.4 m/s (Liver Stiffness over 17 kPa): Suggestive of clinically significant portal hypertension. QUALITY OF DATA SET: *IQR/Median value equal or less than 0.15 implies a quality data set. *IQR/Median value over 0.15 implies a poor quality data set. SIGNIFICANT CHANGE FROM PRIOR EXAM: Significant change if liver stiffness measurement is 10% or greater from prior exam. OTHER CONSIDERATIONS: The stage of liver fibrosis may be overestimated in the setting of acute hepatitis, liver inflammation, elevated liver function tests, hepatic vascular congestion, obstructive cholestasis, non-fasting state, and infiltrative diseases such as amyloidosis and lymphoma. In some patients with NAFLD, the liver stiffness thresholds for compensated advanced chronic liver disease may be lower. In causes other than viral hepatitis and NAFLD, liver stiffness thresholds are not well established. Electronically signed by: Sean Schrader MD 02/10/2025 10:43 AM EDT
== END 2025-02-10 09:43 | disposition home or self-care (01) ==
LOC: HO.US 09:42
PROVIDERS: Visit Provider Surgery
DX: E66.01 Morbid (severe) obesity due to excess calories (principal); J45.909 Unspecified asthma, uncomplicated
CPT/HCPCS: 76700; 76981

== ENCOUNTER → 2025-02-10 09:43 | Outpatient (BNV) | payer OTHER, SELFPAY | PROVIDERS: Visit Provider Radiology Diagnostic Radiology | DX: R16.2 Hepatomegaly with splenomegaly, not elsewhere classified (principal) | CPT/HCPCS: 76700 ==